=== PATIENT | female | born 1955 | race Caucasian/White ===

== ENCOUNTER 2019-08-11 17:01 | Inpatient (IN) | payer MEDICARE, OTHER ==
[2019-08-11] MEDS ORDERED: Nitroglycerin 2% Ointment 1 INCH/1 GM Packet ONE (17:48)
[2019-08-11] MEDS ORDERED: Magnesium 2 GM/50 ML BAG (IN WATER) ONE (18:00)
[2019-08-11] MEDS ORDERED: methylPREDNISolone Sod Succ/PF 125 MG/2 ML VIAL ONE (18:00)
[2019-08-11] MEDS ORDERED: Furosemide 40 MG/4 ML VIAL ONE (18:00)
[2019-08-11] MEDS ORDERED: Aspirin Chewable 81 MG TAB ONE (18:00)
[2019-08-11 18:28] LABS: #Eosinphils 0.1 thou/uL (0.0-0.7); #Lymphocytes 0.8 thou/uL (1.20-3.40); #Monocytes 0.5 thou/uL (0.11-0.59); #Neutrophils 6.9 thou/uL (1.40-6.50); %Basophils 0.1 % (0.0-1.0); %Eosinophils 0.9 % (0.0-10.0); %Lymphocytes 9.6 % (21.0-51.0); %Monocytes 5.7 % (0.0-10.0); %Neutrophils 83.6 % (42.0-75.0); Mean Corpuscular HGB CONC 32.7 g/dL (32.0-36.0); Mean Corpuscular Hemoglobin 27.4 pg (27.0-31.0); Mean Corpuscular Volume 83.6 fL (78.0-98.0); Mean Platelet Volume 11.8 fL (7.4-10.4); Platelet Count 127 thou/uL (130-400); RBC Distribution Width 15.5 % (11.5-14.5); Red Blood Cell (RBC) Count 4.37 mill/uL (4.20-5.40); White Blood Cell (WBC) Count 8.2 thou/uL (4.8-10.8)
--- NOTE | 2019-08-11 18:30 | RAD ---
CHEST TWO VIEWS: 08/11/19 COMPARISON: None. HISTORY: Difficulty breathing with shortness of breath. FINDINGS: Heart is enlarged. Pulmonary vascular congestion noted with increased linear interstitial density in the perihilar regions in both lung bases. Midline sternotomy wires are noted. No pneumothorax. Small bilateral pleural effusions. IMPRESSION: Cardiomegaly with pulmonary vascular congestion, interstitial prominence in the lung bases and bilate ral pleural effusions suggest pulmonary edema. Superimposed infection or aspiration cannot be exclude d. Follow-up imaging following treatment to document resolution advised. POS: IRLANDA
[2019-08-11 18:49] LABS: ALT (SGPT) 25 U/L (8-55); AST (SGOT) 24 U/L (5-34); Albumin 3.4 g/dL (3.4-4.8); Alkaline Phosphatase 181 U/L (40-110); Anion Gap 12 mmol/L (10-20); BUN (Urea Nitrogen) 11 mg/dL (9.8-20.1); Bilirubin, Total 0.4 mg/dL (0.2-1.2); CK (CPK) 42 U/L (29-168); Calc. Creatinine Clearance 0 mL/min (70-130); Calcium 9.7 mg/dL (7.8-10.44); Carbon Dioxide 27 mmol/L (23-31); Chloride 101 mmol/L (98-107); Estimated GFR-MDRD 28; Globulin 3.2 g/dL (2.4-3.5); Glucose 384 mg/dL (80-115); Magnesium 1.6 mg/dL (1.6-2.6); Potassium 3.9 mmol/L (3.5-5.1); Protein, Total 6.6 g/dL (6.0-8.3); Sodium 136 mmol/L (136-145)
[2019-08-11 19:17] LABS: CKMB 1.6 ng/mL (0-6.6)
--- NOTE | 2019-08-11 20:49 | PDOC.FPRHP ---
- History of Present Illness Chief Complaint: Cough, Dyspnea History of Present Illness: Pt is a 64 yo female with PMH significant for heart failure, COPD, HTN, Depression, A-Fib, CVA 2008, [place] w 2-3 stents, CABG x 2, CKD Stage III, bipolar, restless leg syndrome who presents with a 3 day history of worsening dyspnea, cough, sputum production, chest tightness. She states she recently had a COPD exacerbation treated 4 months ago. She usually requires 4 L NC during the day, bipap at night. Due to her worsening symptoms she decided to be seen. SHe continues to smoke 5 cigarettes per day. She was using her nebulizer 3x/day, continued her other medications as normally directed. She is currently in town to see family but normally is seen by her PCP in [place]. She also has a pulm physician most recently seen 1.5 months ago. ED Course: In the ED pt was found to have respiratory failure requiring initiation of bipap. She was afebrile. BNP elevated to 585, trop 0.036, BG 384. She was given lasix 40 mg IV once, duonebs with good improvement of symptoms. - Allergies/Adverse Reactions Allergies Allergy/AdvReac Type Severity Reaction Status Date / Time codeine Allergy Intermediate Hives Verified 08/12/19 07:33 - Home Medications Medication Instructions Recorded Confirmed Type Amiodarone [Cordarone] 200 mg PO DAILY 08/12/19 08/12/19 History Apixaban [Eliquis] 5 mg PO BID 08/12/19 08/12/19 History Atorvastatin Calcium 80 mg PO HS 08/12/19 08/12/19 History Budesonide-Formoterol [Symbicort 1 - 2 puff IN PRN PRN 08/12/19 08/12/19 History 80-4.5] Carvedilol [Coreg] 12.5 mg PO BID 08/12/19 08/12/19 History Donepezil HCl [Aricept] 5 mg PO HS 08/12/19 08/12/19 History FLUoxetine HCl 20 mg PO BID 08/12/19 08/12/19 History Ferrous Sulfate 325 mg PO DAILY 08/12/19 08/12/19 History Furosemide 40 mg PO BID 08/12/19 08/12/19 History Gabapentin 300 mg PO BID 08/12/19 08/12/19 History Insulin Glargine,Hum.Rec.Anlog 0 units SQ DAILY 08/12/19 08/12/19 History [Lantus] Insulin Lispro [Humalog Kwikpen] 0 unit SQ ASDIR 08/12/19 08/12/19 History Ipratropium [place] 0.5 mg NEB Q6HR 08/12/19 08/12/19 History Isosorbide Dinitrate 30 mg PO DAILY 08/12/19 08/12/19 History Levalbuterol HCl [Xopenex] 1.25 mg IH Q6HR 08/12/19 08/12/19 History Nitroglycerin [Nitrostat] 0.4 mg SL Q5MIN PRN 08/12/19 08/12/19 History Ondansetron HCl [Zofran] 4 mg PO Q6HR PRN 08/12/19 08/12/19 History Pantoprazole [Protonix] 40 mg PO BID 08/12/19 08/12/19 History Spironolactone [Aldactone] 25 mg PO DAILY 08/12/19 08/12/19 History Tiotropium [place] [Spiriva] 18 mcg IH DAILY 08/12/19 08/12/19 History clonazePAM [Klonopin] 1 mg PO TID PRN 08/12/19 08/12/19 History hydrALAZINE [Apresoline] 50 mg PO TID 08/12/19 08/12/19 History rOPINIRole HCl [Ropinirole HCl] 1 mg PO HS 08/12/19 08/12/19 History risperiDONE [RisperDAL] 0.25 mg PO DAILY 08/12/19 08/12/19 History - History PMHx: heart failure, COPD, HTN, Depression, A-Fib, CVA 2008, [place] w 2-3 stents, CABG x 2, CKD Stage III, bipolar, restless leg syndrome PSHx: R Femur Jayce placed, partial hysterectomy, benign breast tumor removal, cholecystectomy FHx: non-contributory Social: 5 cigarettes per day, denies alcohol/drugs - Review of Systems General: denies: fever/chills, weight/appetite/sleep changes ENT: denies: nasal congestion, rhinorrhea Respiratory: reports: cough, congestion, shortness of breath Cardiovascular: reports: edema, orthopnea, other (chest tightness). denies: chest pain, palpitation Gastrointestinal: denies: nausea, vomiting, diarrhea, constipation Skin: denies: rashes, lesions Neurological: denies: numbness, syncope Psychological: denies: anxiety, depression - Vital signs BP: 186/76 HR: 55 RR: 20 Tmax: 98.9 Pox: 98% on BiPAP Wt: 118 kg - Physical Exam Constitutional: NAD, awake, alert and oriented HEENT: PERRLA, EOMI Neck: supple, FROM Heart: RRR, normal S1/S2 -Heart: Trace LE edema -Lungs: Poor air movement, did not appreciate crackles or exp wheeze. Musculoskeletal: normal structure, normal tone Neurological: no focal deficit, CN II-XII intact Skin: capillary refill <2 seconds Heme/Lymphatic: no purpura, no petechia Psychiatric: good judgment and insight FMR H&P: Results - Labs Result Diagrams: 08/12/19 04:16 08/12/19 04:16 Lab results: WBC 8.2 thou/uL (4.8-10.8) 08/11/19 18:18 Hgb 12.0 g/dL (12.0-16.0) 08/11/19 18:18 Hct 36.6 % (36.0-47.0) 08/11/19 18:18 MCV 83.6 fL (78.0-98.0) 08/11/19 18:18 Plt Count 127 thou/uL (130-400) L 08/11/19 18:18 Neutrophils % 83.6 % (42.0-75.0) H 08/11/19 18:18 Sodium 136 mmol/L (136-145) 08/11/19 18:18 Potassium 3.9 mmol/L (3.5-5.1) 08/11/19 18:18 Chloride 101 mmol/L (98-107) 08/11/19 18:18 Carbon Dioxide 27 mmol/L (23-31) 08/11/19 18:18 BUN 11 mg/dL (9.8-20.1) 08/11/19 18:18 Creatinine 1.80 mg/dL (0.6-1.1) H 08/11/19 18:18 Glucose 384 mg/dL (80-115) H 08/11/19 18:18 Lactic Acid 0.6 mmol/L (0.5-2.2) 08/11/19 18:18 Calcium 9.7 mg/dL (7.8-10.44) 08/11/19 18:18 Total Bilirubin 0.4 mg/dL (0.2-1.2) 08/11/19 18:18 AST 24 U/L (5-34) 08/11/19 18:18 ALT 25 U/L (8-55) 08/11/19 18:18 Alkaline Phosphatase 181 U/L (40-110) H 08/11/19 18:18 Creatine Kinase 42 U/L (29-168) 08/11/19 18:18 CK-MB (CK-2) 1.6 ng/mL (0-6.6) 08/11/19 18:18 B-Natriuretic Peptide 585.9 pg/mL (0-100) H 08/11/19 18:18 Serum Total Protein 6.6 g/dL (6.0-8.3) 08/11/19 18:18 Albumin 3.4 g/dL (3.4-4.8) 08/11/19 18:18 - Radiology Interpretation Chest x-ray Status: report reviewed by me (Cardiomegaly w/ pulmonary congestion, pleural effusions) FMR H&P: A/P - Problem List (1) Bipolar disorder Current Visit: Yes Status: Acute Code(s): F31.9 - BIPOLAR DISORDER, UNSPECIFIED (2) Restless leg syndrome Current Visit: Yes Status: Acute (3) Acute respiratory failure with hypoxia Current Visit: Yes Status: Acute Code(s): J96.01 - ACUTE RESPIRATORY FAILURE WITH HYPOXIA (4) A-fib Current Visit: Yes Status: Chronic Code(s): I48.91 - UNSPECIFIED ATRIAL FIBRILLATION (5) CAD (coronary artery disease) Current Visit: Yes Status: Chronic Code(s): I25.10 - ATHSCL HEART DISEASE OF [place] CORONARY ARTERY W/O ANG PCTRS (6) CKD (chronic kidney disease) stage 3, GFR 30-59 ml/min Current Visit: Yes Status: Chronic Code(s): N18.3 - CHRONIC KIDNEY DISEASE, STAGE 3 (MODERATE) (7) Diabetes mellitus type 2, uncontrolled Current Visit: Yes Status: Chronic Code(s): E11.65 - TYPE 2 DIABETES MELLITUS WITH HYPERGLYCEMIA Qualifiers: Glycemic state: with hyperglycemia Qualified Code(s): E11.65 - Type 2 diabetes mellitus with hyperglycemia (8) HTN (hypertension) Current Visit: Yes Status: Chronic Code(s): I10 - ESSENTIAL (PRIMARY) HYPERTENSION (9) History of CVA (cerebrovascular accident) Current Visit: Yes Status: Chronic Code(s): Z86.73 - PRSNL HX OF TIA (TIA), AND CEREB INFRC W/O RESID DEFICITS (10) Hx of CABG Current Visit: Yes Status: Chronic - Plan Pt is here for COPD exacerbation, CHF exacerbation: # COPD Exacerbation Poor air movement on exam. Worsening cough over last 3 days with sputum production. 4 L at home during day, BiPAP during the night. Required BiPAP in the ED so admitted to the [facility]. Spoke with pt for 5 mins with BiPAP off and O2 sats in the low 90's, pt did appear to tire easily so continued BiPAP. She has hx of COPD exacerbations most recently 4 months ago in [place]. WBC WNL. - cont home meds - duonebs - levaquin continued from ed # CHF Exacerbation No records of previous echo. BNP 585 - echo pending - lasix 40 IV BID increased from home 40 PO BID # HTN Elevated on admission. - continue home meds # DM Not currently on medication. Elevated in ED. Started mild SSI. - monitor - a1c pending # A-Fib - continue home meds # Restless Leg Syndrome - continue home meds # Bipolar - continue home meds # CKD - monitor # CAD w/ 2 stents # CABG x 2 - continue home meds # Hx of CVA No motor, sensory deficits per pt - continue home meds Fluids: none Diet: HH, CC VTE: Lovenox, CrCl 59, GFR 32 Code: full Dispo: > 2 midnight stay FMR H&P: Upper Level - Plan Date/Time: 08/11/192048 ISalas MD, have evaluated this patient and agree with findings/plan as outlined by sports team marketing intern resident. Pertinent changes/additions are listed here. Emilee Fernandez is a 64 year old F with a PMH of COPD, CHF, HTN, HLD who presented to the ED with a 3 day history of dyspnea and productive cough. Has had associated decreased appetite and urine output. Normally uses 4 L NC during day and BiPAP at night. She had had to use her nebulizers about 3 times a day over the last few days. States that she has had COPD and CHF exacerbations several times over the last couple years. Emergency Management Director is in [place]. In the ED, BP was 186/76, HR 55, RR 20, and 98% on BiPAP, T was 98.9. Labs: BNP 585, Trop 0.036, WBC 8.2, Cr 1.8, Lactic acid 0.6, Glucose 384. CXR showed cardiomegaly with pulmonary vascular congestion and bilateral pleural effusions. In the ED, she was given Levaquin 750 mg, Mag Sulf 2 g, Furosemide, Methylprednisolone 125 mg, Duoneb X2, and nitro paste. Pt endorsed symptom improvement when admitting team evaluated her. On exam, patient had decreased air movement and bibasilar rales, was using BiPAP but was able to speak comfortably when removed. Trace LE edema. Admitting to [facility] for acute hypoxic respiratory failure 2/2 COPD and CHF exacerbations. Will treat for COPD exac with levaquin, steroids, and duonebs and continue BiPAP overnight and wean at tolerated. Will continue home CHF medication and increase to IV lasix 40 mg bid. Daily weights, strict I/Os. Trend troponins. Patient has HENRRY , likely to fluid overload. Anticipate that it will improve with diuresis. Anticipate hospital stay > 48 hours. Pt is full code. Please see sports team marketing intern note above for full H&P, which I have reviewed and agree with.
[2019-08-11 21:59] LABS: Troponin I 0.027 ng/mL (< 0.028)
[2019-08-11] MEDS ORDERED: hydrALAZINE 25 MG TAB PO SCH (22:30)
[2019-08-11] MEDS ORDERED: Carvedilol 6.25 MG TAB PO SCH (22:30)
[2019-08-12 00:56] LABS: Troponin I 0.057 ng/mL (< 0.028)
[2019-08-12] MEDS ORDERED: Dextrose 5% in Water 1,000 ML IV PRN (01:36)
[2019-08-12] MEDS ORDERED: Dextrose 50% Abboject 50 ML SYRINGE SLOW IVP PRN (01:36)
[2019-08-12 02:02] VITALS: BMI 40.4
[2019-08-12] MEDS ORDERED: rOPINIRole HCl 1 MG TAB PO SCH ×2 (03:45→21:00)
[2019-08-12 04:31] LABS: Hemoglobin A1c 10.3 % (4.0-6.0)
[2019-08-12 04:38] LABS: Band 2 % (5-11); Hemoglobin 11.3 g/dL (12.0-16.0); Hypochromia SLIGHT = 6-15 cells (100X) (0-5/hpf); Lymphocytes 3 % (21-51); MDiff Complete? YES; Mean Corpuscular HGB CONC 32.7 g/dL (32.0-36.0); Mean Corpuscular Hemoglobin 27.3 pg (27.0-31.0); Mean Corpuscular Volume 83.5 fL (78.0-98.0); Mean Platelet Volume 11.2 fL (7.4-10.4); Neutrophil 95 % (42-75); Platelet Count 124 thou/uL (130-400); Platelet Morphology Comment Appears Decreased; RBC Distribution Width 15.4 % (11.5-14.5); Red Blood Cell (RBC) Count 4.15 mill/uL (4.20-5.40); White Blood Cell (WBC) Count 6.6 thou/uL (4.8-10.8)
[2019-08-12 04:45] LABS: Anion Gap 13 mmol/L (10-20); BUN (Urea Nitrogen) 15 mg/dL (9.8-20.1); Calc. Creatinine Clearance 52 mL/min (70-130); Calcium 9.5 mg/dL (7.8-10.44); Carbon Dioxide 26 mmol/L (23-31); Chloride 99 mmol/L (98-107); Estimated GFR-MDRD 28; Glucose 479 mg/dL (80-115); Potassium 4.5 mmol/L (3.5-5.1); Sodium 133 mmol/L (136-145)
--- NOTE | 2019-08-12 05:32 | PDOC.FM ---
- Subjective Subjective: Pt reports doing better since admission. States she is very SOB when off of the BiPAP. Denies CP. - Objective MAR Reviewed: Yes Vital Signs & Weight: Vital Signs (12 hours) Temp Pulse Resp Pulse Ox 08/12/19 02:01 96.9 F L 08/12/19 01:36 55 L 24 H 08/12/19 01:00 100 Weight Weight 106.685 kg Most Recent Monitor Data Heart Rate from ECG 52 NIBP 173/54 NIBP BP-Mean 93 Respiration from ECG 6 SpO2 100 Result Diagrams: 08/12/19 04:16 08/12/19 04:16 Phys Exam - Physical Examination Constitutional: NAD HEENT: PERRLA, moist MMs Neck: no nodes, no JVD diminished breath sounds diffusely. Cardiovascular: RRR, no significant murmur Gastrointestinal: soft, non-tender, no distention Neurological: non-focal, moves all 4 limbs Psychiatric: normal affect, A&O x 3 Skin: no rash, normal turgor Dx/Plan (1) Acute respiratory failure with hypoxia Code(s): J96.01 - ACUTE RESPIRATORY FAILURE WITH HYPOXIA Status: Acute (2) COPD with exacerbation Code(s): J44.1 - CHRONIC OBSTRUCTIVE PULMONARY DISEASE W (ACUTE) EXACERBATION Status: Acute (3) HTN (hypertension) Code(s): I10 - ESSENTIAL (PRIMARY) HYPERTENSION Status: Chronic (4) CAD (coronary artery disease) Code(s): I25.10 - ATHSCL HEART DISEASE OF [place] CORONARY ARTERY W/O ANG PCTRS Status: Chronic (5) Hx of CABG Status: Chronic (6) CKD (chronic kidney disease) stage 3, GFR 30-59 ml/min Code(s): N18.3 - CHRONIC KIDNEY DISEASE, STAGE 3 (MODERATE) Status: Chronic (7) A-fib Code(s): I48.91 - UNSPECIFIED ATRIAL FIBRILLATION Status: Chronic (8) History of CVA (cerebrovascular accident) Code(s): Z86.73 - PRSNL HX OF TIA (TIA), AND CEREB INFRC W/O RESID DEFICITS Status: Chronic (9) Diabetes mellitus type 2, uncontrolled Code(s): E11.65 - TYPE 2 DIABETES MELLITUS WITH HYPERGLYCEMIA Status: Chronic Qualifiers: Glycemic state: with hyperglycemia Qualified Code(s): E11.65 - Type 2 diabetes mellitus with hyperglycemia - Plan Plan: Pt is here for COPD exacerbation, CHF exacerbation: # Acute hypoxic respiratory failure 2/2 COPD Exacerbation Poor air movement on exam. Worsening cough over last 3 days with sputum production. 4 L at home during day, CPAP during the night. Required BiPAP in the ED so admitted to the [facility]. Spoke with pt for 5 mins with BiPAP off and O2 sats in the low 90's, pt did appear to tire easily so continued BiPAP. She has hx of COPD exacerbations most recently 4 months ago in [place]. WBC WNL. Baseline respiratory status requires 4 L NC home O2, with BiPAP at night. - cont home meds - duonebs - levaquin continued from ed # CHF Exacerbation No records of previous echo. BNP 585 - echo pending - lasix 40 IV BID increased from home 40 PO BID # HTN Elevated on admission. - continue home meds # DM Takes Levamir 20 units BID at home. glucose elevated in ED. Started mild SSI. - monitor accuchecks ACHS. - a1c 10.3 # A-Fib - continue home meds # Restless Leg Syndrome - continue home meds # Bipolar - continue home meds # CKD - monitor # CAD w/ 2 stents # CABG x 2 - continue home meds # Hx of CVA No motor, sensory deficits per pt - continue home meds Fluids: none Diet: HH, CC VTE: Lovenox, CrCl 59, GFR 32 Code: full Dispo: > 2 midnight stay Addendum - Attending - Attending Attestation Date/Time: 08/12/19 1021 I personally evaluated the patient and discussed the management with Dr. Scott. I agree with the History, Examination, Assessment and Plan documented above with any addition or exceptions noted below. The patient continues to require bipap. No lower extremity edema noted at this time. Will continue home dose of lasix. Pulmonology is being consulted. Continue steroids, nebs, antibiotics.
[2019-08-12] MEDS ORDERED: Nitroglycerin 0.4 MG TAB (25 Tab Bottle) SL PRN (06:45)
[2019-08-12] MEDS ORDERED: Ondansetron ODT 4 MG TAB PO PRN (06:56)
[2019-08-12] MEDS ORDERED: Ipratropium Bromide 2.5 ml Neb NEB SCH (07:00)
[2019-08-12] MEDS: Mometasone/Formoterol 120 PUFF INHALER INH SCH ×2 (07:01→18:24)
[2019-08-12] MEDS: HumaLOG 300 UNITS/3 ML VIAL SC PRN ×3 (07:35→21:10)
--- NOTE | 2019-08-12 08:09 | PDOC.BPN ---
- Brief Progress Note Date/Time: 08/12/19 2796 I personally evaluated the patient and discussed the management with Dr. Richter at time of admisssion last night. H&P is pending. I agree with the History, Examination, Assessment and Plan as discussed. COPD and CHF exacerbation. She was responding well to Bipap in the ER when I evaluated her.
[2019-08-12] MEDS ORDERED: Enoxaparin Sodium 30 MG/0.3 ML SYRINGE SC SCH (09:00)
[2019-08-12] MEDS: Apixaban 5 MG TAB PO SCH ×2 (10:04→20:22)
[2019-08-12] MEDS: Spironolactone 25 MG TAB PO SCH (10:04)
[2019-08-12] MEDS: Carvedilol 6.25 MG TAB PO SCH ×2 (10:04→20:21)
[2019-08-12] MEDS: Isosorbide Dinitrate 20 MG TAB PO SCH (10:05)
[2019-08-12] MEDS: hydrALAZINE 25 MG TAB PO SCH ×3 (10:05→20:21)
[2019-08-12] MEDS: FLUoxetine HCl 20 MG CAP PO SCH ×2 (10:05→20:21)
[2019-08-12] MEDS: Ferrous Sulfate 325 MG TAB PO SCH (10:06)
[2019-08-12] MEDS: Insulin Glargine 20 UNITS in Pre-Filled Syringe 1 EACH SC SCH ×2 (10:06→21:10)
[2019-08-12] MEDS: predniSONE 20 MG TAB PO SCH (10:06)
[2019-08-12] MEDS: Gabapentin 300 MG CAP PO SCH ×2 (10:06→20:22)
[2019-08-12] MEDS: risperiDONE 0.25 MG TAB PO SCH (10:07)
[2019-08-12] MEDS ORDERED: LEVALBUTEROL HCL 1.25 MG IH SCH (12:00)
--- NOTE | 2019-08-12 15:26 | CON ---
DATE OF CONSULTATION: 08/12/2019 REASON FOR CONSULTATION: IMCU placement. HISTORY OF PRESENT ILLNESS: This is a 64-year-old female, who has been doing poorly for increasing shortness of breath over 3 days prior to admission. She normally has her care in [place], but however has visiting family. She has history of diastolic heart failure. She also has COPD and is on oxygen at 4 L nasal cannula at home. She continues to smoke about 5 cigarettes per day. She is hospitalized at least twice a year over in [place] with similar exacerbation symptoms. PAST MEDICAL HISTORY: 1. COPD. 2. Diastolic heart failure. 3. Atrial fibrillation. 4. Depression. 5. Hypertension. 6. Coronary artery disease. 7. Stroke. 8. Bipolar disorder. 9. Restless legs syndrome. PAST SURGICAL HISTORY: 1. Right femur vicente placement. 2. Hysterectomy. 3. Benign breast tumor removal. 4. Cholecystectomy. 5. Coronary artery bypass grafting surgery. SOCIAL HISTORY: Smokes 5 cigarettes per day. Does not consume alcohol. Does not use illicit drugs. MEDICATIONS: Prior to admission; 1. Amiodarone. 2. Eliquis. 3. Atorvastatin. 4. Carvedilol. 5. Aricept. 6. Fluoxetine. 7. Furosemide. 8. Gabapentin. 9. Insulin lispro. 10. Ipratropium. 11. Albuterol. 12. Spironolactone. 13. Zofran. 14. Clonazepam. 15. Hydralazine. 16. Ropinirole. 17. Risperidone. REVIEW OF SYSTEMS: Remarkable for shortness of breath, cough, congestion, subjective fever, and chills. No nausea, vomiting, hematemesis, melena, hematochezia, hematuria, or dysuria. PHYSICAL EXAMINATION: VITAL SIGNS: Temperature 97.6, pulse 67, blood pressure 176/77, and O2 saturation 100% on 2 L. GENERAL: She is awake, alert, in no distress. She is 5 feet and 4 inches, weighs 235 pounds, and BMI is 40. HEENT: Class IV Mallampati airway. NECK: Without adenopathy or JVD. LUNGS: Inspiratory crackles at both bases. CARDIAC: S1 and S2. Regular. No audible wheezing. ABDOMEN: Soft, obese, nontender, and nondistended. EXTREMITIES: No clubbing, cyanosis, or edema. LABORATORY DATA: BNP level is 585. Sodium 133, potassium 4.5, chloride 99, CO2 of 26, BUN 15, creatinine 1.8, and glucose 430. Procalcitonin level 0.5. White blood cell count 6.6, hematocrit 34.7, and platelet count 124. IMAGING DATA: Chest x-ray shows cardiomegaly along with pulmonary vascular congestion. ASSESSMENT: 1. Congestive heart failure exacerbation, diastolic. 2. Chronic obstructive pulmonary disease with exacerbation. 3. Tobacco abuse. 4. Underlying obstructive sleep apnea. PLAN: Reviewed the orders. I agree with diuresing the patient, treating with steroids, nebulization therapy, and antibiotics. She is on BiPAP at home. She needs to continue that at night. Job ID: [id number]
[2019-08-12] MEDS ORDERED: Mometasone/Formoterol 120 PUFF INHALER INH PRN (18:30)
[2019-08-12] MEDS: Atorvastatin Calcium 40 MG TAB PO SCH (20:22)
[2019-08-12] MEDS: Donepezil HCl 5 MG TAB PO SCH (20:22)
[2019-08-12] MEDS: rOPINIRole HCl 1 MG TAB PO SCH (20:22)
[2019-08-12] MEDS ORDERED: Furosemide 40 MG TAB PO SCH (21:00)
[2019-08-13 05:09] LABS: Anion Gap 8 mmol/L (10-20); BUN (Urea Nitrogen) 26 mg/dL (9.8-20.1); Calc. Creatinine Clearance 48 mL/min (70-130); Carbon Dioxide 28 mmol/L (23-31); Chloride 99 mmol/L (98-107); Estimated GFR-MDRD 25; Glucose 402 mg/dL (80-115); Potassium 4.4 mmol/L (3.5-5.1); Sodium 131 mmol/L (136-145)
[2019-08-13 05:20] LABS: Band 7 % (5-11); Hemoglobin 9.8 g/dL (12.0-16.0); Lymphocytes 9 % (21-51); MDiff Complete? YES; Mean Corpuscular HGB CONC 32.7 g/dL (32.0-36.0); Mean Corpuscular Hemoglobin 27.6 pg (27.0-31.0); Mean Corpuscular Volume 84.6 fL (78.0-98.0); Mean Platelet Volume 11.8 fL (7.4-10.4); Monocytes 6 % (0-10); Neutrophil 78 % (42-75); Platelet Count 114 thou/uL (130-400); Platelet Morphology Comment Appears Decreased; RBC Distribution Width 15.4 % (11.5-14.5); RBC Morphology Normal; Red Blood Cell (RBC) Count 3.55 mill/uL (4.20-5.40); White Blood Cell (WBC) Count 10.6 thou/uL (4.8-10.8)
--- NOTE | 2019-08-13 06:11 | PDOC.FM ---
- Subjective Subjective: Pt states she used the BiPAP machine for the majority of the day yesterday. She states today she will try and take the mask off and use NC. PT was on NC sitting in bed at 100% saturation while speaking with me. States she is starting to cough mucus up and feeling like she can take deeper breaths. - Objective MAR Reviewed: Yes Vital Signs & Weight: Vital Signs (12 hours) Temp Pulse Resp BP Pulse Ox 08/13/19 04:00 98.2 F 08/13/19 00:20 54 L 18 99 08/13/19 00:15 49 L 16 100 08/12/19 23:37 97.9 F 08/12/19 20:21 59 L 162/57 H 08/12/19 20:00 100 08/12/19 19:46 98.4 F 08/12/19 18:23 59 L 24 H 99 Weight Weight 106.685 kg Most Recent Monitor Data Heart Rate from ECG 46 NIBP 153/43 NIBP BP-Mean 79 Respiration from ECG 18 SpO2 100 I&O: 08/11/19 08/12/19 08/13/19 06:59 06:59 06:59 Intake Total 730 Output Total 500 Balance 230 Result Diagrams: 08/13/19 04:07 08/13/19 04:07 Phys Exam - Physical Examination Constitutional: NAD HEENT: moist MMs, sclera anicteric Neck: no JVD, supple, full ROM Respiratory: wheezing present diminished breath sounds. Cardiovascular: RRR, no significant murmur, no rub Gastrointestinal: soft, non-tender, no distention, positive bowel sounds Musculoskeletal: pulses present, edema present (trace BLE ) Neurological: non-focal, moves all 4 limbs Skin: no rash, normal turgor Dx/Plan (1) Acute respiratory failure with hypoxia Code(s): J96.01 - ACUTE RESPIRATORY FAILURE WITH HYPOXIA Status: Acute (2) COPD with exacerbation Code(s): J44.1 - CHRONIC OBSTRUCTIVE PULMONARY DISEASE W (ACUTE) EXACERBATION Status: Acute (3) HTN (hypertension) Code(s): I10 - ESSENTIAL (PRIMARY) HYPERTENSION Status: Chronic (4) CAD (coronary artery disease) Code(s): I25.10 - ATHSCL HEART DISEASE OF [place] CORONARY ARTERY W/O ANG PCTRS Status: Chronic (5) Hx of CABG Status: Chronic (6) CKD (chronic kidney disease) stage 3, GFR 30-59 ml/min Code(s): N18.3 - CHRONIC KIDNEY DISEASE, STAGE 3 (MODERATE) Status: Chronic (7) A-fib Code(s): I48.91 - UNSPECIFIED ATRIAL FIBRILLATION Status: Chronic (8) History of CVA (cerebrovascular accident) Code(s): Z86.73 - PRSNL HX OF TIA (TIA), AND CEREB INFRC W/O RESID DEFICITS Status: Chronic (9) Diabetes mellitus type 2, uncontrolled Code(s): E11.65 - TYPE 2 DIABETES MELLITUS WITH HYPERGLYCEMIA Status: Chronic Qualifiers: Glycemic state: with hyperglycemia Qualified Code(s): E11.65 - Type 2 diabetes mellitus with hyperglycemia - Plan Plan: Pt is here for COPD exacerbation, CHF exacerbation: # Acute hypoxic respiratory failure 2/2 COPD Exacerbation Poor air movement on exam. Worsening cough over last 3 days before admission with sputum production. Required BiPAP in the ED so admitted to the [facility]. Spoke with pt for 5 mins with BiPAP off and O2 sats in the low 90's, pt did appear to tire easily so continued BiPAP. She has hx of COPD exacerbations most recently 4 months ago in [place]. WBC WNL. Baseline respiratory status requires 4 L NC home O2, with BiPAP at night. - cont home meds - duonebs - levaquin continued from ed Blood and urine ccx no growth to date, flu A/B negative. # CHF Exacerbation, diastolic No records of previous echo. BNP 585 - echo 08/12: EF 55-60%, diastolic dysfunction. - lasix 40 BID PO. # HTN Elevated on admission. Improving. - continue home meds # DM Takes Levamir 20 units BID at home. glucose elevated in ED. Started mild SSI. - monitor accuchecks ACHS. - a1c 10.3 # A-Fib - continue home meds # Restless Leg Syndrome - continue home meds # Bipolar - continue home meds # CKD - monitor # CAD w/ 2 stents # CABG x 2 - continue home meds # Hx of CVA No motor, sensory deficits per pt - continue home meds Fluids: none Diet: HH, CC VTE: Lovenox, CrCl 59, GFR 32 Code: full Dispo: > 2 midnight stay
[2019-08-13] MEDS: HumaLOG 300 UNITS/3 ML VIAL SC PRN ×4 (06:22→20:29)
[2019-08-13] MEDS: Furosemide 40 MG TAB PO SCH ×2 (06:42→16:14)
[2019-08-13] MEDS: Mometasone/Formoterol 120 PUFF INHALER INH SCH ×2 (07:59→19:18)
[2019-08-13] MEDS: predniSONE 20 MG TAB PO SCH (09:08)
[2019-08-13] MEDS: Apixaban 5 MG TAB PO SCH ×2 (09:08→20:24)
[2019-08-13] MEDS: Isosorbide Dinitrate 20 MG TAB PO SCH (09:09)
[2019-08-13] MEDS: Ferrous Sulfate 325 MG TAB PO SCH (09:09)
[2019-08-13] MEDS: Gabapentin 300 MG CAP PO SCH ×2 (09:09→20:25)
[2019-08-13] MEDS: Carvedilol 6.25 MG TAB PO SCH ×2 (09:09→20:24)
[2019-08-13] MEDS: hydrALAZINE 25 MG TAB PO SCH ×3 (09:10→20:25)
[2019-08-13] MEDS: FLUoxetine HCl 20 MG CAP PO SCH ×2 (09:10→20:25)
[2019-08-13] MEDS: Spironolactone 25 MG TAB PO SCH (09:10)
[2019-08-13] MEDS: Insulin Glargine 20 UNITS in Pre-Filled Syringe 1 EACH SC SCH ×2 (09:10→20:29)
[2019-08-13] MEDS: risperiDONE 0.25 MG TAB PO SCH (09:11)
--- NOTE | 2019-08-13 11:34 | PRG ---
DATE OF SERVICE: 08/13/2019 SUBJECTIVE: Ms. Fernandez is in bed, talking on the phone. She says she feels better, had no acute complaints. OBJECTIVE: VITAL SIGNS: On exam, temperature 97.4, pulse 59, blood pressure 111/66, and O2 saturation 100% on nasal cannula. HEENT: Unremarkable. NECK: No adenopathy, JVD, or bruits. LUNGS: She has soft crackles in both bases. No wheezing. CARDIAC: S1 and S2. Regular. ABDOMEN: Soft. EXTREMITIES: No edema. LABORATORY DATA: White blood cell count 10.6, hematocrit 30, and platelet count 114. Sodium 131, potassium 4.4, BUN 26, creatinine 2.0, and glucose 402. ASSESSMENT: 1. Acute diastolic congestive heart failure with exacerbation. 2. Chronic obstructive pulmonary disease with possible exacerbation, although I favor decompensated heart failure being more likely cause of her issues. RECOMMENDATIONS: She is nearing the point where she can be discharged. She is currently on oral steroids. She has been switched to twice daily Lasix and she is currently on spironolactone. Pulmonary has no further recommendations. We will sign off. Job ID: [id number]
[2019-08-13] MEDS: Donepezil HCl 5 MG TAB PO SCH (20:24)
[2019-08-13] MEDS: Atorvastatin Calcium 40 MG TAB PO SCH (20:25)
[2019-08-13 20:26] VITALS: BP 144/52
[2019-08-13] MEDS: rOPINIRole HCl 1 MG TAB PO SCH (20:29)
[2019-08-14 04:13] LABS: Hemoglobin 10.1 g/dL (12.0-16.0); Hypochromia SLIGHT = 6-15 cells (100X) (0-5/hpf); Lymphocytes 14 % (21-51); MDiff Complete? YES; Mean Corpuscular HGB CONC 32.9 g/dL (32.0-36.0); Mean Corpuscular Hemoglobin 27.4 pg (27.0-31.0); Mean Corpuscular Volume 83.5 fL (78.0-98.0); Mean Platelet Volume 11.2 fL (7.4-10.4); Monocytes 4 % (0-10); Neutrophil 82 % (42-75); Platelet Count 126 thou/uL (130-400); Platelet Morphology Comment Appears Adequate; RBC Distribution Width 15.5 % (11.5-14.5); Red Blood Cell (RBC) Count 3.69 mill/uL (4.20-5.40); White Blood Cell (WBC) Count 10.6 thou/uL (4.8-10.8)
[2019-08-14 04:21] LABS: Anion Gap 12 mmol/L (10-20); BUN (Urea Nitrogen) 32 mg/dL (9.8-20.1); Calc. Creatinine Clearance 65 mL/min (70-130); Calcium 9.8 mg/dL (7.8-10.44); Carbon Dioxide 26 mmol/L (23-31); Chloride 100 mmol/L (98-107); Estimated GFR-MDRD 23; Glucose 227 mg/dL (80-115); Sodium 134 mmol/L (136-145)
--- NOTE | 2019-08-14 05:57 | PDOC.FM ---
- Subjective Subjective: upon entering the room pt is off of NC O2 and sating at 88%. She states she walked around yesterday evening and felt similar to her home baseline. She feels ready for d/c. Denies nay further coughing. States she still clears her throat occasionally. - Objective MAR Reviewed: Yes Vital Signs & Weight: Vital Signs (12 hours) Temp Pulse Resp BP Pulse Ox 08/14/19 03:43 97.8 F 08/14/19 00:00 100 08/13/19 23:45 97.8 F 08/13/19 23:21 61 16 100 08/13/19 20:25 65 144/52 H 08/13/19 20:24 144/52 H 08/13/19 20:00 100 08/13/19 19:43 98.2 F 08/13/19 19:18 59 L 20 99 08/13/19 19:17 59 L 18 100 Weight Weight 152.906 kg Most Recent Monitor Data Heart Rate from ECG 48 NIBP 146/53 NIBP BP-Mean 84 Respiration from ECG 15 SpO2 100 I&O: 08/12/19 08/13/19 08/14/19 06:59 06:59 06:59 Intake Total 1030 250 Output Total 900 550 Balance 130 -300 Result Diagrams: 08/14/19 03:38 08/14/19 03:38 Phys Exam - Physical Examination Constitutional: NAD HEENT: PERRLA, moist MMs, sclera anicteric Neck: no nodes, no JVD, supple, full ROM Respiratory: no rales, no rhonchi, clear to auscultation bilateral (slightly diminished breath sounds. ) Cardiovascular: RRR, no significant murmur, no rub Gastrointestinal: soft, non-tender, no distention Musculoskeletal: pulses present, edema present (trace BLE ) Neurological: non-focal, moves all 4 limbs Psychiatric: normal affect, A&O x 3 Skin: no rash, normal turgor, cap refill <2 seconds Dx/Plan (1) Acute respiratory failure with hypoxia Code(s): J96.01 - ACUTE RESPIRATORY FAILURE WITH HYPOXIA Status: Acute (2) COPD with exacerbation Code(s): J44.1 - CHRONIC OBSTRUCTIVE PULMONARY DISEASE W (ACUTE) EXACERBATION Status: Acute (3) HTN (hypertension) Code(s): I10 - ESSENTIAL (PRIMARY) HYPERTENSION Status: Chronic (4) CAD (coronary artery disease) Code(s): I25.10 - ATHSCL HEART DISEASE OF [place] CORONARY ARTERY W/O ANG PCTRS Status: Chronic (5) Hx of CABG Status: Chronic (6) CKD (chronic kidney disease) stage 3, GFR 30-59 ml/min Code(s): N18.3 - CHRONIC KIDNEY DISEASE, STAGE 3 (MODERATE) Status: Chronic (7) A-fib Code(s): I48.91 - UNSPECIFIED ATRIAL FIBRILLATION Status: Chronic (8) History of CVA (cerebrovascular accident) Code(s): Z86.73 - PRSNL HX OF TIA (TIA), AND CEREB INFRC W/O RESID DEFICITS Status: Chronic (9) Diabetes mellitus type 2, uncontrolled Code(s): E11.65 - TYPE 2 DIABETES MELLITUS WITH HYPERGLYCEMIA Status: Chronic Qualifiers: Glycemic state: with hyperglycemia Qualified Code(s): E11.65 - Type 2 diabetes mellitus with hyperglycemia - Plan Plan: Pt is here for COPD exacerbation, CHF exacerbation: # Acute hypoxic respiratory failure 2/2 COPD Exacerbation Poor air movement on exam. Worsening cough over last 3 days before admission with sputum production. Required BiPAP in the ED so admitted to the IMCU. Spoke with pt for 5 mins with BiPAP off and O2 sats in the low 90's, pt did appear to tire easily so continued BiPAP. She has hx of COPD exacerbations most recently 4 months ago in [place]. WBC WNL. Baseline respiratory status requires 4 L NC home O2, with BiPAP at night. - cont home meds - duonebs - levaquin continued from ed Blood and urine ccx no growth to date, flu A/B negative. # CHF Exacerbation, diastolic No records of previous echo. BNP 585 - echo 08/12: EF 55-60%, diastolic dysfunction. - lasix 40 BID PO. Spironolactone. # HTN Elevated on admission. Improving. - continue home meds # DM Takes Levamir 20 units BID at home. glucose elevated in ED. Started mild SSI. - monitor accuchecks ACHS. - a1c 10.3 # A-Fib - continue home meds # Restless Leg Syndrome - continue home meds # Bipolar - continue home meds # CKD - monitor # CAD w/ 2 stents # CABG x 2 - continue home meds # Hx of CVA No motor, sensory deficits per pt - continue home meds Fluids: none Diet: HH, CC VTE: Lovenox, CrCl 59, GFR 32 Code: full Dispo: > 2 midnight stay
[2019-08-14] MEDS: Furosemide 40 MG TAB PO SCH (06:29)
[2019-08-14] MEDS: HumaLOG 300 UNITS/3 ML VIAL SC PRN ×2 (06:30→11:26)
[2019-08-14] MEDS: Mometasone/Formoterol 120 PUFF INHALER INH SCH (08:11)
[2019-08-14] MEDS: Isosorbide Dinitrate 20 MG TAB PO SCH (09:55)
[2019-08-14] MEDS: predniSONE 20 MG TAB PO SCH (09:55)
[2019-08-14] MEDS: Carvedilol 6.25 MG TAB PO SCH (09:56)
[2019-08-14] MEDS: Gabapentin 300 MG CAP PO SCH (09:56)
[2019-08-14] MEDS: hydrALAZINE 25 MG TAB PO SCH (09:56)
[2019-08-14] MEDS: Ferrous Sulfate 325 MG TAB PO SCH (09:56)
[2019-08-14] MEDS: FLUoxetine HCl 20 MG CAP PO SCH (09:56)
[2019-08-14] MEDS: risperiDONE 0.25 MG TAB PO SCH (09:57)
[2019-08-14] MEDS: Spironolactone 25 MG TAB PO SCH (09:57)
[2019-08-14] MEDS: Insulin Glargine 20 UNITS in Pre-Filled Syringe 1 EACH SC SCH (09:57)
[2019-08-14] MEDS: Apixaban 5 MG TAB PO SCH (09:57)
[2019-08-14 11:16] VITALS: TEMP 98.4
[2019-08-14] MEDS ORDERED: HumaLOG 300 UNITS/3 ML VIAL SC SCH (12:00)
--- NOTE | 2019-08-14 12:44 | PRG ---
DATE OF SERVICE: 08/14/2019 SUBJECTIVE: The patient is feeling well and wants to go home. OBJECTIVE: VITAL SIGNS: Her temperature is 98.4, pulse 54, blood pressure 173/71, O2 saturation 100%. HEENT: Unremarkable. NECK: No adenopathy or JVD. LUNGS: Clear anteriorly. No crackles. No wheezing. CARDIAC: S1, S2. Regular. ABDOMEN: Soft. EXTREMITIES: No edema. LABORATORY DATA: White blood cell count 10.6, hematocrit 30.8, and platelet count 126. Sodium 134, potassium 4, chloride 100, CO2 of 26, BUN 32, creatinine 2.1, and glucose 227. ASSESSMENT: 1. Chronic obstructive pulmonary disease with exacerbation. 2. Diastolic congestive heart failure with exacerbation. PLAN: This patient is ready for discharge. 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 We will sign off the case. Please recall if further assistance needed. Job ID: [id number]
[2019-08-15] MEDS ORDERED: Furosemide 20 MG TAB PO SCH (09:00)
--- NOTE | 2019-08-16 10:41 | DIS ---
DATE OF ADMISSION: 08/11/2019 DATE OF DISCHARGE: 08/14/2019 RESIDENT: Mary Scott DO. ADMITTING ATTENDING: Brooks Cortés MD. DISCHARGE ATTENDING: Immanuel Begum MD. CONSULTS: 1. Case Management. 2. Pulmonary, Dr. Little. 3. Cardiac Rehab team. 4. CV team routine. 5. Dietitian routine. 6. Walking program. PROCEDURES: Echocardiogram was difficult study with poor endocardial definition with the left atrium severely dilated. The left ventricular ejection fraction is 55% to 60% with EA flow reversal noted suggestive of diastolic dysfunction. DIAGNOSES: 1. Acute hypoxic respiratory failure secondary to chronic obstructive pulmonary disease exacerbation. 2. Congestive heart failure exacerbation, heart failure with preserved ejection fraction. 3. Hypertension. 4. Diabetes mellitus type 2, uncontrolled. 5. Atrial fibrillation. 6. Restless legs syndrome. 7. Bipolar disorder. 8. Chronic kidney disease. 9. Coronary artery disease with x 2 stents and status post coronary artery bypass grafting x2 vessels. 10. History of cerebrovascular accident. DISCHARGE MEDICATIONS: 1. Amiodarone 200 mg p.o. daily. 2. Eliquis 5 mg p.o. b.i.d. 3. Atorvastatin 80 mg p.o. at bedtime. 4. Symbicort inhaler 1 to 2 puffs inhaled p.r.n. 5. Carvedilol 12.5 mg p.o. b.i.d. 6. Aricept 5 mg p.o. at bedtime. 7. Fluoxetine 20 mg p.o. b.i.d. 8. Ferrous sulfate 325 mg p.o. daily. 9. Furosemide 60 mg p.o. daily. 10. Gabapentin 100 mg p.o. b.i.d. 11. Humalog 5 units subcu t.i.d. before meals. 12. Insulin Lantus 20 units subcu b.i.d. 13. Ipratropium bromide solution 0.5 mg nebulizer q.6 hours p.r.n. 14. Isosorbide dinitrate 30 mg p.o. daily. 15. Levalbuterol 1.25 mg inhaled q.6 hours p.r.n. 16. Levaquin 750 mg p.o. daily for 4 more days. 17. Dulera inhaler 2 puffs inhaled b.i.d. 18. Nitrostat 0.4 mg sublingual q.5 p.r.n. chest pain. 19. Protonix 40 mg p.o. b.i.d. 20. Spironolactone 25 mg p.o. daily. 21. Spiriva 18 mcg inhaled daily. 22. Klonopin 1 mg p.o. t.i.d. 23. Hydralazine 50 mg p.o. t.i.d. 24. Prednisone 40 mg p.o. daily. 25. Ropinirole 1 mg p.o. at bedtime. 26. Risperdal 0.25 mg p.o. daily. DISCONTINUED MEDICATIONS: Furosemide 40 mg p.o. b.i.d., changed to 60 mg p.o. once daily. HISTORY OF PRESENT ILLNESS/HOSPITAL COURSE: The patient is a 64-year-old female who came in with acute hypoxic respiratory failure secondary to COPD exacerbation as well as acute CHF exacerbation. The patient was diuresed originally with IV Lasix and then transitioned to p.o. Lasix once her volume status became euvolemic. The patient was treated for COPD exacerbation with DuoNeb, Levaquin, and prednisone oral. The patient showed marked good respiratory improvement throughout her hospital stay, was eager to go home with close followup with primary care. The patient had elevated blood sugars while in the hospital was high as 350. She is requiring moderate sliding scale for her blood sugars. We changed her insulin dose to include 5 units of insulin Humalog before meals t.i.d. and keeping the 20 units of Lantus b.i.d. The patient understands to check her blood sugars regularly and to reevaluate if this is needed once she finishes her course of oral prednisone. The patient will follow up with primary care physician and have this checked and look at her regimen in 3 days' time. DISPOSITION: The patient is stable upon discharge with better respiratory status as well as lower blood sugars. DISCHARGE INSTRUCTIONS: 1. Location: To home. 2. Diet: Heart healthy and consistent carb. 3. Activity: As tolerated. 4. Followup: With primary care in 3 days' time and follow up with snubber in 1 week. Job ID: [id number] [facility]US[facility]abella
== END 2019-08-14 13:10 | disposition home or self-care (01) | DRG 291 ==
LOC: ERS 17:01 → ERHOLD 20:52 → IMCU/EMU 08-12 01:01
PROVIDERS: ADMIT Family Medicine; ATTEND Family Medicine
DX: I13.0 Hypertensive heart and chronic kidney disease with heart failure and stage 1 through stage 4 chronic kidney disease, or unspecified chronic kidney disease (principal); J96.01 Acute respiratory failure with hypoxia; I50.33 Acute on chronic diastolic (congestive) heart failure; J44.1 Chronic obstructive pulmonary disease with (acute) exacerbation; N17.9 Acute kidney failure, unspecified; I48.91 Unspecified atrial fibrillation; Z86.73 Personal history of transient ischemic attack (TIA), and cerebral infarction without residual deficits; Z95.1 Presence of aortocoronary bypass graft; I25.10 Atherosclerotic heart disease of native coronary artery without angina pectoris; N18.3 Chronic kidney disease, stage 3 (moderate); G25.81 Restless legs syndrome; Z88.5 Allergy status to narcotic agent; Z90.711 Acquired absence of uterus with remaining cervical stump; Z90.49 Acquired absence of other specified parts of digestive tract; Z79.4 Long term (current) use of insulin; F31.9 Bipolar disorder, unspecified; E11.65 Type 2 diabetes mellitus with hyperglycemia; E11.22 Type 2 diabetes mellitus with diabetic chronic kidney disease; G47.33 Obstructive sleep apnea (adult) (pediatric); I25.2 Old myocardial infarction; F17.210 Nicotine dependence, cigarettes, uncomplicated; Z99.81 Dependence on supplemental oxygen
CPT/HCPCS: 36415; 36416; 71046; 80048; 80053; 82550; 82553; 83036; 83605; 83735; 83880; 84145; 84484; 85007; 85025; 85027; 87040; 87086; 87149; 87804; 93005; 93306; 93798; 94640; 94660; 96365; 96366; 96375; 99292; J1815; J1940; J1956; J2930; J3475; J7512; J7620

== ENCOUNTER 2020-09-16 19:00 | Inpatient (IN) | payer MEDICARE, OTHER ==
[~2020-09-16 19:00] MED LIST: Iopamidol-370 76% 500 ML 1 ML ONE
[2020-09-16] MEDS ORDERED: Nitroglycerin 2% Ointment 1 INCH/1 GM Packet ONE (19:22)
[2020-09-16] MEDS ORDERED: methylPREDNISolone Sod Succ/PF 125 MG/2 ML VIAL ONE (19:22)
[2020-09-16] MEDS ORDERED: Albuterol Sulfate 1.25 MG/3 ML NEB ONE (19:22)
--- NOTE | 2020-09-16 19:29 | RAD ---
EXAM: Single view of the chest HISTORY: Chest pain COMPARISON: 08/11/2019 FINDINGS: Single view of the chest shows an enlarged cardiomediastinal silhouette. The patient is st atus post sternotomy for CABG. Diffuse increased interstitial lung markings are present. Bilateral pulmonary vascular enlargement is seen. There is no evidence of consolidation, mass, or pleural effus ion. Degenerative changes are seen in the spine. IMPRESSION: Stable cardiomegaly
[2020-09-16 19:40] LABS: #Lymphocytes 1.1 thou/uL (1.20-3.40); #Monocytes 0.4 thou/uL (0.11-0.59); #Neutrophils 5.5 thou/uL (1.40-6.50); %Basophils 0.1 % (0.0-1.0); %Eosinophils 0.3 % (0.0-10.0); %Monocytes 5.9 % (0.0-10.0); %Neutrophils 77.6 % (42.0-75.0); Mean Corpuscular HGB CONC 32.9 g/dL (32.0-36.0); Mean Corpuscular Hemoglobin 27.3 pg (27.0-31.0); Mean Platelet Volume 9.2 fL (7.4-10.4); Platelet Count 181 thou/uL (130-400); RBC Distribution Width 14.8 % (11.5-14.5); Red Blood Cell (RBC) Count 4.02 mill/uL (4.20-5.40); White Blood Cell (WBC) Count 7.1 thou/uL (4.8-10.8)
[2020-09-16 20:02] LABS: ALT (SGPT) 8 U/L (8-55); AST (SGOT) 12 U/L (5-34); Alkaline Phosphatase 157 U/L (40-110); Anion Gap 13 mmol/L (10-20); BUN (Urea Nitrogen) 16 mg/dL (9.8-20.1); Bilirubin, Total 0.2 mg/dL (0.2-1.2); CK (CPK) 30 U/L (29-168); Calc. Creatinine Clearance 0 mL/min (70-130); Calcium 8.2 mg/dL (7.8-10.44); Carbon Dioxide 24 mmol/L (23-31); Chloride 108 mmol/L (98-107); Globulin 3.5 g/dL (2.4-3.5); Glucose 143 mg/dL (80-115); Potassium 3.2 mmol/L (3.5-5.1); Protein, Total 6.5 g/dL (5.8-8.1); Sodium 142 mmol/L (136-145)
[2020-09-16 20:22] LABS: CKMB 1.5 ng/mL (0-6.6)
[2020-09-16] MEDS ORDERED: Furosemide 40 MG/4 ML VIAL ONE (20:42)
--- NOTE | 2020-09-16 21:42 | CT ---
EXAM: CTA of the chest HISTORY: Dyspnea COMPARISON: Chest x-ray 09/16/2020 TECHNIQUE: Multiple contiguous axial images were obtained a CTA of the chest with contrast per pulmon clarissa embolism protocol. 3-D oblique MIP reformats and direct coronal reformats were performed. FINDINGS: HEART: Global cardiomegaly. There is lipomatous hypertrophy of the intra-atrial septum. Calcification s in the coronary arteries. The patient is status post sternotomy for CABG. PULMONARY ARTERIES: Normal in caliber without filling defects to suggest pulmonary emboli. MEDIASTINUM: No hilar or mediastinal lymphadenopathy. Small hiatal hernia. LUNGS: Interstitial markings in lung bases may represent interstitial edema. Left basilar atelectasis . No focal infiltrates or masses. PLEURAL SPACE: No pleural effusion or pneumothorax. CHEST WALL SOFT TISSUES: Unremarkable VISUALIZED OSSEOUS STRUCTURES: Degenerative changes in the spine. VISUALIZED SUBDIAPHRAGMATIC STRUCTURES: Unremarkable IMPRESSION: 1. No evidence of pulmonary thromboembolism 2. Cardiomegaly and interstitial edema may be secondary to congestive heart failure.
[2020-09-16] MEDS ORDERED: Senokot S 8.6-50 MG TAB PO PRN (22:33)
[2020-09-16] MEDS ORDERED: Acetaminophen 325 MG TAB PO PRN (22:33)
[2020-09-16] MEDS ORDERED: Dextrose 5% in Water 1,000 ML IV PRN (22:48)
[2020-09-16] MEDS ORDERED: Dextrose 50% Abboject 50 ML SYRINGE SLOW IVP PRN (22:48)
[2020-09-16] MEDS ORDERED: Nitroglycerin 0.4 MG TAB (25 Tab Bottle) SL PRN (22:49)
[2020-09-16 23:30] LABS: Troponin I 0.116 ng/mL (< 0.028)
[2020-09-17] MEDS ORDERED: clonazePAM 1 MG TAB PO PRN (00:14)
[2020-09-17] MEDS ORDERED: hydrALAZINE 20 MG/ML VIAL SLOW IVP PRN (00:28)
[2020-09-17] MEDS ORDERED: Potassium Chloride 20 MEQ TAB PO SCH (00:30)
--- NOTE | 2020-09-17 01:30 | HP ---
This is NESTOR Sen dictating a report for JOSE MARTIN CARUSO MD. PCP: Daya Jaime. CHIEF COMPLAINT: Chest pain, shortness of breath. HISTORY OF PRESENT ILLNESS: Ms. Fernandez is a 65-year-old female who presented to the emergency room today with chest pain, shortness of breath, generalized malaise. She has a past medical history pertinent for diabetes, coronary artery disease, hypertension, COPD, chronic kidney disease, CHF, and has had a CVA in the past. She reports that she went to visit her aunt who lives out [place] the country, stayed there for a couple of days, did not feel well, so came home. She reports that she has chest pressure with increased shortness of breath. She reports that she does not use an inhaler anymore. She did have a prescription for Dulera, but she says she does not use it. She only uses her nebulizer machine. She was given 325 mg of aspirin and three sprays of nitroglycerin per EMS prior to arrival and states that she had slight relief but was still complaining of the shortness of breath. She was wheezing on arrival. She denied any palpitations, radiation of her chest pain, fever, or chills. Her workup in the ER revealed a hypokalemia with a potassium of 3.2, chloride 108, creatinine at 1.82. The last time we checked it was January of 2020 and it was 1.74, so slightly worse. Glucose at 143, alkaline phosphatase at 157. Her initial troponin 0.080 and 0.116. BNP was 815, which is higher than it was in January of last year. Her D-dimer is elevated at 2.88. White blood cell count is 7.1, hemoglobin 11, hematocrit 33.4, platelet count 181. She does also have a history of AFib and was on Eliquis, but reports they took her off that because it makes her bleed. She had a CTA of the chest after an elevated D-dimer, which showed no evidence of pulmonary emboli. She does, however, demonstrate some cardiomegaly and interstitial edema secondary to congestive heart failure. She wears oxygen at home normally and is at 2 L which is where she is currently and saturating about 98%. She was given a DuoNeb in the emergency room and states that that did make her feel better. She will be admitted to the telemetry unit for further management. REVIEW OF SYSTEMS: The patient reports chest pain; reports dyspnea on exertion; reports edema localized to lower extremities; reports a cough, shortness of breath; reports wheezing. She denies fever, chills. All systems are reviewed and are negative unless mentioned in the HPI or above. PAST MEDICAL HISTORY: Please see HPI. SURGICAL HISTORY: Benign breast tumors. She has a vicente in the right leg, cholecystectomy, hysterectomy, cardiac stents. PSYCHIATRIC HISTORY: Anxiety and bipolar. SOCIAL HISTORY: She is a smoker, smokes at least two per day. She denies any alcohol or drug use. She lives at home with her family. ALLERGIES: TO CODEINE. HOME MEDICATIONS: 1. Spironolactone 25 mg p.o. daily. 2. Hydralazine 50 mg p.o. t.i.d. 3. Aricept 5 mg p.o. h.s. 4. Atorvastatin 80 mg p.o. h.s. 5. Cordarone 200 mg p.o. daily. 6. Coreg 25 mg p.o. daily. 7. Ferrous sulfate 325 mg p.o. daily. 8. Fluoxetine 20 mg p.o. daily. 9. Gabapentin 300 mg p.o. b.i.d. 10. lispro subcu. 11. Isosorbide 30 mg p.o. daily. 12. Klonopin 1 mg p.o. t.i.d. p.r.n. 13. Lantus 20 units subcu b.i.d. 14. Lasix 40 mg p.o. b.i.d. 15. Nitroglycerin 0.4 sublingual q.5 minutes p.r.n. 16. Protonix 40 mg p.o. b.i.d. 17. Risperdal 0.25 mg h.s. 18. mg p.o. h.s. 19. Dulera 1 to 2 puffs p.r.n. 20. DuoNeb q.6 hours as needed. PHYSICAL EXAMINATION: VITAL SIGNS: Blood pressure 193/73, pulse is 79, respiratory rate is 22, temp is 98.7, pO2 sats are 100% on 2 L. CONSTITUTIONAL: She is alert and oriented to person, place, and time. She is a little hypertensive. HEENT: Head is atraumatic, normocephalic. Pupils equal, round, and reactive to light. ENT: Mouth exam is normal. Mucous membranes are moist. NECK: Normal range of motion. Trachea is midline. There is no JVD noted. RESPIRATORY/CHEST: She has some diffuse wheezing bilaterally. Chest expansion is equal. CARDIOVASCULAR: Irregularly irregular. Heart sounds are normal. She does have edema, bilateral, to lower extremities. ABDOMINAL: Nontender. Bowel sounds are heard. BACK: Normal range of motion. No tenderness. UPPER EXTREMITIES: Normal motor strength. Radial pulses are normal. LOWER EXTREMITIES: Motor strength is normal. Edema +1 to bilateral lower extremities. NEURO: The patient is oriented to person, place, and time. Speech is normal. SKIN: Warm, dry, and with multiple ecchymoses on upper extremities. PSYCH: Has a normal affect. Alert and oriented to person, place, and time. PLAN/ASSESSMENT: 1. The patient's increased work of breathing, shortness of breath, and potentially chest pain are probably multifactorial. She has chronic kidney disease, congestive heart failure, and chronic obstructive pulmonary disease and continues to smoke. She is oxygen-dependent, although her oxygen demands are not increased at this time. This appears stable. We will add back the Dulera. Continue nebs q.6 p.r.n. Add Lasix intravenous push. We will gently diurese. We will trend the troponins. We will add an echocardiogram as she does not have one in our system since 2019. Smoking cessation counseling offered. 2. History of diabetes type 2. Add Accu-Cheks a.c., h.s. We will restart her home Lantus, add sliding scale as needed for coverage. 3. History of hypertension. We will restart her home medications. 4. History of bipolar and depression. We will restart her home medications. 5. We will add sequential compression devices for deep venous thrombosis prevention. For now, we will continue her Protonix b.i.d. for peptic ulcer disease prevention. 6. Hypokalemia. We will add 40 mEq of potassium tonight and again in the morning. We will recheck her lab values. 7. The patient wears a continuous positive airway pressure at night, which we have asked Respiratory Therapy to help set it up for tonight. 8. Case discussed with Dr. Caruso. 9. Hospital course dependent on clinical findings. Job ID: [id number]
[2020-09-17 01:31] VITALS: BMI 37.4
[2020-09-17 01:38] LABS: Troponin I 0.099 ng/mL (< 0.028)
[2020-09-17 05:13] LABS: #Lymphocytes 0.5 thou/uL (1.20-3.40); #Neutrophils 5.3 thou/uL (1.40-6.50); %Basophils 0.2 % (0.0-1.0); %Eosinophils 0.1 % (0.0-10.0); %Lymphocytes 7.8 % (21.0-51.0); %Monocytes 0.7 % (0.0-10.0); %Neutrophils 91.3 % (42.0-75.0); Hemoglobin 10.4 g/dL (12.0-16.0); Mean Corpuscular HGB CONC 32.9 g/dL (32.0-36.0); Mean Corpuscular Hemoglobin 27.2 pg (27.0-31.0); Mean Corpuscular Volume 82.7 fL (78.0-98.0); Mean Platelet Volume 9.2 fL (7.4-10.4); Platelet Count 182 thou/uL (130-400); RBC Distribution Width 14.6 % (11.5-14.5); Red Blood Cell (RBC) Count 3.82 mill/uL (4.20-5.40); White Blood Cell (WBC) Count 5.8 thou/uL (4.8-10.8)
[2020-09-17 05:30] LABS: ALT (SGPT) 7 U/L (8-55); AST (SGOT) 10 U/L (5-34); Albumin 2.8 g/dL (3.4-4.8); Alkaline Phosphatase 145 U/L (40-110); Anion Gap 12 mmol/L (10-20); BUN (Urea Nitrogen) 19 mg/dL (9.8-20.1); Bilirubin, Total 0.3 mg/dL (0.2-1.2); Calc. Creatinine Clearance 45 mL/min (70-130); Calcium 8.2 mg/dL (7.8-10.44); Carbon Dioxide 24 mmol/L (23-31); Chloride 106 mmol/L (98-107); Globulin 3.4 g/dL (2.4-3.5); Glucose 304 mg/dL (80-115); Potassium 3.8 mmol/L (3.5-5.1); Protein, Total 6.2 g/dL (5.8-8.1); Sodium 138 mmol/L (136-145)
[2020-09-17] MEDS: HumaLOG 300 UNITS/3 ML VIAL SC PRN ×2 (06:40→17:42)
[2020-09-17] MEDS: Mometasone 200 MCG/Formoterol 5 MCG 120 PUFF INHALER INH SCH ×2 (08:05→20:19)
[2020-09-17] MEDS: hydrALAZINE 25 MG TAB PO SCH ×3 (08:50→20:23)
[2020-09-17] MEDS: Carvedilol 25 MG TAB PO SCH ×2 (08:51→17:41)
[2020-09-17] MEDS: FLUoxetine HCl 20 MG CAP PO SCH (08:51)
[2020-09-17] MEDS: Isosorbide Dinitrate 20 MG TAB PO SCH (08:52)
[2020-09-17] MEDS: Furosemide 40 MG/4 ML VIAL SLOW IVP SCH (08:53)
[2020-09-17] MEDS: Spironolactone 25 MG TAB PO SCH (08:53)
[2020-09-17] MEDS: Ferrous Sulfate 325 MG TAB PO SCH (08:53)
[2020-09-17] MEDS: Amiodarone 200 MG TAB PO SCH (08:53)
[2020-09-17] MEDS: Gabapentin 300 MG CAP PO SCH ×2 (08:53→20:21)
[2020-09-17] MEDS: Potassium Chloride 20 MEQ TAB PO SCH (08:53)
[2020-09-17] MEDS ORDERED: Furosemide 40 MG/4 ML VIAL SLOW IVP SCH (09:00)
[2020-09-17] MEDS ORDERED: Apixaban 5 MG TAB PO SCH (09:00)
[2020-09-17] MEDS ORDERED: Famotidine 20 MG TAB PO SCH (09:00)
[2020-09-17] MEDS: Insulin Glargine 20 UNITS in Pre-Filled Syringe 1 EACH SC SCH ×2 (09:14→20:23)
--- NOTE | 2020-09-17 10:02 | PDOC.HOSPP ---
- Subjective Encounter Date: 09/17/20 Encounter Time: 10:00 Subjective: Ms. Fernandez was seen today in follow-up of CHF exacerbation. She says she is still short of breath, but it is a little better. She says the pressure on her chest has improved. - Objective Vital Signs & Weight: Vital Signs (12 hours) Temp Pulse Resp BP Pulse Ox 09/17/20 08:06 94 L 09/17/20 08:05 71 16 94 L 09/17/20 05:30 177/80 H 09/17/20 05:02 97.1 F L 67 16 194/85 H 92 L 09/16/20 23:45 164/86 H 09/16/20 23:30 98.0 F 75 24 H 197/77 H 97 Weight Weight 218 lb I&O: 09/16/20 09/17/20 09/18/20 06:59 06:59 06:59 Intake Total 480 Output Total 700 Balance -220 Result Diagrams: 09/17/20 04:58 09/17/20 04:58 Additional Labs: Accuchecks 09/17/20 05:20 POC Glucose 267 H Hospitalist ROS - Medication Medications: Active Medications Generic Name Dose Route Start Last Admin Trade Name Freq PRN Reason Stop Dose Admin Amiodarone HCl 200 mg 09/17/20 09:00 09/17/20 08:53 Amiodarone 200 Mg Tab PO 200 mg DAILY LAURYN Administration Carvedilol 12.5 mg 09/17/20 08:00 09/17/20 08:51 Carvedilol 25 Mg Tab PO 12.5 mg BID-WM LAURYN Administration Ferrous Sulfate 325 mg 09/17/20 08:00 09/17/20 08:53 Ferrous Sulfate 325 Mg Tab PO 325 mg QAM-WM LAURYN Administration Fluoxetine HCl 20 mg 09/17/20 09:00 09/17/20 08:51 Fluoxetine Hcl 20 Mg Cap PO 20 mg DAILY LAURYN Administration Furosemide 40 mg 09/17/20 09:00 09/17/20 08:53 Furosemide 40 Mg/4 Ml Vial SLOW IVP 40 mg DAILY LAURYN Administration Gabapentin 300 mg 09/17/20 09:00 09/17/20 08:53 Gabapentin 300 Mg Cap PO 300 mg BID LAURYN Administration Hydralazine HCl 50 mg 09/17/20 09:00 09/17/20 08:50 Hydralazine 25 Mg Tab PO 50 mg TID LAURYN Administration Insulin Glargine 20 units/ 0.2 mls @ 0 mls/hr 09/17/20 09:00 09/17/20 09:14 Miscellaneous Medication SC 0.2 mls BID LAURYN Administration Insulin Human Lispro 0 units 09/16/20 22:48 09/17/20 06:40 Humalog 300 Units/3 Ml Vial SC 4 unit .MILD SLIDING SCALE PRN Administration Mild Correctional Scale Isosorbide Dinitrate 30 mg 09/17/20 09:00 09/17/20 08:52 Isosorbide Dinitrate 20 Mg Tab PO 30 mg DAILY LAURYN Administration Mometasone Furoate/Formoterol Fumar 1 puff 09/17/20 06:30 09/17/20 08:05 Mometasone 200 Mcg/Formoterol 5 Mcg 120 Puff Inhaler INH 1 puff BID-RT LAURYN Administration Pantoprazole Sodium 40 mg 09/17/20 09:00 09/17/20 08:51 Pantoprazole 40 Mg Tab PO 40 mg BID LAURYN Administration Potassium Chloride 40 meq 09/17/20 08:00 09/17/20 08:53 Potassium Chloride 20 Meq Tab PO 40 meq QAM-WM [facility] Administration Spironolactone 25 mg 09/17/20 08:00 09/17/20 08:53 Spironolactone 25 Mg Tab PO 25 mg QAM-WM LAURYN Administration Hospitalist Exam Vitals: Vital Signs (12 hours) Temp Pulse Resp BP Pulse Ox 09/17/20 08:06 94 L 09/17/20 08:05 71 16 94 L 09/17/20 05:30 177/80 H 09/17/20 05:02 97.1 F L 67 16 194/85 H 92 L 09/16/20 23:45 164/86 H 09/16/20 23:30 98.0 F 75 24 H 197/77 H 97 Weight Weight 218 lb Eye: PERRL, anicteric sclera Heart: RRR, no gallops, no rubs, murmur present, II/IV Respiratory: rales (at the bases, no wheezing or rhonchi) Gastrointestinal: soft (mildly distended), normal bowel sounds, no palpable masses, no hepatomegaly, no splenomegaly, no guarding Extremities: no cyanosis (pulses are palpable but diminished), no edema Hosp A/P (1) Acute on chronic diastolic heart failure Code(s): I50.33 - ACUTE ON CHRONIC DIASTOLIC (CONGESTIVE) HEART FAILURE Status: Acute (2) Acute respiratory failure with hypoxia Code(s): J96.01 - ACUTE RESPIRATORY FAILURE WITH HYPOXIA Status: Acute (3) CKD (chronic kidney disease) stage 3, GFR 30-59 ml/min Code(s): N18.3 - CHRONIC KIDNEY DISEASE, STAGE 3 (MODERATE) * DO NOT USE * Status: Chronic (4) Diabetes mellitus type 2, uncontrolled Code(s): E11.65 - TYPE 2 DIABETES MELLITUS WITH HYPERGLYCEMIA Status: Chronic Qualifiers: Glycemic state: with hyperglycemia Qualified Code(s): E11.65 - Type 2 diabetes mellitus with hyperglycemia (5) HTN (hypertension) Code(s): I10 - ESSENTIAL (PRIMARY) HYPERTENSION Status: Chronic (6) History of CVA (cerebrovascular accident) Code(s): Z86.73 - PRSNL HX OF TIA (TIA), AND CEREB INFRC W/O RESID DEFICITS Status: Chronic (7) Hx of CABG Status: Chronic (8) COPD (chronic obstructive pulmonary disease) Status: Acute - Plan * [facility] * Will also need to obtain the records from [facility]- she says she had a stress test and cardiac cath about 6 months ago. * Screen for thyroid disease * HTN- blood pressure is elevated- will re-start her home medications and titrate if needed * RAY- continue CPAP, and her last Sleep study was about 5-6 years ago. * DM- continue her home insulin dose, as well as SSI * AFIB- ? this is in her current records, and one of her medications is listed as Amiodarone- Will need her records. * COPD- stable- continue her home medications
[2020-09-17 10:29] LABS: SARS-CoV-2 PCR by NAA DETECTED (NotDetected)
[2020-09-17 10:51] LABS: Free T4 (Free Thyroxine) 1.19 ng/dL (0.70-1.48); Thyroid Stimulating Hormone 0.381 uIU/mL (0.35-4.94)
[2020-09-17] MEDS: rOPINIRole HCl 1 MG TAB PO SCH (20:21)
[2020-09-17] MEDS: Donepezil HCl 5 MG TAB PO SCH (20:22)
[2020-09-17] MEDS: Atorvastatin Calcium 40 MG TAB PO SCH (20:23)
[2020-09-17] MEDS: risperiDONE 0.25 MG TAB PO SCH (20:23)
[2020-09-17 21:37] LABS: Amphetamine Not Detected (NotDetected); Barbiturates Screen Not Detected (NotDetected); Benzodiazepine Screen Not Detected (NotDetected); Cocaine Metabolite Screen Not Detected (NotDetected); Medtox Control Line Valid? VALID (VALID); Medtox Reader # READER 4; Methadone Not Detected (NotDetected); Methamphetamine Not Detected (NotDetected); Opiate Screen Not Detected (NotDetected); Oxycodone Screen Not Detected (NotDetected); Phencyclidine (PCP) Not Detected (NotDetected); THC/Cannabinoid Screen Not Detected (NotDetected); Tricyclic Screen Not Detected (NotDetected)
[2020-09-18] MEDS: HumaLOG 300 UNITS/3 ML VIAL SC PRN (06:41)
[2020-09-18] MEDS: Mometasone 200 MCG/Formoterol 5 MCG 120 PUFF INHALER INH SCH ×2 (08:51→19:58)
[2020-09-18] MEDS: Carvedilol 25 MG TAB PO SCH ×2 (09:05→16:43)
[2020-09-18 09:13] LABS: #Lymphocytes 1.3 thou/uL (1.20-3.40); #Monocytes 0.5 thou/uL (0.11-0.59); %Basophils 0.6 % (0.0-1.0); %Eosinophils 0.1 % (0.0-10.0); %Monocytes 7.8 % (0.0-10.0); %Neutrophils 68.6 % (42.0-75.0); Hemoglobin 9.5 g/dL (12.0-16.0); Mean Corpuscular HGB CONC 32.6 g/dL (32.0-36.0); Mean Corpuscular Hemoglobin 27.1 pg (27.0-31.0); Mean Corpuscular Volume 83.3 fL (78.0-98.0); Mean Platelet Volume 9.4 fL (7.4-10.4); Platelet Count 158 thou/uL (130-400); RBC Distribution Width 14.8 % (11.5-14.5); White Blood Cell (WBC) Count 5.8 thou/uL (4.8-10.8)
[2020-09-18 09:35] LABS: Anion Gap 10 mmol/L (10-20); BUN (Urea Nitrogen) 30 mg/dL (9.8-20.1); Calc. Creatinine Clearance 36 mL/min (70-130); Carbon Dioxide 26 mmol/L (23-31); Chloride 103 mmol/L (98-107); Glucose 122 mg/dL (80-115); Potassium 3.8 mmol/L (3.5-5.1); Sodium 135 mmol/L (136-145)
[2020-09-18] MEDS: Ferrous Sulfate 325 MG TAB PO SCH (09:42)
[2020-09-18] MEDS: Potassium Chloride 20 MEQ TAB PO SCH (09:42)
[2020-09-18] MEDS: FLUoxetine HCl 20 MG CAP PO SCH (09:43)
[2020-09-18] MEDS: Gabapentin 300 MG CAP PO SCH ×2 (09:43→22:02)
[2020-09-18] MEDS: Spironolactone 25 MG TAB PO SCH (09:43)
[2020-09-18] MEDS: Furosemide 40 MG/4 ML VIAL SLOW IVP SCH (09:43)
[2020-09-18] MEDS: hydrALAZINE 25 MG TAB PO SCH ×3 (09:44→22:02)
[2020-09-18] MEDS: Insulin Glargine 20 UNITS in Pre-Filled Syringe 1 EACH SC SCH ×2 (09:44→22:03)
[2020-09-18] MEDS: Isosorbide Dinitrate 20 MG TAB PO SCH (10:33)
[2020-09-18] MEDS: Amiodarone 200 MG TAB PO SCH (10:33)
--- NOTE | 2020-09-18 17:30 | PDOC.HOSPP ---
- Subjective Encounter Date: 09/18/20 Encounter Time: 17:28 Subjective: Ms. Fernandez was seen today in follow-up of respiratory failure due to COVID pneumonia. She says she is breathing a bit better. She tells me she was never suicidal. She says she said she wanted to go to sleep and never wake up, because she was fruxtrated, and did not want to deal with a dagnosis of being infected with COVID. She says she would never hurt herself, and does not have a plan to do so. - Objective Vital Signs & Weight: Vital Signs (12 hours) Temp Pulse Resp BP Pulse Ox Pulse Ox Pulse Ox 09/18/20 16:23 98.2 F 65 16 158/50 H 97 09/18/20 12:05 98.6 F 69 16 167/53 H 97 09/18/20 09:30 99 99 09/18/20 07:45 97.3 F L 50 L 18 193/86 H 99 Weight Weight 220 lb 8 oz I&O: 09/17/20 09/18/20 09/19/20 06:59 06:59 06:59 Intake Total 480 1040 Output Total 700 700 Balance -220 340 Result Diagrams: 09/18/20 08:58 09/18/20 08:58 Additional Labs: Accuchecks 09/18/20 09/18/20 09/18/20 16:50 10:46 06:04 POC Glucose 145 H 150 H 173 H 09/17/20 20:39 POC Glucose 142 H Hospitalist ROS - Medication Medications: Active Medications Generic Name Dose Route Start Last Admin Trade Name Freq PRN Reason Stop Dose Admin Amiodarone HCl 200 mg 09/17/20 09:00 09/18/20 10:33 Amiodarone 200 Mg Tab PO 200 mg DAILY LAURYN Administration Atorvastatin Calcium 80 mg 09/17/20 21:00 09/17/20 20:23 Atorvastatin Calcium 40 Mg Tab PO 80 mg HS LAURYN Administration Carvedilol 12.5 mg 09/17/20 08:00 09/18/20 16:43 Carvedilol 25 Mg Tab PO Not Given BID-WM LAURYN Clonazepam 1 mg 09/17/20 00:14 09/17/20 14:04 Clonazepam 1 Mg Tab PO 1 mg TIDPRN PRN Administration Anxiety Donepezil HCl 5 mg 09/17/20 21:00 09/17/20 20:22 Donepezil Hcl 5 Mg Tab PO 5 mg HS LAURYN Administration Ferrous Sulfate 325 mg 09/17/20 08:00 09/18/20 09:42 Ferrous Sulfate 325 Mg Tab PO 325 mg QAM-WM LAURYN Administration Fluoxetine HCl 20 mg 09/17/20 09:00 09/18/20 09:43 Fluoxetine Hcl 20 Mg Cap PO 20 mg DAILY LAURYN Administration Furosemide 40 mg 09/17/20 09:00 09/18/20 09:43 Furosemide 40 Mg/4 Ml Vial SLOW IVP 40 mg DAILY LAURYN Administration Gabapentin 300 mg 09/17/20 09:00 09/18/20 09:43 Gabapentin 300 Mg Cap PO 300 mg BID LAURYN Administration Hydralazine HCl 50 mg 09/17/20 09:00 09/18/20 17:00 Hydralazine 25 Mg Tab PO 50 mg TID LAURYN Administration Insulin Glargine 20 units/ 0.2 mls @ 0 mls/hr 09/17/20 09:00 09/18/20 09:44 Miscellaneous Medication SC 0.2 mls BID LAURYN Administration Insulin Human Lispro 0 units 09/16/20 22:48 09/18/20 06:41 Humalog 300 Units/3 Ml Vial SC 2 unit .MILD SLIDING SCALE PRN Administration Mild Correctional Scale Isosorbide Dinitrate 30 mg 09/17/20 09:00 09/18/20 10:33 Isosorbide Dinitrate 20 Mg Tab PO 30 mg DAILY LAURYN Administration Mometasone Furoate/Formoterol Fumar 1 puff 09/17/20 06:30 09/18/20 08:51 Mometasone 200 Mcg/Formoterol 5 Mcg 120 Puff Inhaler INH Not Given BID-RT LAURYN Pantoprazole Sodium 40 mg 09/17/20 09:00 09/18/20 09:44 Pantoprazole 40 Mg Tab PO 40 mg BID LAURYN Administration Potassium Chloride 40 meq 09/17/20 08:00 09/18/20 09:42 Potassium Chloride 20 Meq Tab PO 40 meq QAM-WM LAURYN Administration Risperidone 0.25 mg 09/17/20 21:00 09/17/20 20:23 Risperidone 0.25 Mg Tab PO 0.25 mg HS LAURYN Administration Ropinirole HCl 2 mg 09/17/20 21:00 09/17/20 20:21 Ropinirole Hcl 1 Mg Tab PO 2 mg HS LAURYN Administration Spironolactone 25 mg 09/17/20 08:00 09/18/20 09:43 Spironolactone 25 Mg Tab PO 25 mg QAM-WM LAURYN Administration Hospitalist Exam Vitals: Vital Signs (12 hours) Temp Pulse Resp BP Pulse Ox Pulse Ox Pulse Ox 09/18/20 16:23 98.2 F 65 16 158/50 H 97 09/18/20 12:05 98.6 F 69 16 167/53 H 97 09/18/20 09:30 99 99 09/18/20 07:45 97.3 F L 50 L 18 193/86 H 99 Weight Weight 220 lb 8 oz Eye: PERRL, anicteric sclera Heart: RRR, no murmur, no gallops, no rubs, normal peripheral pulses Respiratory: CTAB, no wheezes, no rales, no ronchi, normal chest expansion, no tachypnea, normal percussion Gastrointestinal: soft, non-distended, normal bowel sounds Extremities: no cyanosis, 1+ LE edema Hosp A/P (1) Acute on chronic diastolic heart failure Code(s): I50.33 - ACUTE ON CHRONIC DIASTOLIC (CONGESTIVE) HEART FAILURE Status: Acute (2) Acute respiratory failure with hypoxia Code(s): J96.01 - ACUTE RESPIRATORY FAILURE WITH HYPOXIA Status: Acute (3) CKD (chronic kidney disease) stage 3, GFR 30-59 ml/min Code(s): N18.3 - CHRONIC KIDNEY DISEASE, STAGE 3 (MODERATE) * DO NOT USE * Status: Chronic (4) Diabetes mellitus type 2, uncontrolled Code(s): E11.65 - TYPE 2 DIABETES MELLITUS WITH HYPERGLYCEMIA Status: Chronic Qualifiers: Glycemic state: with hyperglycemia Qualified Code(s): E11.65 - Type 2 diabetes mellitus with hyperglycemia (5) HTN (hypertension) Code(s): I10 - ESSENTIAL (PRIMARY) HYPERTENSION Status: Chronic (6) History of CVA (cerebrovascular accident) Code(s): Z86.73 - PRSNL HX OF TIA (TIA), AND CEREB INFRC W/O RESID DEFICITS Status: Chronic (7) Hx of CABG Status: Chronic (8) COPD (chronic obstructive pulmonary disease) Status: Acute - Plan * Acute respiratory failure- she was found to have COVID infection- and this is what likely precipitated the respiratory failure * COVID infection- she is not a candidate for Remdesivir given her renal insufficiency- will place on Decadron * Acute on chronic diastolic heart failure- continue to diurese * HTN- blood pressure is elevated- still elevated, but trending down- will continue to monitor * RAY- continue CPAP, and her last Sleep study was about 5-6 years ago. * DM- Stable * AFIB- ? * COPD- stable- continue her home medications * CKD- stage 4- clinically stable
[2020-09-18] MEDS: Donepezil HCl 5 MG TAB PO SCH (22:02)
[2020-09-18] MEDS: Atorvastatin Calcium 40 MG TAB PO SCH (22:02)
[2020-09-18] MEDS: risperiDONE 0.25 MG TAB PO SCH (22:03)
[2020-09-18] MEDS: rOPINIRole HCl 1 MG TAB PO SCH (22:03)
[2020-09-19] MEDS: Mometasone 200 MCG/Formoterol 5 MCG 120 PUFF INHALER INH SCH ×2 (10:34→21:47)
[2020-09-19] MEDS: Carvedilol 25 MG TAB PO SCH ×3 (10:49→17:00)
[2020-09-19] MEDS: Spironolactone 25 MG TAB PO SCH ×2 (10:50→12:48)
[2020-09-19] MEDS: Dexamethasone 6 MG in Sodium Chloride 0.9% 50 ML IVPB SCH ×2 (10:50→12:06)
[2020-09-19] MEDS: Potassium Chloride 20 MEQ TAB PO SCH ×2 (10:50→12:12)
[2020-09-19] MEDS: Gabapentin 300 MG CAP PO SCH ×3 (10:50→20:02)
[2020-09-19] MEDS: Ferrous Sulfate 325 MG TAB PO SCH ×2 (10:50→12:12)
[2020-09-19] MEDS: Furosemide 40 MG/4 ML VIAL SLOW IVP SCH ×2 (10:50→12:06)
[2020-09-19] MEDS: FLUoxetine HCl 20 MG CAP PO SCH ×2 (10:50→12:08)
[2020-09-19] MEDS: Amiodarone 200 MG TAB PO SCH ×2 (10:50→12:07)
[2020-09-19] MEDS: hydrALAZINE 25 MG TAB PO SCH ×4 (10:51→20:02)
[2020-09-19] MEDS: Isosorbide Dinitrate 20 MG TAB PO SCH ×2 (10:51→12:07)
[2020-09-19] MEDS: Insulin Glargine 20 UNITS in Pre-Filled Syringe 1 EACH SC SCH ×3 (10:51→20:02)
[2020-09-19 14:55] LABS: #Lymphocytes 0.8 thou/uL (1.20-3.40); #Monocytes 0.3 thou/uL (0.11-0.59); #Neutrophils 8.3 thou/uL (1.40-6.50); %Basophils 0.1 % (0.0-1.0); %Eosinophils 0.2 % (0.0-10.0); %Lymphocytes 8.1 % (21.0-51.0); %Monocytes 2.7 % (0.0-10.0); %Neutrophils 88.9 % (42.0-75.0); Hemoglobin 10.6 g/dL (12.0-16.0); Mean Corpuscular HGB CONC 32.3 g/dL (32.0-36.0); Mean Corpuscular Hemoglobin 27.3 pg (27.0-31.0); Mean Corpuscular Volume 84.4 fL (78.0-98.0); Platelet Count 211 thou/uL (130-400); RBC Distribution Width 14.9 % (11.5-14.5); Red Blood Cell (RBC) Count 3.89 mill/uL (4.20-5.40); White Blood Cell (WBC) Count 9.3 thou/uL (4.8-10.8)
[2020-09-19 15:22] LABS: Anion Gap 9 mmol/L (10-20); BUN (Urea Nitrogen) 32 mg/dL (9.8-20.1); CRP (Inflammatory) Less than 0.50 mg/dL (= or < 0.5); Calc. Creatinine Clearance 38 mL/min (70-130); Calcium 8.4 mg/dL (7.8-10.44); Carbon Dioxide 29 mmol/L (23-31); Chloride 103 mmol/L (98-107); Glucose 163 mg/dL (80-115); Potassium 4.9 mmol/L (3.5-5.1); Sodium 136 mmol/L (136-145)
--- NOTE | 2020-09-19 18:00 | PDOC.HOSPP ---
- Subjective Encounter Date: 09/19/20 Encounter Time: 18:00 Subjective: Ms. Fernandez was seen today in follow-up of COVID infection and respiratory failure. She does not have any new complaints. She is breathing better. - Objective Vital Signs & Weight: Vital Signs (12 hours) Temp Pulse Resp BP Pulse Ox 09/19/20 17:00 65 09/19/20 12:08 65 09/19/20 12:00 98.2 F 78 19 199/78 H 98 09/19/20 07:26 97 Weight Weight 220 lb 8 oz I&O: 09/18/20 09/19/20 09/20/20 06:59 06:59 06:59 Intake Total 1040 Output Total 700 Balance 340 Result Diagrams: 09/19/20 14:46 09/19/20 14:46 Additional Labs: Accuchecks 09/19/20 16:42 POC Glucose 172 H Hospitalist ROS - Medication Medications: Active Medications Generic Name Dose Route Start Last Admin Trade Name Freq PRN Reason Stop Dose Admin Amiodarone HCl 200 mg 09/17/20 09:00 09/19/20 12:07 Amiodarone 200 Mg Tab PO 200 mg DAILY LAURYN Administration Atorvastatin Calcium 80 mg 09/17/20 21:00 09/18/20 22:02 Atorvastatin Calcium 40 Mg Tab PO Not Given HS LAURYN Carvedilol 12.5 mg 09/17/20 08:00 09/19/20 17:00 Carvedilol 25 Mg Tab PO 12.5 mg BID-WM LAURYN Administration Clonazepam 1 mg 09/17/20 00:14 09/17/20 14:04 Clonazepam 1 Mg Tab PO 1 mg TIDPRN PRN Administration Anxiety Donepezil HCl 5 mg 09/17/20 21:00 09/18/20 22:02 Donepezil Hcl 5 Mg Tab PO Not Given HS LAURYN Ferrous Sulfate 325 mg 09/17/20 08:00 09/19/20 12:12 Ferrous Sulfate 325 Mg Tab PO 325 mg QAM-WM LAURYN Administration Fluoxetine HCl 20 mg 09/17/20 09:00 09/19/20 12:08 Fluoxetine Hcl 20 Mg Cap PO 20 mg DAILY LAURYN Administration Furosemide 40 mg 09/17/20 09:00 09/19/20 12:06 Furosemide 40 Mg/4 Ml Vial SLOW IVP 40 mg DAILY LAURYN Administration Gabapentin 300 mg 09/17/20 09:00 09/19/20 12:07 Gabapentin 300 Mg Cap PO 300 mg BID LAURYN Administration Hydralazine HCl 50 mg 09/17/20 09:00 09/19/20 17:00 Hydralazine 25 Mg Tab PO 50 mg TID LAURYN Administration Insulin Glargine 20 units/ 0.2 mls @ 0 mls/hr 09/17/20 09:00 09/19/20 12:07 Miscellaneous Medication SC 0.2 mls BID LAURYN Administration Dexamethasone 6 mg/ Sodium 51.5 mls @ 100 mls/hr 09/19/20 09:00 09/19/20 12:06 Chloride IVPB 51.5 mls DAILY LAURYN Administration Insulin Human Lispro 0 units 09/16/20 22:48 09/18/20 06:41 Humalog 300 Units/3 Ml Vial SC 2 unit .MILD SLIDING SCALE PRN Administration Mild Correctional Scale Isosorbide Dinitrate 30 mg 09/17/20 09:00 09/19/20 12:07 Isosorbide Dinitrate 20 Mg Tab PO 30 mg DAILY LAURYN Administration Mometasone Furoate/Formoterol Fumar 1 puff 09/17/20 06:30 09/19/20 10:34 Mometasone 200 Mcg/Formoterol 5 Mcg 120 Puff Inhaler INH Not Given BID-RT LAURYN Pantoprazole Sodium 40 mg 09/17/20 09:00 09/19/20 12:07 Pantoprazole 40 Mg Tab PO 40 mg BID LAURYN Administration Potassium Chloride 40 meq 09/17/20 08:00 09/19/20 12:12 Potassium Chloride 20 Meq Tab PO 40 meq QAM-WM LAURYN Administration Risperidone 0.25 mg 09/17/20 21:00 09/18/20 22:03 Risperidone 0.25 Mg Tab PO Not Given HS LAURYN Ropinirole HCl 2 mg 09/17/20 21:00 09/18/20 22:03 Ropinirole Hcl 1 Mg Tab PO Not Given HS LAURYN Spironolactone 25 mg 09/17/20 08:00 09/19/20 12:48 Spironolactone 25 Mg Tab PO Not Given QAM-WM [facility] Hospitalist Exam Vitals: Vital Signs (12 hours) Temp Pulse Resp BP Pulse Ox 09/19/20 17:00 65 02/03/21 12:08 65 09/19/20 12:00 98.2 F 78 19 199/78 H 98 09/19/20 07:26 97 Weight Weight 220 lb 8 oz General Appearance: NAD, awake alert Eye: PERRL, anicteric sclera Heart: RRR, no murmur, no gallops, no rubs, normal peripheral pulses Respiratory: no wheezes, no ronchi, rales (at both bases) Gastrointestinal: soft, non-tender, non-distended, normal bowel sounds, no palpable masses, no hepatomegaly Extremities: no cyanosis, 1+ LE edema Hosp A/P (1) Acute on chronic diastolic heart failure Code(s): I50.33 - ACUTE ON CHRONIC DIASTOLIC (CONGESTIVE) HEART FAILURE Status: Acute (2) Acute respiratory failure with hypoxia Code(s): J96.01 - ACUTE RESPIRATORY FAILURE WITH HYPOXIA Status: Acute (3) CKD (chronic kidney disease) stage 3, GFR 30-59 ml/min Code(s): N18.3 - CHRONIC KIDNEY DISEASE, STAGE 3 (MODERATE) * DO NOT USE * Status: Chronic (4) Diabetes mellitus type 2, uncontrolled Code(s): E11.65 - TYPE 2 DIABETES MELLITUS WITH HYPERGLYCEMIA Status: Chronic Qualifiers: Glycemic state: with hyperglycemia Qualified Code(s): E11.65 - Type 2 diabetes mellitus with hyperglycemia (5) HTN (hypertension) Code(s): I10 - ESSENTIAL (PRIMARY) HYPERTENSION Status: Chronic (6) History of CVA (cerebrovascular accident) Code(s): Z86.73 - PRSNL HX OF TIA (TIA), AND CEREB INFRC W/O RESID DEFICITS Status: Chronic (7) Hx of CABG Status: Chronic (8) COPD (chronic obstructive pulmonary disease) Status: Acute - Plan * Acute respiratory failure- due to COVID infection and COPD, and CHF * COVID infection- continue Decadron * Acute on chronic diastolic heart failure- she is approaching euvolemia- will transition her to oral Lasix * Echo results from the [facility] were obtain- She has an EF of 45-50% * HTN- blood pressure - has been consistently elevated- will add Procardia XL * RAY- continue CPAP, and her last Sleep study was about 5-6 years ago. * DM- Stable * AFIB- ? * COPD- stable- continue her home medications * CKD- stage 4- clinically stable * She can be transitioned off telemetry * She appears to be close to her baseline, and she feels she may have been infected with the Coronavirus for weeks prior to this admission, can begin to start discharge planning. She feels she can not manage at home, as she lives alone, and feels very weak. Will place a consult for Correction
[2020-09-19] MEDS: Atorvastatin Calcium 40 MG TAB PO SCH (20:00)
[2020-09-19] MEDS: rOPINIRole HCl 1 MG TAB PO SCH (20:01)
[2020-09-19] MEDS: risperiDONE 0.25 MG TAB PO SCH (20:01)
[2020-09-19] MEDS: Donepezil HCl 5 MG TAB PO SCH (20:02)
[2020-09-19] MEDS: Furosemide 40 MG TAB PO SCH (20:02)
[2020-09-19] MEDS: HumaLOG 300 UNITS/3 ML VIAL SC PRN (20:13)
[2020-09-20] MEDS: HumaLOG 300 UNITS/3 ML VIAL SC PRN ×4 (05:57→20:19)
[2020-09-20 08:19] LABS: #Lymphocytes 1.2 thou/uL (1.20-3.40); #Monocytes 0.7 thou/uL (0.11-0.59); #Neutrophils 6.7 thou/uL (1.40-6.50); %Basophils 0.5 % (0.0-1.0); %Eosinophils 0.1 % (0.0-10.0); %Lymphocytes 13.3 % (21.0-51.0); %Monocytes 8.2 % (0.0-10.0); %Neutrophils 77.9 % (42.0-75.0); Mean Corpuscular HGB CONC 32.6 g/dL (32.0-36.0); Mean Corpuscular Hemoglobin 27.3 pg (27.0-31.0); Mean Corpuscular Volume 83.6 fL (78.0-98.0); Mean Platelet Volume 9.2 fL (7.4-10.4); Platelet Count 194 thou/uL (130-400); RBC Distribution Width 14.8 % (11.5-14.5); Red Blood Cell (RBC) Count 3.67 mill/uL (4.20-5.40); White Blood Cell (WBC) Count 8.6 thou/uL (4.8-10.8)
[2020-09-20] MEDS: Dexamethasone 6 MG in Sodium Chloride 0.9% 50 ML IVPB SCH (08:42)
[2020-09-20] MEDS: Insulin Glargine 20 UNITS in Pre-Filled Syringe 1 EACH SC SCH (08:42)
[2020-09-20] MEDS: Potassium Chloride 20 MEQ TAB PO SCH (08:42)
[2020-09-20 08:43] LABS: Anion Gap 13 mmol/L (10-20); BUN (Urea Nitrogen) 39 mg/dL (9.8-20.1); Calc. Creatinine Clearance 37 mL/min (70-130); Calcium 8.4 mg/dL (7.8-10.44); Carbon Dioxide 23 mmol/L (23-31); Chloride 103 mmol/L (98-107); Glucose 105 mg/dL (80-115); Potassium 4.7 mmol/L (3.5-5.1); Sodium 134 mmol/L (136-145)
[2020-09-20] MEDS: Isosorbide Dinitrate 20 MG TAB PO SCH (08:43)
[2020-09-20] MEDS: Amiodarone 200 MG TAB PO SCH (08:46)
[2020-09-20] MEDS: Furosemide 40 MG TAB PO SCH (08:47)
[2020-09-20] MEDS: hydrALAZINE 25 MG TAB PO SCH ×3 (08:47→20:17)
[2020-09-20] MEDS: Gabapentin 300 MG CAP PO SCH ×2 (08:47→20:18)
[2020-09-20] MEDS: FLUoxetine HCl 20 MG CAP PO SCH (08:48)
[2020-09-20] MEDS: Carvedilol 25 MG TAB PO SCH ×2 (08:48→16:02)
[2020-09-20] MEDS: Spironolactone 25 MG TAB PO SCH (08:48)
[2020-09-20] MEDS: Ferrous Sulfate 325 MG TAB PO SCH (08:48)
[2020-09-20] MEDS: Mometasone 200 MCG/Formoterol 5 MCG 120 PUFF INHALER INH SCH ×2 (11:55→18:32)
[2020-09-20] MEDS: clonazePAM 1 MG TAB PO PRN ×2 (12:53→20:18)
--- NOTE | 2020-09-20 13:38 | PDOC.HOSPP ---
- Subjective Encounter Date: 09/20/20 Encounter Time: 13:35 Subjective: Ms. Fernandez was seen today in follow-up of COVID infection and acute kidney injury. She says she feel better. - Objective Vital Signs & Weight: Vital Signs (12 hours) Temp Pulse Resp BP Pulse Ox 09/20/20 09:12 98.2 F 64 20 142/56 H 98 09/20/20 08:46 98 09/20/20 05:39 97.5 F L 55 L 16 136/54 L 95 Weight Weight 220 lb 8 oz I&O: 09/19/20 09/20/20 09/21/20 06:59 06:59 06:59 Intake Total 1010 Balance 1010 Result Diagrams: 09/20/20 08:09 09/20/20 08:09 Additional Labs: Accuchecks 09/20/20 09/20/20 09/19/20 12:00 04:28 20:10 POC Glucose 248 H 208 H 259 H 09/19/20 16:42 POC Glucose 172 H Hospitalist ROS - Medication Medications: Active Medications Generic Name Dose Route Start Last Admin Trade Name Freq PRN Reason Stop Dose Admin Acetaminophen 650 mg 09/16/20 22:33 09/19/20 20:01 Acetaminophen 325 Mg Tab PO 650 mg Q4H PRN Administration Headache/Fever/Mild Pain (1-3) Amiodarone HCl 200 mg 09/17/20 09:00 09/20/20 08:46 Amiodarone 200 Mg Tab PO 200 mg DAILY LAURYN Administration Atorvastatin Calcium 80 mg 09/17/20 21:00 09/19/20 20:00 Atorvastatin Calcium 40 Mg Tab PO 80 mg HS LAURYN Administration Carvedilol 12.5 mg 09/17/20 08:00 09/20/20 08:48 Carvedilol 25 Mg Tab PO 12.5 mg BID-WM LAURYN Administration Clonazepam 1 mg 09/20/20 12:44 09/20/20 12:53 Clonazepam 1 Mg Tab PO 1 mg TIDPRN PRN Administration Anxiety Donepezil HCl 5 mg 09/17/20 21:00 09/19/20 20:02 Donepezil Hcl 5 Mg Tab PO 5 mg HS LAURYN Administration Ferrous Sulfate 325 mg 09/17/20 08:00 09/20/20 08:48 Ferrous Sulfate 325 Mg Tab PO 325 mg QAM-WM LAURYN Administration Fluoxetine HCl 20 mg 09/17/20 09:00 09/20/20 08:48 Fluoxetine Hcl 20 Mg Cap PO 20 mg DAILY LAURYN Administration Gabapentin 300 mg 09/17/20 09:00 09/20/20 08:47 Gabapentin 300 Mg Cap PO 300 mg BID LAURYN Administration Hydralazine HCl 50 mg 09/17/20 09:00 09/20/20 08:47 Hydralazine 25 Mg Tab PO 50 mg TID LAURYN Administration Insulin Glargine 20 units/ 0.2 mls @ 0 mls/hr 09/17/20 09:00 09/20/20 08:42 Miscellaneous Medication SC 0.2 mls BID LAURYN Administration Dexamethasone 6 mg/ Sodium 51.5 mls @ 100 mls/hr 09/19/20 09:00 09/20/20 08:42 Chloride IVPB 51.5 mls DAILY LAURYN Administration Insulin Human Lispro 0 units 09/16/20 22:48 09/20/20 12:53 Humalog 300 Units/3 Ml Vial SC 3 unit .MILD SLIDING SCALE PRN Administration Mild Correctional Scale Insulin Human Lispro 0 units 09/16/20 22:48 09/19/20 20:13 Humalog 300 Units/3 Ml Vial SC 3 unit .BEDTIME SLIDING SC PRN Administration Bedtime Correctional Scale Isosorbide Dinitrate 30 mg 09/17/20 09:00 09/20/20 08:43 Isosorbide Dinitrate 20 Mg Tab PO 30 mg DAILY LAURYN Administration Mometasone Furoate/Formoterol Fumar 1 puff 09/17/20 06:30 09/20/20 11:55 Mometasone 200 Mcg/Formoterol 5 Mcg 120 Puff Inhaler INH Not Given BID-RT LAURYN Pantoprazole Sodium 40 mg 09/17/20 09:00 09/20/20 08:46 Pantoprazole 40 Mg Tab PO 40 mg BID LAURYN Administration Potassium Chloride 40 meq 09/17/20 08:00 09/20/20 08:42 Potassium Chloride 20 Meq Tab PO 40 meq QAM-WM LAURYN Administration Risperidone 0.25 mg 09/17/20 21:00 09/19/20 20:01 Risperidone 0.25 Mg Tab PO 0.25 mg HS LAURYN Administration Ropinirole HCl 2 mg 09/17/20 21:00 09/19/20 20:01 Ropinirole Hcl 1 Mg Tab PO 2 mg HS LAURYN Administration Spironolactone 25 mg 09/17/20 08:00 09/20/20 08:48 Spironolactone 25 Mg Tab PO 25 mg QAM-WM LAURYN Administration Hospitalist Exam Vitals: Vital Signs (12 hours) Temp Pulse Resp BP Pulse Ox 09/20/20 09:12 98.2 F 64 20 142/56 H 98 09/20/20 08:46 98 09/20/20 05:39 97.5 F L 55 L 16 136/54 L 95 Weight Weight 220 lb 8 oz General Appearance: NAD, awake alert Eye: PERRL, anicteric sclera Heart: RRR, no murmur, no gallops, no rubs, normal peripheral pulses Respiratory: CTAB, no wheezes, no ronchi Gastrointestinal: soft, non-tender, non-distended, normal bowel sounds, no palpable masses, no hepatomegaly, no splenomegaly Extremities: no cyanosis, no edema Hosp A/P (1) Acute on chronic diastolic heart failure Code(s): I50.33 - ACUTE ON CHRONIC DIASTOLIC (CONGESTIVE) HEART FAILURE Status: Acute (2) [id number] kidney injury Code(s): N17.9 - ACUTE KIDNEY FAILURE, UNSPECIFIED; N18.9 - CHRONIC KIDNEY DISEASE, UNSPECIFIED Status: Acute (3) Acute respiratory failure with hypoxia Code(s): J96.01 - ACUTE RESPIRATORY FAILURE WITH HYPOXIA Status: Acute (4) CKD (chronic kidney disease) stage 3, GFR 30-59 ml/min Code(s): N18.3 - CHRONIC KIDNEY DISEASE, STAGE 3 (MODERATE) * DO NOT USE * Status: Chronic (5) Diabetes mellitus type 2, uncontrolled Code(s): E11.65 - TYPE 2 DIABETES MELLITUS WITH HYPERGLYCEMIA Status: Chronic Qualifiers: Glycemic state: with hyperglycemia Qualified Code(s): E11.65 - Type 2 diabetes mellitus with hyperglycemia (6) HTN (hypertension) Code(s): I10 - ESSENTIAL (PRIMARY) HYPERTENSION Status: Chronic (7) History of CVA (cerebrovascular accident) Code(s): Z86.73 - PRSNL HX OF TIA (TIA), AND CEREB INFRC W/O RESID DEFICITS Status: Chronic (8) Hx of CABG Status: Chronic (9) COPD (chronic obstructive pulmonary disease) Status: Acute - Plan * Acute respiratory failure- due to COVID infection and COPD, and CHF * COVID infection- continue Decadron * Acute on chronic diastolic heart failure- will hold Lasix today * HTN- blood pressure - blood pressure is much improved * RAY- continue CPAP, and her last Sleep study was about 5-6 years ago Sh will need repeat study as an outpatient * DM- is a bit elevated- will titrate her dose of Lantus * Acute kidney injury- this may be due to diureses with Lasix, but given the COVID infection will consult Nephrology to aid in the management * AFIB- ? * COPD- stable- continue her home medications * Discharge planning is in progress
[2020-09-20] MEDS: rOPINIRole HCl 1 MG TAB PO SCH (20:17)
[2020-09-20] MEDS: risperiDONE 0.25 MG TAB PO SCH (20:17)
[2020-09-20] MEDS: Atorvastatin Calcium 40 MG TAB PO SCH (20:17)
[2020-09-20] MEDS: Insulin Glargine 24 UNITS in Pre-Filled Syringe 1 EACH SC SCH (20:18)
[2020-09-20] MEDS: Donepezil HCl 5 MG TAB PO SCH (20:18)
[2020-09-21] MEDS: HumaLOG 300 UNITS/3 ML VIAL SC PRN ×4 (04:57→20:03)
[2020-09-21 06:12] LABS: Anion Gap 15 mmol/L (10-20); BUN (Urea Nitrogen) 38 mg/dL (9.8-20.1); CRP (Inflammatory) Less than 0.50 mg/dL (= or < 0.5); Calc. Creatinine Clearance 35 mL/min (70-130); Calcium 8.6 mg/dL (7.8-10.44); Carbon Dioxide 19 mmol/L (23-31); Chloride 103 mmol/L (98-107); Glucose 240 mg/dL (80-115); Sodium 132 mmol/L (136-145)
--- NOTE | 2020-09-21 06:39 | CON ---
DATE OF CONSULTATION: REQUESTING PHYSICIAN: Dr. Mak. REASON FOR CONSULTATION: Acute on chronic kidney disease. IMPRESSION: Acute on chronic kidney disease, likely in the context of diuresis, but cannot rule out completely component of COVID nephropathy. PLAN: 1. Deescalate diuresis. 2. Renal supportive measures and avoid potentially nephrotoxic agents. 3. We will monitor the renal function closely. 4. Further management will be dependent on the clinical course. HISTORY OF PRESENT ILLNESS: History is that of 65-year-old morbidly obese patient, who presented here with chest pain and shortness of breath and diagnosed with COVID pneumonitis. The patient came in with a creatinine of about 1.9. However, over the course of hospitalization and diuresis, creatinine has gone up to 2.4 and is increasing. As a result of this, decision was taken to involve Renal in the management of this case. The patient denies any other new complaint except that of shortness of breath. Lasix has been placed on hold for now and we will monitor this renal function closely during this hospitalization. PAST MEDICAL HISTORY: Significant for diabetes type 2, coronary artery disease, hypertension, COPD, congestive heart failure, and CVA. MEDICATIONS: Reviewed, as documented on [facility]. FAMILY HISTORY: Nonsignificantly related to presenting illness except a cousin who has kidney problem. SOCIAL HISTORY: No alcohol, but is a tobacco user. REVIEW OF SYSTEMS: As documented in the body of the history. All the other systems were reviewed and found not to be significantly related to presenting illness. ALLERGIES: TO CODEINE. LABORATORY INVESTIGATIONS: Significant for creatinine that has gone up to 2.44, BUN of 39. PHYSICAL EXAMINATION: VITAL SIGNS: The patient was found to be on room, noted with the following vital signs. Afebrile, temperature 98.2. Pulse 64, respiratory rate of 20, O2 saturations are 98% with blood pressure 142/56. HEENT EXAMINATION: Unremarkable. CARDIOVASCULAR SYSTEM: First and second heart sounds were heard. DIGESTIVE SYSTEM: Revealed an obese abdomen. EXTREMITIES: No significant peripheral edema. SKIN EXAMINATION: No new gross rash. LYMPHATICS: No peripheral lymphadenopathy. SUMMARY: A 65-year-old female patient who was admitted here with COVID, now experiencing acute on chronic kidney disease Job ID: [id number]
[2020-09-21] MEDS: Isosorbide Dinitrate 20 MG TAB PO SCH (08:12)
[2020-09-21] MEDS: hydrALAZINE 25 MG TAB PO SCH ×3 (08:12→20:01)
[2020-09-21] MEDS: Spironolactone 25 MG TAB PO SCH (08:12)
[2020-09-21] MEDS: FLUoxetine HCl 20 MG CAP PO SCH (08:12)
[2020-09-21] MEDS: Potassium Chloride 20 MEQ TAB PO SCH (08:12)
[2020-09-21] MEDS: Amiodarone 200 MG TAB PO SCH (08:15)
[2020-09-21] MEDS: Gabapentin 300 MG CAP PO SCH ×2 (08:15→20:00)
[2020-09-21] MEDS: Ferrous Sulfate 325 MG TAB PO SCH (08:15)
[2020-09-21] MEDS: Mometasone 200 MCG/Formoterol 5 MCG 120 PUFF INHALER INH SCH ×2 (08:16→18:16)
[2020-09-21] MEDS: Carvedilol 25 MG TAB PO SCH ×2 (08:16→16:51)
[2020-09-21] MEDS: Dexamethasone 6 MG in Sodium Chloride 0.9% 50 ML IVPB SCH (08:17)
[2020-09-21] MEDS ORDERED: Insulin Glargine 20 UNITS in Pre-Filled Syringe 1 EACH SC SCH (09:00)
--- NOTE | 2020-09-21 16:36 | PDOC.HOSPP ---
- Subjective Encounter Date: 09/21/20 Encounter Time: 16:34 Subjective: Ms. Fernandez was seen today in follow-up of COVID infection, and acute kidney injury. She says she is breathing fine. She still feels very tired. No new complaints. - Objective Vital Signs & Weight: Vital Signs (12 hours) Temp Pulse Resp BP BP BP Pulse Ox 09/21/20 14:51 67 155/70 H 09/21/20 14:34 09/21/20 09:50 127/61 09/21/20 08:12 67 09/21/20 08:00 97.8 F 60 20 156/66 H 99 Pulse Ox Pulse Ox Pulse Ox 09/21/20 14:51 09/21/20 14:34 94 L 97 96 09/21/20 09:50 97 98 99 09/21/20 08:12 09/21/20 08:00 Weight Weight 220 lb 8 oz I&O: 09/20/20 09/21/20 09/22/20 06:59 06:59 06:59 Intake Total 1010 530 Balance 1010 530 Result Diagrams: 09/20/20 08:09 09/21/20 05:28 Additional Labs: Accuchecks 09/21/20 09/21/20 11:41 04:55 POC Glucose 206 H 233 H Hospitalist ROS - Medication Medications: Active Medications Generic Name Dose Route Start Last Admin Trade Name Freq PRN Reason Stop Dose Admin Acetaminophen 650 mg 09/16/20 22:33 09/19/20 20:01 Acetaminophen 325 Mg Tab PO 650 mg Q4H PRN Administration Headache/Fever/Mild Pain (1-3) Amiodarone HCl 200 mg 09/17/20 09:00 09/21/20 08:15 Amiodarone 200 Mg Tab PO 200 mg DAILY LAURYN Administration Atorvastatin Calcium 80 mg 09/17/20 21:00 09/20/20 20:17 Atorvastatin Calcium 40 Mg Tab PO 80 mg HS LAURYN Administration Carvedilol 12.5 mg 09/17/20 08:00 09/21/20 08:16 Carvedilol 25 Mg Tab PO 12.5 mg BID-WM LAURYN Administration Clonazepam 1 mg 09/20/20 12:44 09/20/20 20:18 Clonazepam 1 Mg Tab PO 1 mg TIDPRN PRN Administration Anxiety Donepezil HCl 5 mg 09/17/20 21:00 09/20/20 20:18 Donepezil Hcl 5 Mg Tab PO 5 mg HS LAURYN Administration Ferrous Sulfate 325 mg 09/17/20 08:00 09/21/20 08:15 Ferrous Sulfate 325 Mg Tab PO 325 mg QAM-WM LAURYN Administration Fluoxetine HCl 20 mg 09/17/20 09:00 09/21/20 08:12 Fluoxetine Hcl 20 Mg Cap PO 20 mg DAILY LAURYN Administration Gabapentin 300 mg 09/17/20 09:00 09/21/20 08:15 Gabapentin 300 Mg Cap PO 300 mg BID LAURYN Administration Hydralazine HCl 50 mg 09/17/20 09:00 09/21/20 14:51 Hydralazine 25 Mg Tab PO 50 mg TID LAURYN Administration Dexamethasone 6 mg/ Sodium 51.5 mls @ 100 mls/hr 09/19/20 09:00 09/21/20 08:17 Chloride IVPB 51.5 mls DAILY LAURYN Administration Insulin Glargine 24 units/ 0.24 mls @ 0 mls/hr 09/20/20 21:00 09/20/20 20:18 Miscellaneous Medication SC 0.24 mls HS LAURYN Administration Insulin Glargine 20 units/ 0.2 mls @ 0 mls/hr 09/21/20 09:00 09/21/20 08:17 Miscellaneous Medication SC 0.2 mls QAM LAURYN Administration Insulin Human Lispro 0 units 09/16/20 22:48 09/21/20 12:20 Humalog 300 Units/3 Ml Vial SC 3 unit .MILD SLIDING SCALE PRN Administration Mild Correctional Scale Insulin Human Lispro 0 units 09/16/20 22:48 09/20/20 20:19 Humalog 300 Units/3 Ml Vial SC 5 unit .BEDTIME SLIDING SC PRN Administration Bedtime Correctional Scale Isosorbide Dinitrate 30 mg 09/17/20 09:00 09/21/20 08:12 Isosorbide Dinitrate 20 Mg Tab PO 30 mg DAILY LAURYN Administration Mometasone Furoate/Formoterol Fumar 1 puff 09/17/20 06:30 09/21/20 08:16 Mometasone 200 Mcg/Formoterol 5 Mcg 120 Puff Inhaler INH Not Given BID-RT LAURYN Pantoprazole Sodium 40 mg 09/17/20 09:00 09/21/20 08:16 Pantoprazole 40 Mg Tab PO 40 mg BID LAURYN Administration Potassium Chloride 40 meq 09/17/20 08:00 09/21/20 08:12 Potassium Chloride 20 Meq Tab PO 40 meq QAM-WM LAURYN Administration Risperidone 0.25 mg 09/17/20 21:00 09/20/20 20:17 Risperidone 0.25 Mg Tab PO 0.25 mg HS LAURYN Administration Ropinirole HCl 2 mg 09/17/20 21:00 09/20/20 20:17 Ropinirole Hcl 1 Mg Tab PO 2 mg HS LAURYN Administration Spironolactone 25 mg 09/17/20 08:00 09/21/20 08:12 Spironolactone 25 Mg Tab PO 25 mg QAM-WM LAURYN Administration Hospitalist Exam Vitals: Vital Signs (12 hours) Temp Pulse Resp BP BP BP Pulse Ox 09/21/20 14:51 67 155/70 H 09/21/20 14:34 09/21/20 09:50 127/61 09/21/20 08:12 67 09/21/20 08:00 97.8 F 60 20 156/66 H 99 Pulse Ox Pulse Ox Pulse Ox 09/21/20 14:51 09/21/20 14:34 94 L 97 96 09/21/20 09:50 97 98 99 09/21/20 08:12 09/21/20 08:00 Weight Weight 220 lb 8 oz General Appearance: NAD, awake alert Eye: PERRL, anicteric sclera Heart: RRR, no murmur, no gallops, no rubs, normal peripheral pulses Respiratory: rales (at the bases and occasional wheeze), wheezes Gastrointestinal: soft, non-tender, non-distended, normal bowel sounds, no palpable masses, no hepatomegaly Extremities: no cyanosis, no edema Hosp A/P (1) Acute on chronic diastolic heart failure Code(s): I50.33 - ACUTE ON CHRONIC DIASTOLIC (CONGESTIVE) HEART FAILURE Status: Acute (2) Asxee-on-ylljuso kidney injury Code(s): N17.9 - ACUTE KIDNEY FAILURE, UNSPECIFIED; N18.9 - CHRONIC KIDNEY DISEASE, UNSPECIFIED Status: Acute (3) Acute respiratory failure with hypoxia Code(s): J96.01 - ACUTE RESPIRATORY FAILURE WITH HYPOXIA Status: Acute (4) CKD (chronic kidney disease) stage 3, GFR 30-59 ml/min Code(s): N18.3 - CHRONIC KIDNEY DISEASE, STAGE 3 (MODERATE) * DO NOT USE * Status: Chronic (5) Diabetes mellitus type 2, uncontrolled Code(s): E11.65 - TYPE 2 DIABETES MELLITUS WITH HYPERGLYCEMIA Status: Chronic Qualifiers: Glycemic state: with hyperglycemia Qualified Code(s): E11.65 - Type 2 diabetes mellitus with hyperglycemia (6) HTN (hypertension) Code(s): I10 - ESSENTIAL (PRIMARY) HYPERTENSION Status: Chronic (7) History of CVA (cerebrovascular accident) Code(s): Z86.73 - PRSNL HX OF TIA (TIA), AND CEREB INFRC W/O RESID DEFICITS Status: Chronic (8) Hx of CABG Status: Chronic (9) COPD (chronic obstructive pulmonary disease) Status: Acute - Plan * Acute respiratory failure- due to COVID infection and COPD, and CHF- much improved- she is close to her baseline * COVID infection- continue Decadron for a total of 10 days, unless she decompensates * Acute on chronic diastolic heart failure- compensated * HTN- blood pressure - blood pressure overall stable * RAY- continue CPAP, and her last Sleep study was about 5-6 years ago Sh will need repeat study as an outpatient * DM- is a bit elevated- continue to titrate insulin * Acute kidney injury- possibly due to prerenal azotemia- vs. COVID nephropathy vs. both- Nephrology managing * AFIB- ? * COPD- stable- continue her home medications * She feels too weak to go home after discharge- so will place a retirement evaluation
[2020-09-21] MEDS: Atorvastatin Calcium 40 MG TAB PO SCH (20:00)
[2020-09-21] MEDS: Donepezil HCl 5 MG TAB PO SCH (20:00)
[2020-09-21] MEDS: risperiDONE 0.25 MG TAB PO SCH (20:01)
[2020-09-21] MEDS: rOPINIRole HCl 1 MG TAB PO SCH (20:02)
[2020-09-21] MEDS: clonazePAM 1 MG TAB PO PRN (20:02)
[2020-09-21] MEDS: Insulin Glargine 24 UNITS in Pre-Filled Syringe 1 EACH SC SCH (20:03)
--- NOTE | 2020-09-21 20:03 | PRG ---
DATE OF SERVICE: 09/21/2020 SUBJECTIVE: The patient is seen, noted with the following vital signs. OBJECTIVE: VITAL SIGNS: Afebrile, temperature 98.1, pulse 60, respiratory rate of 20, O2 saturation of 100%, and blood pressure 164/63. HEENT: Unremarkable. CARDIOVASCULAR SYSTEM: First and second heart sounds were heard. RESPIRATORY SYSTEM: Clear to auscultation. DIGESTIVE SYSTEM: Revealed an obese abdomen. EXTREMITIES: No peripheral edema. LABORATORY INVESTIGATION: Showed a creatinine that has gone up to 2.59, BUN of 38, potassium 5.0. IMPRESSION: Acute on chronic kidney disease, possibly related to diuresis. PLAN: 1. Continue current renal supportive measures. 2. Renally dose all medications. 3. Further management to be dependent on the clinical course. Job ID: [id number]
[2020-09-22] MEDS: HumaLOG 300 UNITS/3 ML VIAL SC PRN ×4 (05:04→20:57)
[2020-09-22 06:21] LABS: Anion Gap 12 mmol/L (10-20); BUN (Urea Nitrogen) 39 mg/dL (9.8-20.1); CRP (Inflammatory) Less than 0.50 mg/dL (= or < 0.5); Calc. Creatinine Clearance 39 mL/min (70-130); Calcium 8.4 mg/dL (7.8-10.44); Carbon Dioxide 21 mmol/L (23-31); Chloride 102 mmol/L (98-107); Glucose 210 mg/dL (80-115); Potassium 5.1 mmol/L (3.5-5.1); Sodium 130 mmol/L (136-145)
[2020-09-22] MEDS: Mometasone 200 MCG/Formoterol 5 MCG 120 PUFF INHALER INH SCH ×2 (06:32→18:26)
[2020-09-22] MEDS: FLUoxetine HCl 20 MG CAP PO SCH (08:18)
[2020-09-22] MEDS: Potassium Chloride 20 MEQ TAB PO SCH (08:18)
[2020-09-22] MEDS: Ferrous Sulfate 325 MG TAB PO SCH (08:18)
[2020-09-22] MEDS: Gabapentin 300 MG CAP PO SCH ×2 (08:18→20:55)
[2020-09-22] MEDS: Spironolactone 25 MG TAB PO SCH (08:18)
[2020-09-22] MEDS: Isosorbide Dinitrate 20 MG TAB PO SCH (08:18)
[2020-09-22] MEDS: Dexamethasone 6 MG in Sodium Chloride 0.9% 50 ML IVPB SCH (08:20)
[2020-09-22] MEDS: Insulin Glargine 24 UNITS in Pre-Filled Syringe 1 EACH SC SCH ×2 (08:20→20:56)
[2020-09-22] MEDS: Amiodarone 200 MG TAB PO SCH (08:20)
[2020-09-22] MEDS: Carvedilol 25 MG TAB PO SCH ×2 (08:20→16:34)
[2020-09-22] MEDS: hydrALAZINE 25 MG TAB PO SCH ×3 (08:20→20:55)
--- NOTE | 2020-09-22 13:49 | PDOC.HOSPP ---
- Subjective Encounter Date: 09/22/20 (f/u resp failure) Encounter Time: 13:48 Subjective: 65 y/o female admitted for respiratory failure secondary to covid pneumonia, copd and chf exacerbation. Pt reports she continues to feel tired. She notes her breathing is much better compared to admission. She denies any new symptoms - specifically denies any n/v/abd pain, chest pain or shortness of breath - Objective Vital Signs & Weight: Vital Signs (12 hours) Temp Pulse Resp BP BP BP Pulse Ox 09/22/20 08:20 55 L 160/65 H 09/22/20 07:00 97.8 F 54 L 20 152/71 H 97 09/22/20 06:00 97.6 F 55 L 18 160/65 H 99 Weight Weight 220 lb 8 oz I&O: 09/21/20 09/22/20 09/23/20 06:59 06:59 06:59 Intake Total 530 Balance 530 Result Diagrams: 09/20/20 08:09 09/22/20 05:42 Additional Labs: Accuchecks 09/22/20 09/22/20 09/21/20 10:59 05:01 19:39 POC Glucose 160 H 209 H 328 H 09/21/20 16:49 POC Glucose 369 H Hospitalist ROS - Medication Medications: Active Medications Generic Name Dose Route Start Last Admin Trade Name Freq PRN Reason Stop Dose Admin Acetaminophen 650 mg 09/16/20 22:33 09/19/20 20:01 Acetaminophen 325 Mg Tab PO 650 mg Q4H PRN Administration Headache/Fever/Mild Pain (1-3) Amiodarone HCl 200 mg 09/17/20 09:00 09/22/20 08:20 Amiodarone 200 Mg Tab PO 200 mg DAILY LAURYN Administration Atorvastatin Calcium 80 mg 09/17/20 21:00 09/21/20 20:00 Atorvastatin Calcium 40 Mg Tab PO 80 mg HS LAURYN Administration Carvedilol 12.5 mg 09/17/20 08:00 09/22/20 08:20 Carvedilol 25 Mg Tab PO 12.5 mg BID-WM LAURYN Administration Clonazepam 1 mg 09/20/20 12:44 09/21/20 20:02 Clonazepam 1 Mg Tab PO 1 mg TIDPRN PRN Administration Anxiety Donepezil HCl 5 mg 09/17/20 21:00 09/21/20 20:00 Donepezil Hcl 5 Mg Tab PO 5 mg HS LAURYN Administration Ferrous Sulfate 325 mg 09/17/20 08:00 09/22/20 08:18 Ferrous Sulfate 325 Mg Tab PO 325 mg QAM-WM LAURYN Administration Fluoxetine HCl 20 mg 09/17/20 09:00 09/22/20 08:18 Fluoxetine Hcl 20 Mg Cap PO 20 mg DAILY LAURYN Administration Gabapentin 300 mg 09/17/20 09:00 09/22/20 08:18 Gabapentin 300 Mg Cap PO 300 mg BID LAURYN Administration Hydralazine HCl 50 mg 09/17/20 09:00 09/22/20 08:20 Hydralazine 25 Mg Tab PO 50 mg TID LAURYN Administration Dexamethasone 6 mg/ Sodium 51.5 mls @ 100 mls/hr 09/19/20 09:00 09/22/20 08:20 Chloride IVPB 51.5 mls DAILY LAURYN Administration Insulin Glargine 24 units/ 0.24 mls @ 0 mls/hr 09/20/20 21:00 09/21/20 20:03 Miscellaneous Medication SC 0.24 mls HS LAURYN Administration Insulin Glargine 24 units/ 0.24 mls @ 0 mls/hr 09/22/20 09:00 09/22/20 08:20 Miscellaneous Medication SC 0.24 mls QAM LAURYN Administration Insulin Human Lispro 0 units 09/16/20 22:48 09/22/20 11:54 Humalog 300 Units/3 Ml Vial SC 2 unit .MILD SLIDING SCALE PRN Administration Mild Correctional Scale Insulin Human Lispro 0 units 09/16/20 22:48 09/21/20 20:03 Humalog 300 Units/3 Ml Vial SC 4 unit .BEDTIME SLIDING SC PRN Administration Bedtime Correctional Scale Isosorbide Dinitrate 30 mg 09/17/20 09:00 09/22/20 08:18 Isosorbide Dinitrate 20 Mg Tab PO 30 mg DAILY LAURYN Administration Mometasone Furoate/Formoterol Fumar 1 puff 09/17/20 06:30 09/22/20 06:32 Mometasone 200 Mcg/Formoterol 5 Mcg 120 Puff Inhaler INH 1 puff BID-RT LAURYN Administration Pantoprazole Sodium 40 mg 09/17/20 09:00 02/06/21 08:18 Pantoprazole 40 Mg Tab PO 40 mg BID LAURYN Administration Potassium Chloride 40 meq 09/17/20 08:00 09/22/20 08:18 Potassium Chloride 20 Meq Tab PO 40 meq QAM-WM LAURYN Administration Risperidone 0.25 mg 09/17/20 21:00 09/21/20 20:01 Risperidone 0.25 Mg Tab PO 0.25 mg HS LAURYN Administration Ropinirole HCl 2 mg 09/17/20 21:00 09/21/20 20:02 Ropinirole Hcl 1 Mg Tab PO 2 mg HS LAURYN Administration Spironolactone 25 mg 09/17/20 08:00 09/22/20 08:18 Spironolactone 25 Mg Tab PO 25 mg QAM-WM LAURYN Administration Hospitalist Exam Vitals: Vital Signs (12 hours) Temp Pulse Resp BP BP BP Pulse Ox 09/22/20 08:20 55 L 160/65 H 09/22/20 07:00 97.8 F 54 L 20 152/71 H 97 09/22/20 06:00 97.6 F 55 L 18 160/65 H 99 Weight Weight 220 lb 8 oz General Appearance: NAD Heart: RRR, no murmur Respiratory: no wheezes, no rales, no ronchi Respiratory - other findings: decreased breath sounds at bases Gastrointestinal: soft, non-tender, non-distended, normal bowel sounds Extremities: no cyanosis, no clubbing, no edema Psychiatric: normal affect Hosp A/P (1) COVID-19 Code(s): U07.1 - COVID-19 Status: Acute (2) Acute on chronic diastolic heart failure Code(s): I50.33 - ACUTE ON CHRONIC DIASTOLIC (CONGESTIVE) HEART FAILURE Status: Acute (3) Mfnry-hb-sapczot kidney injury Code(s): N17.9 - ACUTE KIDNEY FAILURE, UNSPECIFIED; N18.9 - CHRONIC KIDNEY DISEASE, UNSPECIFIED Status: Acute (4) COPD (chronic obstructive pulmonary disease) Status: Acute Qualifiers: COPD type: COPD with acute exacerbation Qualified Code(s): J44.1 - Chronic obstructive pulmonary disease with (acute) exacerbation (5) Acute respiratory failure with hypoxia Code(s): J96.01 - ACUTE RESPIRATORY FAILURE WITH HYPOXIA Status: Acute (6) Bipolar disorder Code(s): F31.9 - BIPOLAR DISORDER, UNSPECIFIED Status: Acute (7) CAD (coronary artery disease) Code(s): I25.10 - ATHSCL HEART DISEASE OF [place] CORONARY ARTERY W/O ANG PCTRS Status: Chronic (8) CKD (chronic kidney disease) stage 3, GFR 30-59 ml/min Code(s): N18.3 - CHRONIC KIDNEY DISEASE, STAGE 3 (MODERATE) * DO NOT USE * Status: Chronic (9) HTN (hypertension) Code(s): I10 - ESSENTIAL (PRIMARY) HYPERTENSION Status: Chronic (10) History of CVA (cerebrovascular accident) Code(s): Z86.73 - PRSNL HX OF TIA (TIA), AND CEREB INFRC W/O RESID DEFICITS Status: Chronic (11) Anemia Code(s): D64.9 - ANEMIA, UNSPECIFIED Status: Chronic (12) Hyponatremia Code(s): E87.1 - HYPO-OSMOLALITY AND HYPONATREMIA Status: Chronic - Plan Acute on chronic resp failure due to COVID with COPD/exacerbation and CHF s/p diuresis - overall improved - no signs of volume overload HENRRY with CKD - creatinine is stable - uncertain if there will be more improvement Hyponatremia - chronic intermittent by chart review - sodium corrects to 132.6 for glucose - fluid restrict to 1.5 L/day HTN - not optimally controlled - add low dose amlodipine - d/w Dr. Cohn and monitor potassium with the current spironolactone RAY - continue CPAP DM - improved today, will continue adjusting lantus, currently at 24 units BID Anemia - chronic and stable dvt prophy - do not see pharmacologic dvt prophy - will order heparin gi prophy - on bid ppi - home routine discharge planning -anticipate SNF to work on strength. Pt lives alone with no family to provide support.
[2020-09-22] MEDS ORDERED: Amlodipine 5 MG TAB PO SCH (14:00)
--- NOTE | 2020-09-22 16:14 | EKG ---
Test Reason : Blood Pressure : / mmHG Vent. Rate : 095 BPM Atrial Rate : 095 BPM P-R Int : 178 ms QRS Dur : 128 ms QT Int : 392 ms P-R-T Axes : 094 -42 072 degrees QTc Int : 492 ms Sinus rhythm with marked sinus arrhythmia Left axis deviation Left ventricular hypertrophy with QRS widening and repolarization abnormality Cannot rule out Septal infarct , age undetermined Abnormal ECG Confirmed by MERNA DELCID DO [id number]), manager editorial NEDA RAMEY ([id number] on 09/22/2020 4:13:59 PM Referred By: Confirmed By:MERNA DELCID DO
[2020-09-22] MEDS: rOPINIRole HCl 1 MG TAB PO SCH (20:54)
[2020-09-22] MEDS: Atorvastatin Calcium 40 MG TAB PO SCH (20:54)
[2020-09-22] MEDS: clonazePAM 1 MG TAB PO PRN (20:55)
[2020-09-22] MEDS: Donepezil HCl 5 MG TAB PO SCH (20:55)
[2020-09-22] MEDS: risperiDONE 0.25 MG TAB PO SCH (20:55)
--- NOTE | 2020-09-22 22:46 | PRG ---
DATE OF SERVICE: 09/22/2020 SUBJECTIVE: The patient was seen and examined. OBJECTIVE: VITAL SIGNS: Afebrile at 35.8, pulse 64, respiratory rate of 20, blood pressure 155/81. HEENT: Unremarkable. CARDIOVASCULAR SYSTEM: First and second heart sounds were heard. RESPIRATORY SYSTEM: Clear to auscultation. DIGESTIVE SYSTEM: Revealed a benign abdomen. Positive bowel sounds. EXTREMITIES: No peripheral edema. SKIN: No new gross rash. LYMPHATICS: No peripheral lymphadenopathy. IMPRESSION: Acute on chronic kidney disease. PLAN: We will continue with current renal supportive measures. This current baseline might be the patient's the best. Job ID: [id number]
[2020-09-23] MEDS: HumaLOG 300 UNITS/3 ML VIAL SC PRN ×2 (05:00→19:57)
[2020-09-23] MEDS: Mometasone 200 MCG/Formoterol 5 MCG 120 PUFF INHALER INH SCH ×2 (06:15→19:07)
[2020-09-23 07:08] LABS: Band 1 % (5-11); Hemoglobin 10.2 g/dL (12.0-16.0); Lymphocytes 12 % (21-51); MDiff Complete? YES; Mean Corpuscular HGB CONC 32.2 g/dL (32.0-36.0); Mean Corpuscular Hemoglobin 27.2 pg (27.0-31.0); Mean Corpuscular Volume 84.5 fL (78.0-98.0); Mean Platelet Volume 9.9 fL (7.4-10.4); Monocytes 8 % (0-10); Neutrophil 79 % (42-75); Platelet Count 147 thou/uL (130-400); Platelet Morphology Comment Appears Adequate; RBC Distribution Width 15.2 % (11.5-14.5); Red Blood Cell (RBC) Count 3.73 mill/uL (4.20-5.40); White Blood Cell (WBC) Count 8.3 thou/uL (4.8-10.8)
[2020-09-23 07:11] LABS: Anion Gap 12 mmol/L (10-20); BUN (Urea Nitrogen) 43 mg/dL (9.8-20.1); CRP (Inflammatory) Less than 0.50 mg/dL (= or < 0.5); Calc. Creatinine Clearance 37 mL/min (70-130); Calcium 8.7 mg/dL (7.8-10.44); Carbon Dioxide 24 mmol/L (23-31); Chloride 103 mmol/L (98-107); Glucose 209 mg/dL (80-115); Potassium 5.5 mmol/L (3.5-5.1); Sodium 133 mmol/L (136-145)
[2020-09-23] MEDS: Carvedilol 25 MG TAB PO SCH ×2 (08:04→17:08)
[2020-09-23] MEDS: FLUoxetine HCl 20 MG CAP PO SCH (08:05)
[2020-09-23] MEDS: Amiodarone 200 MG TAB PO SCH (08:05)
[2020-09-23] MEDS: Amlodipine 5 MG TAB PO SCH (08:05)
[2020-09-23] MEDS: Gabapentin 300 MG CAP PO SCH ×2 (08:05→19:54)
[2020-09-23] MEDS: Ferrous Sulfate 325 MG TAB PO SCH (08:05)
[2020-09-23] MEDS: Isosorbide Dinitrate 20 MG TAB PO SCH (08:06)
[2020-09-23] MEDS: hydrALAZINE 25 MG TAB PO SCH ×3 (08:06→19:55)
[2020-09-23] MEDS: Insulin Glargine 24 UNITS in Pre-Filled Syringe 1 EACH SC SCH ×2 (09:19→19:56)
[2020-09-23] MEDS: Dexamethasone 6 MG in Sodium Chloride 0.9% 50 ML IVPB SCH (09:19)
[2020-09-23] MEDS: Potassium Chloride 20 MEQ TAB PO SCH (09:29)
[2020-09-23] MEDS: Spironolactone 25 MG TAB PO SCH (09:29)
[2020-09-23] MEDS ORDERED: Sodium Chloride 0.9% 1,000 ML IV SCH (09:30)
--- NOTE | 2020-09-23 10:17 | PDOC.HOSPP ---
- Subjective Encounter Date: 09/23/20 (f/u HENRRY with CKD) Encounter Time: 10:12 Subjective: Pt without complaints this morning. She denies any n/v/abd pain/cp. She reports her breathing is comfortable. - Objective Vital Signs & Weight: Vital Signs (12 hours) Temp Pulse Resp BP BP Pulse Ox 09/23/20 08:10 65 173/58 H 98 09/23/20 07:08 98.1 F 53 L 20 146/57 H 98 09/23/20 04:00 68 160/73 H Weight Weight 220 lb 8 oz I&O: 09/22/20 09/23/20 09/24/20 06:59 06:59 06:59 Intake Total 600 Balance 600 Result Diagrams: 09/23/20 06:20 09/23/20 15:38 Additional Labs: Accuchecks 09/23/20 09/22/20 09/22/20 04:50 20:32 16:11 POC Glucose 249 H 353 H 269 H 09/22/20 10:59 POC Glucose 160 H Hospitalist ROS - Medication Medications: Active Medications Generic Name Dose Route Start Last Admin Trade Name Freq PRN Reason Stop Dose Admin Acetaminophen 650 mg 09/16/20 22:33 09/19/20 20:01 Acetaminophen 325 Mg Tab PO 650 mg Q4H PRN Administration Headache/Fever/Mild Pain (1-3) Amiodarone HCl 200 mg 09/17/20 09:00 09/23/20 08:05 Amiodarone 200 Mg Tab PO 200 mg DAILY LAURYN Administration Amlodipine Besylate 5 mg 09/23/20 09:00 09/23/20 08:05 Amlodipine 5 Mg Tab PO 5 mg DAILY LAURYN Administration Atorvastatin Calcium 80 mg 09/17/20 21:00 09/22/20 20:54 Atorvastatin Calcium 40 Mg Tab PO 80 mg HS LAURYN Administration Carvedilol 12.5 mg 09/17/20 08:00 09/23/20 08:04 Carvedilol 25 Mg Tab PO 12.5 mg BID-WM LAURYN Administration Clonazepam 1 mg 09/20/20 12:44 09/22/20 20:55 Clonazepam 1 Mg Tab PO 1 mg TIDPRN PRN Administration Anxiety Donepezil HCl 5 mg 09/17/20 21:00 09/22/20 20:55 Donepezil Hcl 5 Mg Tab PO 5 mg HS LAURYN Administration Ferrous Sulfate 325 mg 09/17/20 08:00 09/23/20 08:05 Ferrous Sulfate 325 Mg Tab PO 325 mg QAM-WM LAURYN Administration Fluoxetine HCl 20 mg 09/17/20 09:00 09/23/20 08:05 Fluoxetine Hcl 20 Mg Cap PO 20 mg DAILY LAURYN Administration Gabapentin 300 mg 09/17/20 09:00 09/23/20 08:05 Gabapentin 300 Mg Cap PO 300 mg BID LAURYN Administration Hydralazine HCl 50 mg 09/17/20 09:00 09/23/20 08:06 Hydralazine 25 Mg Tab PO 50 mg TID LAURYN Administration Insulin Glargine 24 units/ 0.24 mls @ 0 mls/hr 09/20/20 21:00 09/22/20 20:56 Miscellaneous Medication SC 0.24 mls HS LAURYN Administration Insulin Glargine 24 units/ 0.24 mls @ 0 mls/hr 09/22/20 09:00 09/23/20 09:19 Miscellaneous Medication SC 0.24 mls QAM LAURYN Administration Sodium Chloride 1,000 mls @ 50 mls/hr 09/23/20 09:30 09/23/20 10:01 Normal Saline 0.9% IV 09/23/20 19:31 1,000 mls .Q20H LAURYN Administration Insulin Human Lispro 0 units 09/16/20 22:48 09/23/20 05:00 Humalog 300 Units/3 Ml Vial SC 3 unit .MILD SLIDING SCALE PRN Administration Mild Correctional Scale Insulin Human Lispro 0 units 09/16/20 22:48 09/22/20 20:57 Humalog 300 Units/3 Ml Vial SC 5 unit .BEDTIME SLIDING SC PRN Administration Bedtime Correctional Scale Isosorbide Dinitrate 30 mg 09/17/20 09:00 09/23/20 08:06 Isosorbide Dinitrate 20 Mg Tab PO 30 mg DAILY LAURYN Administration Mometasone Furoate/Formoterol Fumar 1 puff 09/17/20 06:30 09/23/20 06:15 Mometasone 200 Mcg/Formoterol 5 Mcg 120 Puff Inhaler INH 1 puff BID-RT LAURYN Administration Pantoprazole Sodium 40 mg 09/17/20 09:00 09/23/20 08:06 Pantoprazole 40 Mg Tab PO 40 mg BID LAURYN Administration Risperidone 0.25 mg 09/17/20 21:00 09/22/20 20:55 Risperidone 0.25 Mg Tab PO 0.25 mg HS LAURYN Administration Ropinirole HCl 2 mg 09/17/20 21:00 09/22/20 20:54 Ropinirole Hcl 1 Mg Tab PO 2 mg HS LAURYN Administration Hospitalist Exam Vitals: Vital Signs (12 hours) Temp Pulse Resp BP BP Pulse Ox 09/23/20 08:10 65 173/58 H 98 09/23/20 07:08 98.1 F 53 L 20 146/57 H 98 09/23/20 04:00 68 160/73 H Weight Weight 220 lb 8 oz General Appearance: NAD Heart: RRR, no murmur Respiratory: no wheezes, no rales, no ronchi Respiratory - other findings: decreased breath sounds at bases bilateral Gastrointestinal: soft, non-tender, non-distended, normal bowel sounds Extremities: no cyanosis, no clubbing, no edema Psychiatric: normal affect Hosp A/P (1) COVID-19 Code(s): U07.1 - COVID-19 Status: Acute (2) Acute on chronic diastolic heart failure Code(s): I50.33 - ACUTE ON CHRONIC DIASTOLIC (CONGESTIVE) HEART FAILURE Status: Acute (3) Wxmmr-av-[id number] kidney injury Code(s): N17.9 - ACUTE KIDNEY FAILURE, UNSPECIFIED; N18.9 - CHRONIC KIDNEY DISEASE, UNSPECIFIED Status: Acute (4) COPD (chronic obstructive pulmonary disease) Status: Acute Qualifiers: COPD type: COPD with acute exacerbation Qualified Code(s): J44.1 - Chronic obstructive pulmonary disease with (acute) exacerbation (5) Acute respiratory failure with hypoxia Code(s): J96.01 - ACUTE RESPIRATORY FAILURE WITH HYPOXIA Status: Acute (6) Bipolar disorder Code(s): F31.9 - BIPOLAR DISORDER, UNSPECIFIED Status: Acute (7) CAD (coronary artery disease) Code(s): I25.10 - ATHSCL HEART DISEASE OF [place] CORONARY ARTERY W/O ANG PCTRS Status: Chronic (8) CKD (chronic kidney disease) stage 3, GFR 30-59 ml/min Code(s): N18.3 - CHRONIC KIDNEY DISEASE, STAGE 3 (MODERATE) * DO NOT USE * Status: Chronic (9) HTN (hypertension) Code(s): I10 - ESSENTIAL (PRIMARY) HYPERTENSION Status: Chronic (10) History of CVA (cerebrovascular accident) Code(s): Z86.73 - PRSNL HX OF TIA (TIA), AND CEREB INFRC W/O RESID DEFICITS Status: Chronic (11) Anemia Code(s): D64.9 - ANEMIA, UNSPECIFIED Status: Chronic (12) Hyponatremia Code(s): E87.1 - HYPO-OSMOLALITY AND HYPONATREMIA Status: Chronic (13) Hyperkalemia Code(s): E87.5 - HYPERKALEMIA Status: Acute - Plan Hyperkalemia - new today - d/c spironolactone - reviewed orders and pt was receiving daily potassium - d/c - start some gentle NS - recheck this afternoon - updated by message Acute on chronic resp failure due to COVID with COPD/exacerbation and CHF s/p diuresis - overall improved - no signs of volume overload HENRRY with CKD - creatinine is stable Hyponatremia - chronic intermittent by chart review - stable fluid restrict to 1.5 L/day HTN - not optimally controlled - added low dose amlodipine yesterday RAY - continue CPAP DM - more elevated over past 24 hours will adjust lantus Anemia - chronic and stable dvt prophy - will order heparin gi prophy - on bid ppi - home routine d/c planning - pt thinks she has the strength to discharge to home. Due to hyperkalemia she is not a candidate for discharge today - anticipate a few more days. Addendum at 16:52 - repeat potassium is now 6.0. Discussed with Dr. Cohn and will tx with kaexylate, IV lasix, IV calcium gluconate, IV insulin with D50, and obtain ecg. Will recheck in AM. Will also continue NS for hydration. Will request transfer to telemetry for monitoring. ECG reviewed at 17:28 and no peaked t waves. Sinus jim with rate 52, LAD and LBBB
[2020-09-23 16:06] LABS: Anion Gap 13 mmol/L (10-20); BUN (Urea Nitrogen) 46 mg/dL (9.8-20.1); Calc. Creatinine Clearance 37 mL/min (70-130); Calcium 8.4 mg/dL (7.8-10.44); Carbon Dioxide 20 mmol/L (23-31); Chloride 103 mmol/L (98-107); Glucose 267 mg/dL (80-115); Sodium 130 mmol/L (136-145)
[2020-09-23] MEDS ORDERED: Dextrose 50% Abboject 50 ML SYRINGE SLOW IVP PRN (16:47)
[2020-09-23] MEDS ORDERED: Calcium Gluconate 4.6 MEQ in Sodium Chloride 0.9% 100 ML IVPB ONE (16:54)
[2020-09-23] MEDS ORDERED: Calcium Gluc 4.6 MEQ/10 ML (100 MG/ML) SLOW IVP SCH (17:00)
[2020-09-23] MEDS ORDERED: Insulin Regular 300 UNITS/3 ML VIAL IVP SCH (17:00)
[2020-09-23] MEDS ORDERED: Furosemide 40 MG/4 ML VIAL SLOW IVP SCH (17:00)
--- NOTE | 2020-09-23 18:05 | PRG ---
DATE OF SERVICE: 09/23/2020 SUBJECTIVE: The patient is seen, noted with the following vital signs. OBJECTIVE: VITAL SIGNS: Afebrile, temperature 98.1, pulse 52, O2 saturation of 98%, blood pressure 165/63. HEENT: Unremarkable. CARDIOVASCULAR SYSTEM: First and second heart sounds were heard. RESPIRATORY SYSTEM: Clear to auscultation. DIGESTIVE SYSTEM: Revealed an obese abdomen. EXTREMITIES: Showed no significant peripheral edema. LABORATORY INVESTIGATION: Showed a rising potassium, creatinine 2.42, BUN of 43, potassium has risen up to 6.0. IMPRESSION: 1. Acute on chronic kidney disease. 2. Hyperkalemia. 3. Mild hyponatremia. 4. COVID pneumonitis. PLAN: 1. Pulmonary discontinued spironolactone and in place of this to use loop diuretic. 2. Medically manage the hyperkalemia with Kayexalate, potassium gluconate and dextrose with insulin. Hopefully, this will be able to hold down the potassium in addition to a low-potassium diet. Otherwise, if this potassium continues to rise at this pace, the patient may need hemodialysis to address this. 3. Further management to be dependent on the clinical course. Job ID: [id number]
[2020-09-23] MEDS: Atorvastatin Calcium 40 MG TAB PO SCH (19:54)
[2020-09-23] MEDS: Donepezil HCl 5 MG TAB PO SCH (19:54)
[2020-09-23] MEDS: risperiDONE 0.25 MG TAB PO SCH (19:55)
[2020-09-23] MEDS: clonazePAM 1 MG TAB PO PRN (19:55)
[2020-09-23] MEDS: rOPINIRole HCl 1 MG TAB PO SCH (19:55)
[2020-09-23] MEDS: Heparin 5,000 UNITS/ML VIAL SC SCH (21:13)
[2020-09-23] MEDS: Sodium Chloride 0.9% 1,000 ML IV SCH (21:23)
--- NOTE | 2020-09-24 07:40 | PDOC.HOSPP ---
- Subjective Encounter Date: 09/24/20 Encounter Time: 07:30 Subjective: alert, no distress - Objective Vital Signs & Weight: Vital Signs (12 hours) Temp Pulse Resp BP BP Pulse Ox 09/24/20 04:00 98.7 F 51 L 16 154/68 H 99 09/24/20 03:39 99 09/23/20 22:15 98.2 F 56 L 12 190/93 H 99 09/23/20 21:45 98 F 55 L 09/23/20 20:00 99 09/23/20 19:55 51 L Weight Weight 220 lb 8 oz I&O: 09/23/20 09/24/20 09/25/20 06:59 06:59 06:59 Intake Total 600 1440 Output Total 350 Balance 600 1090 Result Diagrams: 09/23/20 06:20 09/23/20 15:38 Additional Labs: Accuchecks 09/23/20 09/23/20 09/23/20 22:56 19:47 16:48 POC Glucose 196 H 339 H 268 H 09/23/20 11:52 POC Glucose 153 H Hospitalist ROS - Medication Medications: Active Medications Generic Name Dose Route Start Last Admin Trade Name Freq PRN Reason Stop Dose Admin Acetaminophen 650 mg 09/16/20 22:33 09/19/20 20:01 Acetaminophen 325 Mg Tab PO 650 mg Q4H PRN Administration Headache/Fever/Mild Pain (1-3) Amiodarone HCl 200 mg 09/17/20 09:00 09/23/20 08:05 Amiodarone 200 Mg Tab PO 200 mg DAILY LAURYN Administration Amlodipine Besylate 5 mg 09/23/20 09:00 09/23/20 08:05 Amlodipine 5 Mg Tab PO 5 mg DAILY LAURYN Administration Atorvastatin Calcium 80 mg 09/17/20 21:00 09/23/20 19:54 Atorvastatin Calcium 40 Mg Tab PO 80 mg HS LAURYN Administration Carvedilol 12.5 mg 09/17/20 08:00 09/23/20 17:08 Carvedilol 25 Mg Tab PO 12.5 mg BID-WM LAURYN Administration Clonazepam 1 mg 09/20/20 12:44 09/23/20 19:55 Clonazepam 1 Mg Tab PO 1 mg TIDPRN PRN Administration Anxiety Donepezil HCl 5 mg 09/17/20 21:00 09/23/20 19:54 Donepezil Hcl 5 Mg Tab PO 5 mg HS LAURYN Administration Ferrous Sulfate 325 mg 09/17/20 08:00 09/23/20 08:05 Ferrous Sulfate 325 Mg Tab PO 325 mg QAM-WM LAURYN Administration Fluoxetine HCl 20 mg 09/17/20 09:00 09/23/20 08:05 Fluoxetine Hcl 20 Mg Cap PO 20 mg DAILY LAURYN Administration Gabapentin 300 mg 09/17/20 09:00 09/23/20 19:54 Gabapentin 300 Mg Cap PO 300 mg BID LAURYN Administration Heparin Sodium (Porcine) 5,000 units 09/23/20 21:00 09/23/20 21:13 Heparin 5,000 Units/Ml Vial SC 5,000 units BID LAURYN Administration Hydralazine HCl 50 mg 09/17/20 09:00 09/23/20 19:55 Hydralazine 25 Mg Tab PO 50 mg TID LAURYN Administration Insulin Glargine 24 units/ 0.24 mls @ 0 mls/hr 09/20/20 21:00 09/23/20 19:56 Miscellaneous Medication SC 0.24 mls HS LAURYN Administration Insulin Glargine 24 units/ 0.24 mls @ 0 mls/hr 09/22/20 09:00 09/23/20 09:19 Miscellaneous Medication SC 0.24 mls QAM LAURYN Administration Sodium Chloride 1,000 mls @ 50 mls/hr 09/23/20 20:15 09/23/20 21:23 Normal Saline 0.9% IV 1,000 mls .Q20H LAURYN Administration Insulin Human Lispro 0 units 09/16/20 22:48 09/23/20 05:00 Humalog 300 Units/3 Ml Vial SC 3 unit .MILD SLIDING SCALE PRN Administration Mild Correctional Scale Insulin Human Lispro 0 units 09/16/20 22:48 09/23/20 19:57 Humalog 300 Units/3 Ml Vial SC 4 unit .BEDTIME SLIDING SC PRN Administration Bedtime Correctional Scale Isosorbide Dinitrate 30 mg 09/17/20 09:00 09/23/20 08:06 Isosorbide Dinitrate 20 Mg Tab PO 30 mg DAILY LAURYN Administration Mometasone Furoate/Formoterol Fumar 1 puff 09/17/20 06:30 09/23/20 19:07 Mometasone 200 Mcg/Formoterol 5 Mcg 120 Puff Inhaler INH 1 puff BID-RT LAURYN Administration Pantoprazole Sodium 40 mg 09/17/20 09:00 09/23/20 19:53 Pantoprazole 40 Mg Tab PO 40 mg BID LAURYN Administration Risperidone 0.25 mg 09/17/20 21:00 09/23/20 19:55 Risperidone 0.25 Mg Tab PO 0.25 mg HS LAURYN Administration Ropinirole HCl 2 mg 09/17/20 21:00 09/23/20 19:55 Ropinirole Hcl 1 Mg Tab PO 2 mg HS LAURYN Administration Hospitalist Exam Vitals: Vital Signs (12 hours) Temp Pulse Resp BP BP Pulse Ox 09/24/20 04:00 98.7 F 51 L 16 154/68 H 99 09/24/20 03:39 99 09/23/20 22:15 98.2 F 56 L 12 190/93 H 99 09/23/20 21:45 98 F 55 L 09/23/20 20:00 99 09/23/20 19:55 51 L Weight Weight 220 lb 8 oz General Appearance: awake alert Neck: no JVD Heart: RRR, no murmur Respiratory: CTAB Gastrointestinal: soft, normal bowel sounds Extremities: no edema Hosp A/P (1) [id number] kidney injury Code(s): N17.9 - ACUTE KIDNEY FAILURE, UNSPECIFIED; N18.9 - CHRONIC KIDNEY DISEASE, UNSPECIFIED Status: Acute Qualifiers: Chronic kidney disease stage: stage 3 (moderate) (2) COPD (chronic obstructive pulmonary disease) Status: Acute Qualifiers: COPD type: COPD with acute exacerbation Qualified Code(s): J44.1 - Chronic obstructive pulmonary disease with (acute) exacerbation (3) COVID-19 Code(s): U07.1 - COVID-19 Status: Acute (4) Hyperkalemia Code(s): E87.5 - HYPERKALEMIA Status: Acute (5) Anemia Code(s): D64.9 - ANEMIA, UNSPECIFIED Status: Chronic Qualifiers: Anemia type: due to chronic kidney disease (6) Acute respiratory failure with hypoxia Code(s): J96.01 - ACUTE RESPIRATORY FAILURE WITH HYPOXIA Status: Acute (7) CAD (coronary artery disease) Code(s): I25.10 - ATHSCL HEART DISEASE OF [place] CORONARY ARTERY W/O ANG PCTRS Status: Chronic Qualifiers: Coronary Disease-Associated Artery/Lesion type: crow artery [place] vs. transplanted heart: crow heart Associated angina: without angina Qualified Code(s): I25.10 - Atherosclerotic heart disease of [place] coronary artery without angina pectoris (8) Diabetes mellitus type 2, uncontrolled Code(s): E11.65 - TYPE 2 DIABETES MELLITUS WITH HYPERGLYCEMIA Status: Chronic Qualifiers: Glycemic state: with hyperglycemia Qualified Code(s): E11.65 - Type 2 diabetes mellitus with hyperglycemia (9) HTN (hypertension) Code(s): I10 - ESSENTIAL (PRIMARY) HYPERTENSION Status: Chronic Qualifiers: Hypertension type: essential hypertension Qualified Code(s): I10 - Essential (primary) hypertension (10) Acute on chronic diastolic heart failure Code(s): I50.33 - ACUTE ON CHRONIC DIASTOLIC (CONGESTIVE) HEART FAILURE Status: Acute - Plan covid- cont O2, steroids hyperkalemia- post kayeclate, stat K= evel DM2-accu/ss/lantus-adjust as appropriate ARK/CKD- monitor BMP, discuss with nephrology
[2020-09-24] MEDS: Carvedilol 25 MG TAB PO SCH ×2 (07:49→17:33)
[2020-09-24] MEDS: Dexamethasone 4 MG TAB PO SCH (07:50)
[2020-09-24] MEDS: Amlodipine 5 MG TAB PO SCH (07:52)
[2020-09-24] MEDS: FLUoxetine HCl 20 MG CAP PO SCH (07:52)
[2020-09-24] MEDS: Ferrous Sulfate 325 MG TAB PO SCH (07:52)
[2020-09-24] MEDS: Amiodarone 200 MG TAB PO SCH (07:52)
[2020-09-24] MEDS: hydrALAZINE 25 MG TAB PO SCH ×3 (07:53→21:31)
[2020-09-24] MEDS: Heparin 5,000 UNITS/ML VIAL SC SCH ×2 (07:53→21:30)
[2020-09-24] MEDS: Gabapentin 300 MG CAP PO SCH ×2 (07:53→21:32)
[2020-09-24] MEDS: Isosorbide Dinitrate 20 MG TAB PO SCH (07:54)
[2020-09-24] MEDS: Sodium Chloride 0.9% 1,000 ML IV SCH (07:55)
[2020-09-24] MEDS: clonazePAM 1 MG TAB PO PRN ×2 (08:14→21:53)
[2020-09-24] MEDS: Mometasone 200 MCG/Formoterol 5 MCG 120 PUFF INHALER INH SCH ×2 (08:14→17:34)
[2020-09-24 08:34] LABS: Anion Gap 15 mmol/L (10-20); BUN (Urea Nitrogen) 44 mg/dL (9.8-20.1); Calc. Creatinine Clearance 37 mL/min (70-130); Calcium 8.7 mg/dL (7.8-10.44); Carbon Dioxide 21 mmol/L (23-31); Chloride 104 mmol/L (98-107); Glucose 128 mg/dL (80-115); Potassium 4.8 mmol/L (3.5-5.1); Sodium 135 mmol/L (136-145)
[2020-09-24] MEDS: Insulin Glargine 24 UNITS in Pre-Filled Syringe 1 EACH SC SCH ×2 (09:15→21:46)
[2020-09-24] MEDS: HumaLOG 300 UNITS/3 ML VIAL SC PRN ×2 (10:44→15:50)
--- NOTE | 2020-09-24 18:54 | PRG ---
DATE OF SERVICE: 09/24/2020 OBJECTIVE: VITAL SIGNS: The patient noted with the following vital signs; afebrile, temperature 98.5, pulse respiratory rate of 18, O2 saturations of 94%, blood pressure . HEENT: Unremarkable. CARDIOVASCULAR SYSTEM: First and second heart sounds were heard. RESPIRATORY SYSTEM: Clear to auscultation. DIGESTIVE SYSTEM: Revealed a benign abdomen with positive bowel sounds. EXTREMITIES: No peripheral edema. LABORATORY INVESTIGATION: Showed a creatinine of 2.42 with BUN of 44. IMPRESSION: 1. Acute on chronic kidney disease. 2. Hyperkalemia, resolved. 3. COVID pneumonitis. PLAN: 1. Continue current renal supportive measures. 2. Further management to be dependent on the clinical course. Job ID: [id number]
[2020-09-24] MEDS: rOPINIRole HCl 1 MG TAB PO SCH (21:31)
[2020-09-24] MEDS: Atorvastatin Calcium 40 MG TAB PO SCH (21:31)
[2020-09-24] MEDS: risperiDONE 0.25 MG TAB PO SCH (21:32)
[2020-09-24] MEDS: Donepezil HCl 5 MG TAB PO SCH (21:32)
[2020-09-25] MEDS: HumaLOG 300 UNITS/3 ML VIAL SC PRN ×2 (05:25→11:38)
[2020-09-25 05:29] LABS: Anion Gap 15 mmol/L (10-20); BUN (Urea Nitrogen) 49 mg/dL (9.8-20.1); Calc. Creatinine Clearance 39 mL/min (70-130); Calcium 8.3 mg/dL (7.8-10.44); Carbon Dioxide 19 mmol/L (23-31); Chloride 103 mmol/L (98-107); Glucose 318 mg/dL (80-115); Potassium 4.9 mmol/L (3.5-5.1); Sodium 132 mmol/L (136-145)
[2020-09-25] MEDS: Mometasone 200 MCG/Formoterol 5 MCG 120 PUFF INHALER INH SCH (06:01)
[2020-09-25] MEDS: Dexamethasone 4 MG TAB PO SCH (08:32)
[2020-09-25] MEDS: Carvedilol 25 MG TAB PO SCH (08:32)
[2020-09-25] MEDS: Ferrous Sulfate 325 MG TAB PO SCH (08:33)
[2020-09-25] MEDS: FLUoxetine HCl 20 MG CAP PO SCH (08:33)
[2020-09-25] MEDS: Amlodipine 5 MG TAB PO SCH (08:33)
[2020-09-25] MEDS: Amiodarone 200 MG TAB PO SCH (08:33)
[2020-09-25] MEDS: Gabapentin 300 MG CAP PO SCH (08:34)
[2020-09-25] MEDS: Heparin 5,000 UNITS/ML VIAL SC SCH (08:34)
[2020-09-25] MEDS: hydrALAZINE 25 MG TAB PO SCH ×2 (08:35→15:42)
[2020-09-25] MEDS: Isosorbide Dinitrate 20 MG TAB PO SCH (08:35)
[2020-09-25] MEDS: Insulin Glargine 24 UNITS in Pre-Filled Syringe 1 EACH SC SCH (08:35)
[2020-09-25 15:54] VITALS: BP 219/88; TEMP 98.1
--- NOTE | 2020-09-26 07:41 | DIS ---
DATE OF ADMISSION: 09/17/2020 DATE OF DISCHARGE: 09/25/2020 PRIMARY CARE PHYSICIAN: None. DISPOSITION: Discharged home. FINAL DIAGNOSES: Acute on chronic kidney failure, hyperkalemia, COVID-19, diabetes mellitus type 2 with chronic kidney disease, chronic obstructive pulmonary disease, chronic diastolic heart failure, atrial fibrillation, coronary artery disease, hypertension. DISCHARGE MEDICATIONS: 1. Risperdal 0.25 mg at bedtime. 2. Ropinirole 2 mg at bedtime. 3. Apresoline 50 mg p.o. t.i.d. 4. Protonix 40 mg p.o. b.i.d. 5. Dulera 200/5 one puff b.i.d. 6. Isosorbide dinitrate 30 mg p.o. daily. 7. DuoNeb 3 mL q.6 hours p.r.n. 8. Insulin Lantus 20 units subcu b.i.d. 9. Gabapentin 300 mg p.o. b.i.d. 10. Fluoxetine 20 mg a day. 11. Donepezil 5 mg a day. 12. Coreg 12.5 mg p.o. b.i.d. 13. Atorvastatin 80 mg a day. 14. Norvasc 5 mg a day. 15. Amiodarone 200 mg a day. ALLERGIES: CODEINE. DIET: Diabetic. CODE STATUS: Full. PENDING AT THE TIME OF DISCHARGE: Nothing. HOSPITAL COURSE: The patient admitted to [facility] through the emergency department with shortness of breath. She continues to smoke 2 packs a day, oxygen dependent, has CPAP at home. She states she has moved here recently and does not have a doctor. Her CT of the chest revealed no pulmonary embolism, some evidence of chronic changes. LABORATORY DATA AND IMAGING STUDIES: Sodium 142, potassium 3.2, BUN 16, creatinine 1.82, blood sugar 143. Cardiac enzymes were elevated but flat at 0.08, 0.116, 0.99. BNP was elevated modestly at 815. Her D-dimer was 2.88 on 09/16/2020, 2.76 on 09/19/2020 and stayed in the 2.3 range the rest of her stay. White count on admission was 7.1, hemoglobin 11.0, platelet count 181,000 with a low lymphocyte count. She was COVID positive. Urine drug screen was unremarkable. Echocardiogram done a year ago revealed LVEF of 55% to 60% with a suggestion of diastolic heart failure. Chest x-ray on this admission showed cardiomegaly with some mild vascular congestion on 09/17/2020. She was on some mild IV diuresis at that time. On 09/21/2020, Dr. Milton Cohn, Nephrology, was consulted. The patient improved. During her hospital stay, she developed hyperkalemia. Spironolactone was discontinued. Her oral daily potassium was discontinued. Amlodipine was added for blood pressure control. Her renal function has stayed stable at the chronic kidney disease stage 4 level during her hospital stay. Her potassium has normalized. She has not been on Lasix. She will be discharged with an addition of Lasix 40 mg once a day in addition to the medicines listed above. She has been told she needs to refrain from smoking. She needs to obtain a local PCP. She needs to be seen by PCP within 1 week if at all possible for followup of basic metabolic profile, followup of heart failure, etc. 40 minutes spent preparing this discharge. Job ID: [id number]
--- NOTE | 2020-09-28 13:57 | EKG ---
Test Reason : HIGH K Blood Pressure : / mmHG Vent. Rate : 052 BPM Atrial Rate : 052 BPM P-R Int : 190 ms QRS Dur : 134 ms QT Int : 478 ms P-R-T Axes : 055 -50 045 degrees QTc Int : 444 ms Sinus bradycardia Left axis deviation Left bundle branch block Abnormal ECG When compared with ECG of 16-SEP-2020 19:14, Vent. rate has decreased BY 43 BPM Left bundle branch block is now Present Minimal criteria for Septal infarct are no longer Present Confirmed by DR. Abel GREENE ([id number]) on 09/28/2020 1:56:29 PM Referred By: KRAIG BRENNAN Confirmed By:DR. Abel GREENE
== END 2020-09-25 16:52 | disposition home or self-care (01) | DRG 177 ==
LOC: ERS 19:00 → 2NO 22:25 → OBSVTOIN 09-17 10:15 → T4-A 09-19 22:53 → 2SE 09-23 22:45
PROVIDERS: ADMIT Student in an Organized Health Care Education/Training Program; ATTEND Internal Medicine
DX: U07.1 COVID-19 (principal); J96.01 Acute respiratory failure with hypoxia; I50.33 Acute on chronic diastolic (congestive) heart failure; J12.82 Pneumonia due to coronavirus disease 2019; I13.0 Hypertensive heart and chronic kidney disease with heart failure and stage 1 through stage 4 chronic kidney disease, or unspecified chronic kidney disease; N18.4 Chronic kidney disease, stage 4 (severe); N17.9 Acute kidney failure, unspecified; J44.1 Chronic obstructive pulmonary disease with (acute) exacerbation; J44.0 Chronic obstructive pulmonary disease with (acute) lower respiratory infection; E87.1 Hypo-osmolality and hyponatremia; E11.22 Type 2 diabetes mellitus with diabetic chronic kidney disease; I25.10 Atherosclerotic heart disease of native coronary artery without angina pectoris; F17.200 Nicotine dependence, unspecified, uncomplicated; E87.6 Hypokalemia; E66.01 Morbid (severe) obesity due to excess calories; F41.9 Anxiety disorder, unspecified; E11.65 Type 2 diabetes mellitus with hyperglycemia; G47.33 Obstructive sleep apnea (adult) (pediatric); F31.9 Bipolar disorder, unspecified; E87.5 Hyperkalemia; Z79.51 Long term (current) use of inhaled steroids; Z90.49 Acquired absence of other specified parts of digestive tract; Z95.5 Presence of coronary angioplasty implant and graft; Z90.710 Acquired absence of both cervix and uterus; Z86.73 Personal history of transient ischemic attack (TIA), and cerebral infarction without residual deficits; Z88.6 Allergy status to analgesic agent; Z79.899 Other long term (current) drug therapy; Z79.82 Long term (current) use of aspirin
CPT/HCPCS: 36415; 36416; 71045; 71275; 80048; 80053; 80306; 80307; 82550; 82553; 82728; 83880; 84439; 84443; 84484; 85025; 85379; 86140; 87635; 93005; 93010; 96374; 96375; 96376; G0378; J1100; J1644; J1815; J1940; J2001; J2930; J8540; Q9967; U0003; U0005

== ENCOUNTER 2020-10-02 01:57 | Inpatient (IN) | payer MEDICARE, OTHER ==
[2020-10-02] MEDS ORDERED: Dexamethasone 10 MG/ML VIAL ONE (02:29)
[2020-10-02] MEDS ORDERED: Acetaminophen 500 MG TAB ONE (02:29)
[2020-10-02 02:30] LABS: Actual Bicarbonate (HCO3a) 19.9 mEq/L (22-28); Analyzer IN Cardio ER; Base Excess (BEa) -4.7 mEq/L (-2.0 to +3.0); CO2 Tension 34.6 mmHg (35.0-45.0); Calcium, Ionized (arterial) 1.16 mmol/L (1.12-1.30); Carboxyhemoglobin (COHb) 0.2 gm% (0.0-3.0); Hemoglobin (Hb) 10.5 g/dL (12.0-16.0); Potassium - ABG Lab 3.56 mmol/L (3.70-5.30); pH, Arterial 7.38 (7.35-7.45)
[2020-10-02 02:34] LABS: Puncture Site LRA
[2020-10-02 02:38] LABS: #Eosinphils 0.1 thou/uL (0.0-0.7); #Lymphocytes 0.8 thou/uL (1.20-3.40); #Monocytes 0.8 thou/uL (0.11-0.59); %Basophils 0.3 % (0.0-1.0); %Eosinophils 1.3 % (0.0-10.0); %Lymphocytes 7.1 % (21.0-51.0); %Monocytes 6.5 % (0.0-10.0); %Neutrophils 84.9 % (42.0-75.0); Hemoglobin 10.5 g/dL (12.0-16.0); Mean Corpuscular HGB CONC 31.9 g/dL (32.0-36.0); Mean Corpuscular Hemoglobin 27.3 pg (27.0-31.0); Mean Corpuscular Volume 85.4 fL (78.0-98.0); Mean Platelet Volume 9.6 fL (7.4-10.4); Platelet Count 150 thou/uL (130-400); RBC Distribution Width 15.4 % (11.5-14.5); Red Blood Cell (RBC) Count 3.86 mill/uL (4.20-5.40); White Blood Cell (WBC) Count 11.8 thou/uL (4.8-10.8)
[2020-10-02 02:49] LABS: ALT (SGPT) 14 U/L (8-55); AST (SGOT) 14 U/L (5-34); Alkaline Phosphatase 178 U/L (40-110); Anion Gap 14 mmol/L (10-20); BUN (Urea Nitrogen) 20 mg/dL (9.8-20.1); Bilirubin, Total 0.5 mg/dL (0.2-1.2); CK (CPK) 27 U/L (29-168); Calc. Creatinine Clearance 0 mL/min (70-130); Calcium 8.4 mg/dL (7.8-10.44); Carbon Dioxide 22 mmol/L (23-31); Chloride 106 mmol/L (98-107); Globulin 3.5 g/dL (2.4-3.5); Glucose 196 mg/dL (80-115); Potassium 3.8 mmol/L (3.5-5.1); Protein, Total 6.5 g/dL (5.8-8.1); Sodium 138 mmol/L (136-145)
[2020-10-02] MEDS ORDERED: cefOXitin Sodium/Dextrose 2 GM/50 ML BAG ONE (02:53)
[2020-10-02 03:10] LABS: CKMB 1.5 ng/mL (0-6.6)
[2020-10-02] MEDS ORDERED: VANCOMYCIN 2 GRAM/400 ML BAG 2 GM in Premix Bag 1 BAG IVPB SCH (03:15)
[2020-10-02 03:46] LABS: SARS-CoV-2 NAA Rapid Test DETECTED (NotDetected)
[2020-10-02 04:32] LABS: Bacteria/HPF None Seen HPF (None Seen); Bilirubin Negative (Negative); Blood, Urine 1+ (Negative); Clarity Clear (Clear); Glucose, Urine (Dipstick) 100 mg/dL (Negative); Ketone, Urine Negative (Negative); Leukocyte Negative Leu/uL (Negative); Nitrite Negative (Negative); Protein, Urine (Dipstick) 300 mg/dL (Neg-Trace); RBC/HPF 0-3 HPF (0-3); Specific Gravity, Urine 1.019 (1.002-1.036); Squamous Epithelial 0-3 HPF (0-3); Urobilinogen Normal mg/dL (Less than 2); WBC/HPF 0-3 HPF (0-3)
--- NOTE | 2020-10-02 07:51 | RAD ---
EXAM: Single view of the chest HISTORY: Difficulty breathing. Covid positive COMPARISON: 09/16/2020 FINDINGS: Single view of the chest shows an enlarged but stable cardiomediastinal silhouette. Patien t is status post CABG. Diffuse increased interstitial lung markings are present. There may be small bilateral pleural effusions. No obvious infiltrates are seen. No acute osseous abnormality. IMPRESSION: Cardiomegaly and bilateral pleural effusions
[2020-10-02] MEDS ORDERED: Ondansetron PF 4 MG/2 ML Vial IVP PRN (10:16)
[2020-10-02] MEDS ORDERED: Senokot S 8.6-50 MG TAB PO PRN ×2 (10:16)
[2020-10-02] MEDS ORDERED: Sodium Chloride 0.65% Nasal 44 ML BOT EA NARE PRN (10:16)
[2020-10-02] MEDS ORDERED: Zolpidem Tartrate 5 MG TAB PO PRN (10:16)
[2020-10-02] MEDS ORDERED: Loratadine 10 MG TAB PO PRN (10:16)
[2020-10-02] MEDS ORDERED: Acetaminophen 325 MG TAB PO PRN (10:16)
[2020-10-02] MEDS ORDERED: Benzonatate 100 MG CAP PO PRN (10:16)
[2020-10-02] MEDS ORDERED: HumaLOG 300 UNITS/3 ML VIAL SC PRN (10:16)
[2020-10-02] MEDS ORDERED: GUAIFENESIN SF SOLN 200 MG/10 ML UDCUP PO PRN (10:16)
[2020-10-02] MEDS ORDERED: Bisacodyl 10 MG SUPP PR PRN (10:16)
[2020-10-02] MEDS ORDERED: Guaifenesin DM 100-10/5 ML UDCUP PO PRN (10:16)
[2020-10-02] MEDS ORDERED: Dextrose 50% Abboject 50 ML SYRINGE SLOW IVP PRN (10:16)
[2020-10-02] MEDS ORDERED: Dextrose 5% in Water 1,000 ML IV PRN (10:16)
[2020-10-02] MEDS ORDERED: Loperamide HCl 2 MG CAP PO PRN ×2 (10:16)
[2020-10-02] MEDS ORDERED: hydrALAZINE 20 MG/ML VIAL SLOW IVP PRN (10:16)
[2020-10-02] MEDS ORDERED: Ondansetron ODT 4 MG TAB PO PRN (10:16)
[2020-10-02] MEDS ORDERED: Cepastat Lozenges 1 LOZ PO PRN (10:16)
[2020-10-02] MEDS ORDERED: Calcium Carbonate 500 MG ChewTAB PO PRN (10:16)
--- NOTE | 2020-10-02 10:30 | PDOC.HHP ---
Hospitalist HPI Shortness of breath History of Present Illness: 65-year-old female who was recently hospitalized on September 17, 2020 and subsequently she was discharged on September 26, 2020, during that admission patient had acute on chronic kidney failure as well as acute on chronic diastolic heart failure and hyperkalemia, nephrology consulted and her spironolactone was discontinued and patient was given amlodipine for better b lood pressure control and on discharge she was discharged with oral Lasix. Patient was euvolemic by the time of discharge, she has underlying sleep apnea and she is using home CPAP machine. During that admission patient was also positive for COVID-19. Patient reports that she was doing well up until 1 week after discharge but subsequently her shortness of breath gradually gotten worse, she was having orthopnea and she gained some weight, she was also having cough, she denies any pleuritic chest pain but she was having vague right-sided chest discomfort which she described as tightness, she denies any palpitation or dizziness, she was not having body ache and fatigue. She was found with a fever in the emergency room. In the emergency room patient was hypotensive, she was tachypneic and she was requiring BiPAP, she was comfortable after BiPAP, patient was given vancomycin and cefepime for suspected infiltration, but chest x-ray showed bilateral pleural effusion and interstitial infiltration. Routine laboratory test showed mild leukocytosis and her creatinine is stable range, her troponin is indeterminant range, her BNP is elevated. Patient is being admitted for further evaluation and treatment ED Course: Patient is given cefepime and vancomycin,Tylenol l and dexamethasone 10 mg given VITAL SIGNS ThuOct 02, 2020 01:58 LEO Gillette Lee BP: 158/70, Pulse: 86, Resp: 26, Temp: 100.4 (Oral), Pain: 2, O2 sat: 98, Time: 10/02/2020 01:58. VITAL SIGNS ThuOct 02, 2020 04:00 LEO Gillette Lee BP: 172/86, Pulse: 86, Resp: 20, O2 sat: 97 on (Bipap), Time: 10/02/2020 04:00. VITAL SIGNS ThuOct 02, 2020 03:30 LEO Gillette Lee BP: 164/88, Pulse: 82, Resp: 22, O2 sat: 99 on (Bipap), Time: 10/02/2020 03:30. VITAL SIGNS ThuOct 02, 2020 05:00 LEO Gillette, Adalberto BP: 175/85, Pulse: 78, Resp: 22, Pain: 0, O2 sat: 98 on (Bipap), Time: 10/02/2020 05:00. VITAL SIGNS ThuOct 02, 2020 08:49 LEO Leger Klara BP: 202/87, MAP: 125, Pulse: 72, Resp: 20, Temp: 98 (Oral), Pain: 0, O2 sat: 100 on (Bipap), Time: 10/02/2020 08:49 Allergies/Adverse Reactions: Allergy/AdvReac Type Severity Reaction Status Date / Time codeine Allergy Intermediate Hives Verified 09/17/20 00:11 Home Medications: Medication Instructions Recorded Confirmed Type Amiodarone [Cordarone] 200 mg PO DAILY #30 tab 09/25/20 Rx Amlodipine [Norvasc] 5 mg PO DAILY #30 tab 09/25/20 Rx Atorvastatin Calcium 80 mg PO HS #30 tablet 09/25/20 Rx Carvedilol [Coreg] 12.5 mg PO BID #60 tablet 09/25/20 Rx Donepezil HCl [Aricept] 5 mg PO HS #1 tablet 09/25/20 Rx FLUoxetine HCl 20 mg PO DAILY #30 tablet 09/25/20 Rx Ferrous Sulfate 325 mg PO DAILY #30 tab 09/25/20 Rx Furosemide [Lasix] 40 mg PO DAILY #30 tab 09/25/20 Rx Gabapentin [Neurontin] 300 mg PO BID #60 cap 09/25/20 Rx Insulin Glargine,Hum.Rec.Anlog 20 units SQ BID #1 vial 09/25/20 Rx [Lantus] Ipratropium/Albuterol Sulfate 3 ml NEB X8ON-OG #120 neb 09/25/20 Rx [DuoNeb] Isosorbide Dinitrate 30 mg PO DAILY #30 tablet 09/25/20 Rx Mometasone/Formoterol 200/5 1 puff INH BID-RT #1 inh 09/25/20 Rx [Dulera 200 Mcg/5 Mcg Inhaler] Pantoprazole [Protonix] 40 mg PO BID #60 tab 09/25/20 Rx risperiDONE [RisperDAL] 0.25 mg PO HS #30 tab 09/25/20 Rx hydrALAZINE [Apresoline] 25 mg PO TID 10/02/20 History rOPINIRole HCl [Ropinirole HCl] 1 mg PO HS 10/02/20 History Past History: PMHx: Chronic diastolic heart failure Hypertension Diabetes type 2 Chronic kidney disease stage III-IV Anemia of renal disease Morbid obesity Obstructive sleep apnea Alzheimer's dementia Coronary artery disease COPD Anxiety and depression PSHx: Benign breast tumor removed from the breast, Jayce in the lower right leg Cholecystectomy Hysterectomy Cardiac catheterization FHx: No strong family history of premature coronary artery disease stroke or cancer Social: Patient has history of smoking about 2 pack/day, no alcohol or other illicit drug abuse, lives at home with family Hospitalist [facility] Constitutional: reports: fever, weakness, malaise. denies: chills, sweats, other ENT: denies: ear pain, ear discharge, nose pain, nose discharge, nose congestion, mouth pain, mouth swelling, throat pain, throat swelling, other Respiratory: reports: cough, shortness of breath, SOB with excertion. denies: dry, hemoptysis, pleuritic pain, sputum, wheezing, other Cardiovascular: reports: chest pain. denies: palpitations, orthopnea, paroxysmal noc. dyspnea, edema, light headedness, other Gastrointestinal: denies: nausea, vomiting, abdominal pain, diarrhea, constipation, melena, hematochezia, other Genitourinary: denies: dysuria, frequency, incontinence, hematuria, retention, other Musculoskeletal: denies: neck pain, shoulder pain, arm pain, back pain, hand pain, leg pain, foot pain, other Skin: denies: rash, lesions, carlos enrique, bruising, other Hospitalist Exam Vitals: Vital Signs (12 hours) Temp Pulse Resp BP BP Pulse Ox 10/02/20 09:54 73 22 H 185/107 H 100 10/02/20 09:50 71 20 185/107 H 100 10/02/20 08:50 98 F 72 20 202/87 H 100 10/02/20 07:35 98 F 69 20 193/94 H 100 10/02/20 07:00 98 F 59 L 17 185/87 H 100 General Appearance: NAD, awake alert General - other findings: On BiPAP Eye: PERRL, anicteric sclera ENT: normocephalic atraumatic, no oropharyngeal lesions Neck: supple, symmetric, no JVD, no thyromegaly Heart: RRR, no murmur, no gallops, no rubs Respiratory - other findings: Bilateral basilar rales noted, air entry reduced both side, wheezing heard Gastrointestinal: soft, non-tender, non-distended, normal bowel sounds Gastrointestinal - other findings: Obesity noted Extremities: no cyanosis, no clubbing, 1+ LE edema Skin: normal turgor, no lesions Neurological: no focal deficits Musculoskeletal: normal tone, normal strength Psychiatric: normal affect, normal behavior, A&O x 3 Hospitalist Results Result Diagrams: 10/02/20 02:18 10/02/20 02:18 Lab results: Laboratory Last Values WBC 11.8 thou/uL (4.8-10.8) H 10/02/20 02:18 RBC 3.86 mill/uL (4.20-5.40) L 10/02/20 02:18 Hgb 10.5 g/dL (12.0-16.0) L 10/02/20 02:18 Hct 32.9 % (36.0-47.0) L 10/02/20 02:18 MCV 85.4 fL (78.0-98.0) 10/02/20 02:18 MCH 27.3 pg (27.0-31.0) 10/02/20 02:18 MCHC 31.9 g/dL (32.0-36.0) L 10/02/20 02:18 RDW 15.4 % (11.5-14.5) H 10/02/20 02:18 Plt Count 150 thou/uL (130-400) 10/02/20 02:18 MPV 9.6 fL (7.4-10.4) 10/02/20 02:18 Neutrophils % 84.9 % (42.0-75.0) H 10/02/20 02:18 Lymphocytes % 7.1 % (21.0-51.0) L 10/02/20 02:18 Monocytes % 6.5 % (0.0-10.0) 10/02/20 02:18 Eosinophils % 1.3 % (0.0-10.0) 10/02/20 02:18 Basophils % 0.3 % (0.0-1.0) 10/02/20 02:18 Neutrophils # 10.0 thou/uL (1.40-6.50) H 10/02/20 02:18 Lymphocytes # 0.8 thou/uL (1.20-3.40) L 10/02/20 02:18 Monocytes # 0.8 thou/uL (0.11-0.59) H 10/02/20 02:18 Eosinophils # 0.1 thou/uL (0.0-0.7) 10/02/20 02:18 Basophils # 0.0 thou/uL (0.0-0.2) 10/02/20 02:18 D-Dimer 3.17 *mcg/mL (0.27-0.43) H 10/02/20 02:20 Specimen Type ARTERIAL 10/02/20 02:25 Puncture Site LRA 10/02/20 02:25 Bicarbonate Actual 19.9 mEq/L (22-28) L 10/02/20 02:25 ABG pH 7.38 (7.35-7.45) 10/02/20 02:25 ABG pCO2 34.6 mmHg (35.0-45.0) L 10/02/20 02:25 ABG pO2 227.0 mmHg (> 80.0) H 10/02/20 02:25 ABG O2 Sat (Measured) 98.9 % (94.0-98.0) H 10/02/20 02:25 ABG O2 Content 15.0 vol% (18.0-21.0) L 10/02/20 02:25 ABG Base Excess -4.7 mEq/L (-2.0 to +3.0) L 10/02/20 02:25 ABG Hematocrit 31.0 % (36.0-47.0) L 10/02/20 02:25 ABG Hemoglobin 10.5 g/dL (12.0-16.0) L 10/02/20 02:25 ABG Oxyhemoglobin 97.7 % (94.0-98.0) 10/02/20 02:25 ABG Carboxyhemoglobin 0.2 gm% (0.0-3.0) 10/02/20 02:25 ABG Methemoglobin 1.00 gm% (0.04-1.52) 10/02/20 02:25 ABG Deoxyhemoglobin 1.1 % (0.0-2.9) 10/02/20 02:25 Joey Test POSITIVE 10/02/20 02:25 A-a O2 Gradient 86.250 mmHg (0-20) H 10/02/20 02:25 Sodium 138 mmol/L (135-148) 10/02/20 02:25 Potassium 3.56 mmol/L (3.70-5.30) L 10/02/20 02:25 Chloride 109 mmol/L (98-106) H 10/02/20 02:25 Ionized Calcium 1.16 mmol/L (1.12-1.30) 10/02/20 02:25 Mode of Support BIPAP +01/0410/02/20 02:25 Spontaneous Rate 26 min 10/02/20 02:25 Inspired O2 50 % 10/02/20 02:25 Inspiratory Time 0.90 sec 10/02/20 02:25 Spontaneous Tidal Vol 690 ml 10/02/20 02:25 Peak Inspir Pressure 16 cmH2O 10/02/20 02:25 Pressure Support 8 cmH2O 10/02/20 02:25 PEEP or CPAP 8.0 cmH2O 10/02/20 02:25 Sodium 138 mmol/L (136-145) 10/02/20 02:18 Potassium 3.8 mmol/L (3.5-5.1) 10/02/20 02:18 Chloride 106 mmol/L (98-107) 10/02/20 02:18 Carbon Dioxide 22 mmol/L (23-31) L 10/02/20 02:18 Anion Gap 14 mmol/L (10-20) 10/02/20 02:18 BUN 20 mg/dL (9.8-20.1) 10/02/20 02:18 Creatinine 1.93 mg/dL (0.6-1.1) H 10/02/20 02:18 Estimated GFR (MDRD) 26 10/02/20 02:18 Glucose 196 mg/dL (80-115) H 10/02/20 02:18 Lactic Acid 0.8 mmol/L (0.5-2.2) 10/02/20 02:18 Calcium 8.4 mg/dL (7.8-10.44) 10/02/20 02:18 Total Bilirubin 0.5 mg/dL (0.2-1.2) 10/02/20 02:18 AST 14 U/L (5-34) 10/02/20 02:18 ALT 14 U/L (8-55) 10/02/20 02:18 Alkaline Phosphatase 178 U/L (40-110) H 10/02/20 02:18 Creatine Kinase 27 U/L (29-168) L 10/02/20 02:18 CK-MB (CK-2) 1.5 ng/mL (0-6.6) 10/02/20 02:10 Troponin I 0.065 ng/mL (< 0.028) H 10/02/20 02:10 B-Natriuretic Peptide 814.9 pg/mL (0-100) H 10/02/20 02:18 Serum Total Protein 6.5 g/dL (5.8-8.1) 10/02/20 02:18 Albumin 3.0 g/dL (3.4-4.8) L 10/02/20 02:18 Globulin 3.5 g/dL (2.4-3.5) 10/02/20 02:18 Albumin/Globulin Ratio 0.9 g/dL (1.2-2.2) L 10/02/20 02:18 Urine Color Light-Yellow (Yellow) 10/02/20 04:00 Urine Clarity Clear (Clear) 10/02/20 04:00 Urine pH 7.0 (5.0-9.0) 10/02/20 04:00 Ur Specific [place] 1.019 (1.002-1.036) 10/02/20 04:00 Urine Protein 300 mg/dL (Neg-Trace) A 10/02/20 04:00 Urine Glucose (UA) 100 mg/dL (Negative) A 10/02/20 04:00 Urine Ketones Negative mg/dL (Negative) 10/02/20 04:00 Urine Blood 1+ (Negative) A 10/02/20 04:00 Urine Nitrite Negative (Negative) 10/02/20 04:00 Urine Bilirubin Negative (Negative) 10/02/20 04:00 Urine Urobilinogen Normal mg/dL (Less than 2) 10/02/20 04:00 Ur Leukocyte Esterase Negative Say/uL (Negative) 10/02/20 04:00 Urine RBC 0-3 HPF (0-3) 10/02/20 04:00 Urine WBC 0-3 HPF (0-3) 10/02/20 04:00 Ur Squamous Epith Cells 0-3 HPF (0-3) 10/02/20 04:00 Urine Bacteria None Seen HPF (None Seen) 10/02/20 04:00 Influenza A RNA INAAT Not Detected (NotDetected) 10/02/20 02:40 Influenza B RNA INAAT Not Detected (NotDetected) 10/02/20 02:40 SARS-CoV-2 Rap RNA(RT-PCR) DETECTED (NotDetected) A* 10/02/20 02:40 Additional comment: EKG showing Atrial fibrillation with controlled ventricular response nonspecific ST-T changes Chest x-ray Status: image reviewed by me Additional Comments: Bilateral pleural effusion, interstitial infiltration, cardiomegaly Hospitalist H&P A/P (1) Acute on chronic diastolic heart failure Code(s): I50.33 - ACUTE ON CHRONIC DIASTOLIC (CONGESTIVE) HEART FAILURE Status : Acute Assessment and Plan: Patient will be given Lasix 40 mg IV twice daily, patient had echocardiography about a year ago, cardiology will be consulted, will monitor renal function and electrolytes, (2) Acute respiratory failure with hypoxia Code(s): J96.01 - ACUTE RESPIRATORY FAILURE WITH HYPOXIA Status: Acute Assessment and Plan: Currently patient is on BiPAP, will wean off BiPAP as tolerated and patient will continue her home CPAP machine while in hospital, continue oxygen to maintain saturation above 92% (3) [id number] kidney injury Code(s): N17.9 - ACUTE KIDNEY FAILURE, UNSPECIFIED; N18.9 - CHRONIC KIDNEY DISEASE, UNSPECIFIED Status: Acute Qualifiers: Chronic kidney disease stage: stage 3 (moderate) Assessment and Plan: Patient has renal function baseline CKD stage III currently in CKD stage IV, will monitor renal function (4) Bipolar disorder Code(s): F31.9 - BIPOLAR DISORDER, UNSPECIFIED Status: Chronic Qualifiers: Active/Remission status: remission status unspecified Qualified Code(s): F31.9 - Bipolar disorder, unspecified Assessment and Plan: Continue her home medication including risperidone (5) COPD (chronic obstructive pulmonary disease) Status: Acute Qualifiers: COPD type: COPD with acute exacerbation Qualified Code(s): J44.1 - Chronic obstructive pulmonary disease with (acute) exacerbation (6) COPD with exacerbation Code(s): J44.1 - CHRONIC OBSTRUCTIVE PULMONARY DISEASE W (ACUTE) EXACERBATION Status: Acute Assessment and Plan: Continue DuoNeb every 6 hourly, Dulera 2 puff inhalation twice daily, will consult pulmonology, continue BiPAP and oxygen (7) COVID-19 Code(s): U07.1 - COVID-19 Status: Acute Assessment and Plan: Patient was positive during previous admission, currently she is still positive, continue vitamin supplementation, at this point will avoid dexamethasone given patient was given during previous admission (8) Restless leg syndrome Status: Chronic Assessment and Plan: Continue her home medication ropinirole and gabapentin (9) A-fib Code(s): I48.91 - UNSPECIFIED ATRIAL FIBRILLATION Status: Chronic Qualifiers: Atrial fibrillation type: persistent (not longstanding) Qualified Code(s): I48.19 - Other persistent atrial fibrillation; I48.1 - Persistent atrial fibrillation Assessment and Plan: Currently rate controlled, continue Coreg, cardiology consulted, chronic anticoagulation will defer to them (10) Anemia Code(s): D64.9 - ANEMIA, UNSPECIFIED Status: Chronic Qualifiers: Anemia type: due to chronic kidney disease Assessment and Plan: Likely related with kidney insufficiency, will start ferrous sulfate 325 mg p.o. daily (11) CAD (coronary artery disease) Code(s): I25.10 - ATHSCL HEART DISEASE OF [place] CORONARY ARTERY W/O ANG PCTRS Status: Chronic Qualifiers: Coronary Disease-Associated Artery/Lesion type: [place] artery [place] vs. transplanted heart: [place] heart Associated angina: without angina Qualified Code(s): I25.10 - Atherosclerotic heart disease of [place] coronary artery without angina pectoris (12) CKD (chronic kidney disease) stage 3, GFR 30-59 ml/min Code(s): N18.3 - CHRONIC KIDNEY DISEASE, STAGE 3 (MODERATE) * DO NOT USE * Status: Chronic Qualifiers: Chronic kidney disease stage 3 subtype: stage 3a (GFR 45-59) Qualified Code(s): N18.31 - Chronic kidney disease, stage 3a (13) Diabetes mellitus type 2, uncontrolled Code(s): E11.65 - TYPE 2 DIABETES MELLITUS WITH HYPERGLYCEMIA Status: Chronic Qualifiers: Glycemic state: with hyperglycemia Qualified Code(s): E11.65 - Type 2 diabetes mellitus with hyperglycemia Assessment and Plan: Resume her home insulin and insulin as per sliding scale, diabetic diet (14) HTN (hypertension) Code(s): I10 - ESSENTIAL (PRIMARY) HYPERTENSION Status: Chronic Qualifiers: Hypertension type: essential hypertension Qualified Code(s): I10 - Essential (primary) hypertension Assessment and Plan: We will resume her blood pressure medication while in hospital and adjust as needed basis, use as needed antihypertensive medication as well (15) History of CVA (cerebrovascular accident) Code(s): Z86.73 - PRSNL HX OF TIA (TIA), AND CEREB INFRC W/O RESID DEFICITS Status: Chronic Assessment and Plan: Continue PT OT (16) Hx of CABG Status: Chronic (17) Interstitial pneumonia Code(s): J84.9 - INTERSTITIAL PULMONARY DISEASE, UNSPECIFIED Status: Suspected Assessment and Plan: Continue antibiotic cefepime 1 g every 12 hourly based on renal dose, (18) Type 2 myocardial infarction Code(s): I21.A1 - MYOCARDIAL INFARCTION TYPE 2 Status: Acute Assessment and Plan: Do serial troponin, continue aspirin, cardiology consulted, monitor on telemetry (19) Tobacco abuse Code(s): Z72.0 - TOBACCO USE Status: Chronic Assessment and Plan: Counseling provided Plan: Patient will be admitted to IMCU, cardiology and pulmonology will be consulted Continue BiPAP Wean off BiPAP as tolerated Can resume her home medication Continue empiric antibiotic therapy with cefepime for suspected secondary bacterial infection
[2020-10-02] MEDS ORDERED: Heparin 10,000 UNITS/ 10 ML VIAL ONE (13:17)
[2020-10-02] MEDS ORDERED: HumaLOG 300 UNITS/3 ML VIAL ONE (13:18)
[2020-10-02 13:36] LABS: Troponin I 0.038 ng/mL (< 0.028)
[2020-10-02] MEDS ORDERED: hydrALAZINE 25 MG TAB ONE ×2 (13:50→21:48)
[2020-10-02] MEDS ORDERED: Furosemide 40 MG/4 ML VIAL ONE (13:50)
[2020-10-02] MEDS: HumaLOG 300 UNITS/3 ML VIAL SC PRN ×2 (14:02→17:24)
[2020-10-02] MEDS: Furosemide 40 MG/4 ML VIAL SLOW IVP SCH (14:10)
[2020-10-02] MEDS: hydrALAZINE 25 MG TAB PO SCH ×2 (14:11→22:14)
[2020-10-02] MEDS: Heparin 5,000 UNITS/ML VIAL SC SCH ×3 (14:37→23:36)
[2020-10-02 19:53] LABS: Troponin I 0.046 ng/mL (< 0.028)
[2020-10-02] MEDS ORDERED: Cefepime 1 GM in Sodium Chloride 0.9% 100 ML IVPB SCH (21:00)
[2020-10-02] MEDS ORDERED: Non-Formulary Item 1 EACH (Carvedilol [Coreg] 12.5 MG Tablet) PO SCH (21:00)
[2020-10-02] MEDS ORDERED: Non-Formulary Item 1 EACH (Atorvastatin Calcium [Atorvastatin Calcium] 80 MG Tablet) PO SCH (21:00)
[2020-10-02] MEDS ORDERED: Donepezil HCl 5 MG TAB PO SCH (21:00)
[2020-10-02] MEDS ORDERED: Gabapentin 300 MG CAP PO SCH (21:00)
[2020-10-02] MEDS ORDERED: Carvedilol 6.25 MG TAB PO SCH (21:00)
[2020-10-02] MEDS ORDERED: rOPINIRole HCl 1 MG TAB PO SCH (21:00)
[2020-10-02] MEDS ORDERED: Doxycycline 100 MG CAP PO SCH (21:00)
[2020-10-02] MEDS ORDERED: Insulin Glargine 20 UNITS in Pre-Filled Syringe 1 EACH SC SCH (21:00)
[2020-10-02] MEDS ORDERED: Atorvastatin Calcium 40 MG TAB PO SCH (21:00)
[2020-10-02] MEDS ORDERED: Cholecalciferol 1,000 UNITS (25 MCG) TAB PO SCH (21:00)
[2020-10-02] MEDS ORDERED: risperiDONE 0.25 MG TAB PO SCH (21:00)
[2020-10-02] MEDS ORDERED: Cefepime 1 GM VIAL ONE (21:48)
[2020-10-02] MEDS ORDERED: Labetalol HCl 100 MG/20 ML VIAL ONE (23:49)
[2020-10-02] MEDS: Labetalol HCl 100 MG/20 ML VIAL SLOW IVP PRN (23:55)
[2020-10-03] MEDS: Mometasone 200 MCG/Formoterol 5 MCG 120 PUFF INHALER INH SCH ×2 (00:03→05:27)
[2020-10-03] MEDS: Ipratropium/Albuterol Sulfate 4 GM AER IH SCH ×3 (00:04→10:22)
[2020-10-03 03:40] VITALS: BMI 40.6
[2020-10-03] MEDS: Heparin 5,000 UNITS/ML VIAL SC SCH ×3 (03:55→13:59)
[2020-10-03] MEDS: Furosemide 40 MG/4 ML VIAL SLOW IVP SCH ×2 (05:25→13:59)
[2020-10-03 05:44] LABS: #Lymphocytes 0.7 thou/uL (1.20-3.40); #Monocytes 0.6 thou/uL (0.11-0.59); #Neutrophils 7.8 thou/uL (1.40-6.50); %Basophils 0.1 % (0.0-1.0); %Eosinophils 0.1 % (0.0-10.0); %Lymphocytes 8.1 % (21.0-51.0); %Monocytes 6.5 % (0.0-10.0); %Neutrophils 85.2 % (42.0-75.0); Mean Corpuscular HGB CONC 32.2 g/dL (32.0-36.0); Mean Corpuscular Hemoglobin 27.9 pg (27.0-31.0); Mean Corpuscular Volume 86.9 fL (78.0-98.0); Mean Platelet Volume 9.4 fL (7.4-10.4); Platelet Count 132 thou/uL (130-400); Red Blood Cell (RBC) Count 3.21 mill/uL (4.20-5.40); White Blood Cell (WBC) Count 9.1 thou/uL (4.8-10.8)
[2020-10-03] MEDS: HumaLOG 300 UNITS/3 ML VIAL SC PRN (05:47)
[2020-10-03] MEDS: Labetalol HCl 100 MG/20 ML VIAL SLOW IVP PRN (05:48)
[2020-10-03 06:03] LABS: ALT (SGPT) 9 U/L (8-55); AST (SGOT) 7 U/L (5-34); Albumin 2.5 g/dL (3.4-4.8); Alkaline Phosphatase 137 U/L (40-110); Anion Gap 14 mmol/L (10-20); BUN (Urea Nitrogen) 25 mg/dL (9.8-20.1); Bilirubin, Total 0.2 mg/dL (0.2-1.2); Calc. Creatinine Clearance 46 mL/min (70-130); Calcium 7.8 mg/dL (7.8-10.44); Carbon Dioxide 21 mmol/L (23-31); Chloride 105 mmol/L (98-107); Globulin 2.8 g/dL (2.4-3.5); Glucose 383 mg/dL (80-115); Potassium 4.1 mmol/L (3.5-5.1); Protein, Total 5.3 g/dL (5.8-8.1); Sodium 136 mmol/L (136-145)
[2020-10-03] MEDS ORDERED: Amlodipine 5 MG TAB PO SCH (09:00)
[2020-10-03] MEDS ORDERED: FLUoxetine HCl 20 MG CAP PO SCH (09:00)
[2020-10-03] MEDS ORDERED: Non-Formulary Item 1 EACH (Ferrous Sulfate [Ferrous Sulfate] 325 MG Tab) PO SCH (09:00)
[2020-10-03] MEDS ORDERED: Insulin Glargine 20 UNITS in Pre-Filled Syringe 1 EACH SC SCH (09:00)
[2020-10-03] MEDS ORDERED: Non-Formulary Item 1 EACH (Fluoxetine Hcl [Fluoxetine Hcl] 20 MG Tablet) PO SCH (09:00)
[2020-10-03] MEDS ORDERED: Non-Formulary Item 1 EACH (Isosorbide Dinitrate [Isosorbide Dinitrate] 30 MG Tablet) PO SCH (09:00)
[2020-10-03] MEDS ORDERED: Isosorbide Dinitrate 20 MG TAB PO SCH (09:00)
[2020-10-03] MEDS ORDERED: Enoxaparin Sodium 40 MG/0.4 ML SYRINGE SC SCH (09:00)
[2020-10-03] MEDS ORDERED: Amiodarone 200 MG TAB PO SCH (09:00)
[2020-10-03] MEDS ORDERED: Ferrous Sulfate 325 MG TAB PO SCH (09:00)
[2020-10-03] MEDS ORDERED: Zinc Sulfate 220 MG CAP PO SCH (09:00)
[2020-10-03] MEDS ORDERED: Vitamin E 400 UNITS CAP PO SCH (09:00)
[2020-10-03] MEDS ORDERED: Ascorbic Acid 500 mg Chewable Tablet PO SCH (09:00)
[2020-10-03] MEDS ORDERED: Albuterol 200 PUFF (6.7GM INHALER) INH SCH (13:00)
[2020-10-03 16:23] VITALS: BP 198/83; TEMP 98.4
== END 2020-10-03 17:12 | disposition left against medical advice (07) | DRG 871 ==
LOC: ERS 01:57 → ERHOLD 03:49 → 2SW 10-03 01:55 → 2SE 10-03 09:27
PROVIDERS: ADMIT Student in an Organized Health Care Education/Training Program; ATTEND Internal Medicine
PROC: 5A09357 Assistance with Respiratory Ventilation, Less than 24 Consecutive Hours, Continuous Positive Airway Pressure (ICD-10-PCS; principal; 2020-10-02)
PROC: 8E0ZXY6 Isolation (ICD-10-PCS; 2020-10-02)
DX: A41.9 Sepsis, unspecified organism (principal); U07.1 COVID-19; I50.33 Acute on chronic diastolic (congestive) heart failure; J96.01 Acute respiratory failure with hypoxia; I21.A1 Myocardial infarction type 2; I13.0 Hypertensive heart and chronic kidney disease with heart failure and stage 1 through stage 4 chronic kidney disease, or unspecified chronic kidney disease; N17.9 Acute kidney failure, unspecified; J44.1 Chronic obstructive pulmonary disease with (acute) exacerbation; I48.19 Other persistent atrial fibrillation; J84.9 Interstitial pulmonary disease, unspecified; E11.22 Type 2 diabetes mellitus with diabetic chronic kidney disease; F41.9 Anxiety disorder, unspecified; G30.9 Alzheimer's disease, unspecified; F02.80 Dementia in other diseases classified elsewhere, unspecified severity, without behavioral disturbance, psychotic disturbance, mood disturbance, and anxiety; D63.1 Anemia in chronic kidney disease; G25.81 Restless legs syndrome; I25.10 Atherosclerotic heart disease of native coronary artery without angina pectoris; E11.65 Type 2 diabetes mellitus with hyperglycemia; N18.31 Chronic kidney disease, stage 3a; F31.9 Bipolar disorder, unspecified; G47.33 Obstructive sleep apnea (adult) (pediatric); Z95.1 Presence of aortocoronary bypass graft; Z90.49 Acquired absence of other specified parts of digestive tract; Z90.710 Acquired absence of both cervix and uterus; Z95.5 Presence of coronary angioplasty implant and graft; Z87.891 Personal history of nicotine dependence; Z86.73 Personal history of transient ischemic attack (TIA), and cerebral infarction without residual deficits
CPT/HCPCS: 0240U; 36415; 36416; 36600; 71045; 80053; 81003; 81015; 82550; 82553; 82728; 82805; 83605; 83880; 84484; 85025; 85379; 86140; 87040; 87086; 93005; 94660; 96365; 96366; 96367; 96375; J0692; J0694; J1100; J1644; J1815; J1940; J3370; J3490

== ENCOUNTER 2020-12-23 18:25 | Emergency (ER) | payer MEDICARE, OTHER ==
[2020-12-23 19:09] LABS: #Eosinphils 0.2 thou/uL (0.0-0.7); #Lymphocytes 1.4 thou/uL (1.20-3.40); #Monocytes 0.5 thou/uL (0.11-0.59); #Neutrophils 5.1 thou/uL (1.40-6.50); %Basophils 0.3 % (0.0-1.0); %Lymphocytes 19.8 % (21.0-51.0); %Monocytes 7.1 % (0.0-10.0); %Neutrophils 69.7 % (42.0-75.0); Hemoglobin 9.6 g/dL (12.0-16.0); Mean Corpuscular HGB CONC 32.1 g/dL (32.0-36.0); Mean Corpuscular Hemoglobin 26.2 pg (27.0-31.0); Mean Corpuscular Volume 81.4 fL (78.0-98.0); Platelet Count 175 thou/uL (130-400); RBC Distribution Width 14.9 % (11.5-14.5); Red Blood Cell (RBC) Count 3.67 mill/uL (4.20-5.40); White Blood Cell (WBC) Count 7.3 thou/uL (4.8-10.8)
[2020-12-23 19:31] LABS: ALT (SGPT) 9 U/L (8-55); AST (SGOT) 11 U/L (5-34); Albumin 2.5 g/dL (3.4-4.8); Alkaline Phosphatase 154 U/L (40-110); Anion Gap 10 mmol/L (10-20); BUN (Urea Nitrogen) 15 mg/dL (9.8-20.1); Bilirubin, Total 0.3 mg/dL (0.2-1.2); Calc. Creatinine Clearance 0 mL/min (70-130); Calcium 8.8 mg/dL (7.8-10.44); Carbon Dioxide 25 mmol/L (23-31); Chloride 104 mmol/L (98-107); Glucose 228 mg/dL (80-115); Lipase 13 U/L (8-78); Potassium 3.7 mmol/L (3.5-5.1); Protein, Total 5.5 g/dL (5.8-8.1); Sodium 135 mmol/L (136-145)
[2020-12-23 20:40] LABS: Bacteria/HPF 4+ HPF (None Seen); Bilirubin Negative (Negative); Blood, Urine 1+ (Negative); Glucose, Urine (Dipstick) 300 mg/dL (Negative); Ketone, Urine Negative (Negative); Leukocyte 500 Leu/uL (Negative); Nitrite Negative (Negative); Protein, Urine (Dipstick) Greater than 600 mg/dL (Neg-Trace); Specific Gravity, Urine 1.021 (1.002-1.036); Squamous Epithelial None Seen HPF (0-3); Urobilinogen Normal mg/dL (Less than 2); WBC/HPF Greater than 50 HPF (0-3); pH, Urine 6.5 (5.0-9.0)
[2020-12-23 20:42] LABS: Clarity Cloudy (Clear)
== END 2020-12-23 21:41 | disposition home or self-care (01) ==
LOC: ERS 18:25
DX: N39.0 Urinary tract infection, site not specified (principal); I13.0 Hypertensive heart and chronic kidney disease with heart failure and stage 1 through stage 4 chronic kidney disease, or unspecified chronic kidney disease; I50.9 Heart failure, unspecified; N18.4 Chronic kidney disease, stage 4 (severe); E11.22 Type 2 diabetes mellitus with diabetic chronic kidney disease; J44.9 Chronic obstructive pulmonary disease, unspecified; F17.200 Nicotine dependence, unspecified, uncomplicated; Z79.01 Long term (current) use of anticoagulants; Z79.84 Long term (current) use of oral hypoglycemic drugs; Z79.899 Other long term (current) drug therapy; Z86.73 Personal history of transient ischemic attack (TIA), and cerebral infarction without residual deficits; Z86.16 Personal history of COVID-19
CPT/HCPCS: 36415; 80053; 81003; 81015; 83690; 85025; 99284

== ENCOUNTER 2021-01-27 13:23 | Inpatient (IN) | payer MEDICARE, OTHER ==
[2021-01-27] MEDS ORDERED: methylPREDNISolone Sod Succ/PF 125 MG/2 ML VIAL ONE (13:51)
[2021-01-27] MEDS ORDERED: Magnesium 2 GM/50 ML BAG (IN WATER) ONE (13:51)
[2021-01-27 13:58] LABS: #Eosinphils 0.1 thou/uL (0.0-0.7); #Lymphocytes 1.6 thou/uL (1.20-3.40); #Monocytes 0.6 thou/uL (0.11-0.59); #Neutrophils 6.2 thou/uL (1.40-6.50); %Basophils 0.3 % (0.0-1.0); %Eosinophils 0.9 % (0.0-10.0); %Lymphocytes 18.5 % (21.0-51.0); %Neutrophils 73.2 % (42.0-75.0); Hemoglobin 9.4 g/dL (12.0-16.0); Mean Corpuscular HGB CONC 32.8 g/dL (32.0-36.0); Mean Corpuscular Hemoglobin 26.5 pg (27.0-31.0); Mean Corpuscular Volume 80.7 fL (78.0-98.0); Mean Platelet Volume 9.7 fL (7.4-10.4); Platelet Count 197 thou/uL (130-400); Red Blood Cell (RBC) Count 3.54 mill/uL (4.20-5.40); White Blood Cell (WBC) Count 8.5 thou/uL (4.8-10.8)
[2021-01-27 14:05] LABS: Actual Bicarbonate (HCO3a) 25.3 mEq/L (22-28); Analyzer IN Cardio ER; Base Excess (BEa) 0.6 mEq/L (-2.0 to +3.0); CO2 Tension 40.9 mmHg (35.0-45.0); Calcium, Ionized (arterial) 1.19 mmol/L (1.12-1.30); Carboxyhemoglobin (COHb) 1.1 gm% (0.0-3.0); Hemoglobin (Hb) 9.8 g/dL (12.0-16.0); O2 Tension (PaO2), arterial 112.1 mmHg (> 80.0); Potassium - ABG Lab 3.74 mmol/L (3.70-5.30); pH, Arterial 7.41 (7.35-7.45)
[2021-01-27 14:13] LABS: ALV-art Gradient 50.675 mmHg (0-20); Puncture Site LRA
[2021-01-27 14:20] LABS: ALT (SGPT) 10 U/L (8-55); AST (SGOT) 14 U/L (5-34); Albumin 2.6 g/dL (3.4-4.8); Alkaline Phosphatase 154 U/L (40-110); Anion Gap 14 mmol/L (10-20); BUN (Urea Nitrogen) 21 mg/dL (9.8-20.1); Bilirubin, Total 0.2 mg/dL (0.2-1.2); Calc. Creatinine Clearance 0 mL/min (70-130); Calcium 8.3 mg/dL (7.8-10.44); Carbon Dioxide 23 mmol/L (23-31); Chloride 108 mmol/L (98-107); Globulin 2.5 g/dL (2.4-3.5); Glucose 190 mg/dL (80-115); Potassium 3.9 mmol/L (3.5-5.1); Protein, Total 5.1 g/dL (5.8-8.1); Sodium 141 mmol/L (136-145)
[2021-01-27] MEDS ORDERED: Nitroglycerin 0.4 MG TAB 1 EACH ONE (15:04)
[2021-01-27] MEDS ORDERED: Aspirin Chewable 81 MG TAB ONE (15:04)
[2021-01-27] MEDS ORDERED: Furosemide 40 MG/4 ML VIAL ONE (15:04)
[2021-01-27 16:45] LABS: SARS-CoV-2 NAA Rapid Test Not Detected (NotDetected)
[2021-01-27] MEDS ORDERED: Docusate Sodium 100 MG/10 ML UDCUP PO PRN (16:58)
[2021-01-27] MEDS ORDERED: HumaLOG 300 UNITS/3 ML VIAL SC PRN (16:59)
[2021-01-27] MEDS ORDERED: Dextrose 50% Abboject 50 ML SYRINGE SLOW IVP PRN (16:59)
[2021-01-27] MEDS ORDERED: Dextrose 5% in Water 1,000 ML IV PRN (16:59)
[2021-01-27] MEDS ORDERED: Albuterol Sulfate 2.5 mg/0.5 ml Neb NEB PRN (17:01)
[2021-01-27] MEDS: Mometasone 200 MCG/Formoterol 5 MCG 120 PUFF INHALER INH SCH (18:30)
[2021-01-27] MEDS: risperiDONE 0.25 MG TAB PO SCH (19:50)
[2021-01-27] MEDS ORDERED: Famotidine/PF 20 mg/2ml Vial SLOW IVP SCH (21:00)
[2021-01-27] MEDS ORDERED: Ondansetron ODT 4 MG TAB SL PRN (21:15)
[2021-01-27] MEDS ORDERED: Ondansetron PF 4 MG/2 ML Vial IVP PRN (21:15)
[2021-01-27] MEDS ORDERED: Acetaminophen 325 MG TAB PO PRN (21:15)
[2021-01-27 22:20] VITALS: BMI 40.1
[2021-01-27] MEDS: FLUoxetine HCl 20 MG CAP PO SCH (23:13)
[2021-01-27] MEDS: Gabapentin 300 MG CAP PO SCH (23:14)
[2021-01-27] MEDS: Atorvastatin Calcium 40 MG TAB PO SCH (23:14)
[2021-01-27] MEDS: hydrALAZINE 25 MG TAB PO SCH (23:14)
[2021-01-27] MEDS: rOPINIRole HCl 1 MG TAB PO SCH (23:15)
[2021-01-27] MEDS: Donepezil HCl 5 MG TAB PO SCH (23:15)
[2021-01-27] MEDS: Lantus 1000 UNITS/10 ML VIAL SC SCH (23:25)
[2021-01-27] MEDS: Heparin 5,000 UNITS/ML VIAL SC SCH (23:26)
[2021-01-28] MEDS: HumaLOG 300 UNITS/3 ML VIAL SC PRN ×5 (00:05→20:11)
[2021-01-28] MEDS: Mometasone 200 MCG/Formoterol 5 MCG 120 PUFF INHALER INH SCH ×2 (06:52→18:35)
[2021-01-28] MEDS ORDERED: Aspirin 81 mg Enteric Coated Tablet PO SCH (09:00)
[2021-01-28] MEDS ORDERED: Aspirin Chewable 81 MG TAB PO SCH (09:00)
[2021-01-28] MEDS ORDERED: Famotidine/PF 20 mg/2ml Vial SLOW IVP SCH (09:00)
[2021-01-28] MEDS: Metolazone 5 MG TAB PO SCH (09:12)
[2021-01-28] MEDS: Isosorbide Dinitrate 20 MG TAB PO SCH (09:12)
[2021-01-28] MEDS: FLUoxetine HCl 20 MG CAP PO SCH ×2 (09:12→20:06)
[2021-01-28] MEDS: Gabapentin 300 MG CAP PO SCH ×2 (09:12→20:51)
[2021-01-28] MEDS: hydrALAZINE 25 MG TAB PO SCH ×3 (09:12→20:06)
[2021-01-28] MEDS: Amiodarone 200 MG TAB PO SCH (09:13)
[2021-01-28] MEDS: Lantus 1000 UNITS/10 ML VIAL SC SCH ×2 (09:13→20:10)
[2021-01-28] MEDS: Heparin 5,000 UNITS/ML VIAL SC SCH (09:20)
[2021-01-28] MEDS ORDERED: hydrALAZINE 20 MG/ML VIAL SLOW IVP PRN (13:55)
[2021-01-28] MEDS: Furosemide 40 MG/4 ML VIAL SLOW IVP SCH (15:15)
[2021-01-28] MEDS: rOPINIRole HCl 1 MG TAB PO SCH (20:05)
[2021-01-28] MEDS: Atorvastatin Calcium 40 MG TAB PO SCH (20:05)
[2021-01-28] MEDS: risperiDONE 0.25 MG TAB PO SCH (20:06)
[2021-01-28] MEDS: Donepezil HCl 5 MG TAB PO SCH (20:06)
[2021-01-28] MEDS ORDERED: HumaLOG 300 UNITS/3 ML VIAL SC PRN (20:48)
[2021-01-29 02:55] LABS: #Lymphocytes 1.3 thou/uL (1.20-3.40); #Monocytes 0.8 thou/uL (0.11-0.59); #Neutrophils 8.1 thou/uL (1.40-6.50); %Basophils 0.2 % (0.0-1.0); %Eosinophils 0.4 % (0.0-10.0); %Lymphocytes 12.8 % (21.0-51.0); %Monocytes 7.3 % (0.0-10.0); %Neutrophils 79.4 % (42.0-75.0); Hemoglobin 8.9 g/dL (12.0-16.0); Mean Corpuscular HGB CONC 33.5 g/dL (32.0-36.0); Mean Corpuscular Hemoglobin 27.1 pg (27.0-31.0); Mean Platelet Volume 9.9 fL (7.4-10.4); Platelet Count 174 thou/uL (130-400); Red Blood Cell (RBC) Count 3.27 mill/uL (4.20-5.40); White Blood Cell (WBC) Count 10.2 thou/uL (4.8-10.8)
[2021-01-29 03:39] LABS: ALT (SGPT) Less than 7 U/L (8-55); AST (SGOT) 9 U/L (5-34); Albumin 2.3 g/dL (3.4-4.8); Alkaline Phosphatase 122 U/L (40-110); Anion Gap 8 mmol/L (10-20); BUN (Urea Nitrogen) 29 mg/dL (9.8-20.1); Bilirubin, Total Less than 0.2 mg/dL (0.2-1.2); Calc. Creatinine Clearance 40 mL/min (70-130); Calcium 8.8 mg/dL (7.8-10.44); Carbon Dioxide 26 mmol/L (23-31); Chloride 105 mmol/L (98-107); Globulin 2.6 g/dL (2.4-3.5); Glucose 135 mg/dL (80-115); Magnesium 1.9 mg/dL (1.6-2.6); Phosphorus 3.9 mg/dL (2.3-4.7); Potassium 3.6 mmol/L (3.5-5.1); Protein, Total 4.9 g/dL (5.8-8.1); Sodium 135 mmol/L (136-145)
[2021-01-29] MEDS: Furosemide 40 MG/4 ML VIAL SLOW IVP SCH ×2 (05:45→15:28)
[2021-01-29] MEDS: Mometasone 200 MCG/Formoterol 5 MCG 120 PUFF INHALER INH SCH ×2 (06:43→19:29)
[2021-01-29] MEDS: Enoxaparin Sodium 30 MG/0.3 ML SYRINGE SC SCH (09:01)
[2021-01-29] MEDS: Isosorbide Dinitrate 20 MG TAB PO SCH (09:01)
[2021-01-29] MEDS: Lantus 1000 UNITS/10 ML VIAL SC SCH ×2 (09:01→20:44)
[2021-01-29] MEDS: Gabapentin 300 MG CAP PO SCH ×2 (09:02→20:42)
[2021-01-29] MEDS: hydrALAZINE 25 MG TAB PO SCH ×3 (09:02→20:43)
[2021-01-29] MEDS: Amiodarone 200 MG TAB PO SCH (09:02)
[2021-01-29] MEDS: FLUoxetine HCl 20 MG CAP PO SCH ×2 (09:02→20:44)
[2021-01-29] MEDS: Aspirin 81 mg Enteric Coated Tablet PO SCH (09:03)
[2021-01-29] MEDS: risperiDONE 0.25 MG TAB PO SCH (20:44)
[2021-01-29] MEDS: Donepezil HCl 5 MG TAB PO SCH (20:44)
[2021-01-29] MEDS: Atorvastatin Calcium 40 MG TAB PO SCH (20:44)
[2021-01-29] MEDS: Carvedilol 6.25 MG TAB PO SCH (20:44)
[2021-01-29] MEDS: rOPINIRole HCl 1 MG TAB PO SCH (20:51)
[2021-01-30 03:45] LABS: Anion Gap 9 mmol/L (10-20); BUN (Urea Nitrogen) 27 mg/dL (9.8-20.1); Calc. Creatinine Clearance 38 mL/min (70-130); Calcium 9.2 mg/dL (7.8-10.44); Carbon Dioxide 27 mmol/L (23-31); Chloride 104 mmol/L (98-107); Glucose 80 mg/dL (80-115); Sodium 136 mmol/L (136-145)
[2021-01-30 04:07] VITALS: TEMP 98.3
[2021-01-30] MEDS: Furosemide 40 MG/4 ML VIAL SLOW IVP SCH ×2 (05:41→13:51)
[2021-01-30] MEDS ORDERED: Ferrous Sulfate 325 MG TAB PO SCH (08:00)
[2021-01-30] MEDS: Isosorbide Dinitrate 20 MG TAB PO SCH (08:13)
[2021-01-30] MEDS: hydrALAZINE 25 MG TAB PO SCH ×2 (08:13→14:07)
[2021-01-30] MEDS: Gabapentin 300 MG CAP PO SCH (08:13)
[2021-01-30] MEDS: Metolazone 5 MG TAB PO SCH (08:13)
[2021-01-30] MEDS: Amiodarone 200 MG TAB PO SCH (08:13)
[2021-01-30] MEDS: Aspirin 81 mg Enteric Coated Tablet PO SCH (08:14)
[2021-01-30] MEDS: FLUoxetine HCl 20 MG CAP PO SCH (08:14)
[2021-01-30] MEDS: Carvedilol 6.25 MG TAB PO SCH (08:14)
[2021-01-30] MEDS: Enoxaparin Sodium 30 MG/0.3 ML SYRINGE SC SCH (08:17)
[2021-01-30] MEDS: Lantus 1000 UNITS/10 ML VIAL SC SCH (08:18)
[2021-01-30] MEDS: Mometasone 200 MCG/Formoterol 5 MCG 120 PUFF INHALER INH SCH (08:30)
[2021-01-30] MEDS ORDERED: Amlodipine 10 MG TAB PO SCH (09:00)
[2021-01-30 09:57] VITALS: BP 192/68
== END 2021-01-30 15:22 | disposition home health service (06) | DRG 291 ==
LOC: ERS 13:23 → ERHOLD 16:05 → IMCU/EMU 20:58
PROVIDERS: ADMIT Internal Medicine; ATTEND Internal Medicine
PROC: 5A09357 Assistance with Respiratory Ventilation, Less than 24 Consecutive Hours, Continuous Positive Airway Pressure (ICD-10-PCS; principal; 2021-01-27)
DX: I13.0 Hypertensive heart and chronic kidney disease with heart failure and stage 1 through stage 4 chronic kidney disease, or unspecified chronic kidney disease (principal); I50.33 Acute on chronic diastolic (congestive) heart failure; J96.21 Acute and chronic respiratory failure with hypoxia; N18.4 Chronic kidney disease, stage 4 (severe); J44.1 Chronic obstructive pulmonary disease with (acute) exacerbation; Z68.41 Body mass index [BMI] 40.0-44.9, adult; E66.01 Morbid (severe) obesity due to excess calories; E11.22 Type 2 diabetes mellitus with diabetic chronic kidney disease; G31.84 Mild cognitive impairment of uncertain or unknown etiology; G47.33 Obstructive sleep apnea (adult) (pediatric); E11.65 Type 2 diabetes mellitus with hyperglycemia; I25.10 Atherosclerotic heart disease of native coronary artery without angina pectoris; G25.81 Restless legs syndrome; F17.210 Nicotine dependence, cigarettes, uncomplicated; Z20.822 Contact with and (suspected) exposure to COVID-19; I48.0 Paroxysmal atrial fibrillation; Z88.5 Allergy status to narcotic agent; Z90.710 Acquired absence of both cervix and uterus; Z95.1 Presence of aortocoronary bypass graft; Z79.82 Long term (current) use of aspirin; Z79.4 Long term (current) use of insulin; Z79.899 Other long term (current) drug therapy; Z86.73 Personal history of transient ischemic attack (TIA), and cerebral infarction without residual deficits
CPT/HCPCS: 0240U; 36415; 36416; 36600; 51702; 71045; 80048; 80053; 82805; 83605; 83735; 83880; 84100; 84484; 85025; 93005; 93306; 93798; 94640; 94660; 96365; 96375; J1650; J1815; J1940; J2930; J3475; J7620; S0028

== ENCOUNTER 2021-05-01 16:12 | Emergency (ER) | payer MEDICARE, OTHER | END 2021-05-01 19:29 | disposition left against medical advice (07) | LOC: ERS 16:12 | DX: Z53.21 Procedure and treatment not carried out due to patient leaving prior to being seen by health care provider (principal) ==

== ENCOUNTER 2021-05-30 22:43 | Inpatient (IN) | payer MEDICARE, OTHER ==
[2021-05-30 23:17] LABS: #Eosinphils 0.2 thou/uL (0.0-0.7); #Lymphocytes 0.7 thou/uL (1.20-3.40); #Monocytes 0.7 thou/uL (0.11-0.59); #Neutrophils 11.8 thou/uL (1.40-6.50); %Eosinophils 1.4 % (0.0-10.0); %Neutrophils 88.6 % (42.0-75.0); Hemoglobin 10.4 g/dL (12.0-16.0); Mean Corpuscular HGB CONC 33.2 g/dL (32.0-36.0); Mean Corpuscular Hemoglobin 26.8 pg (27.0-31.0); Mean Corpuscular Volume 80.8 fL (78.0-98.0); Mean Platelet Volume 9.5 fL (7.4-10.4); Platelet Count 213 thou/uL (130-400); RBC Distribution Width 16.8 % (11.5-14.5); Red Blood Cell (RBC) Count 3.88 mill/uL (4.20-5.40); White Blood Cell (WBC) Count 13.3 thou/uL (4.8-10.8)
[2021-05-30 23:30] LABS: ALT (SGPT) 11 U/L (8-55); AST (SGOT) 18 U/L (5-34); Albumin 3.1 g/dL (3.4-4.8); Alkaline Phosphatase 151 U/L (40-110); Anion Gap 14 mmol/L (10-20); BUN (Urea Nitrogen) 22 mg/dL (9.8-20.1); Bilirubin, Total 0.3 mg/dL (0.2-1.2); Calc. Creatinine Clearance 0 mL/min (70-130); Calcium 9.2 mg/dL (7.8-10.44); Carbon Dioxide 19 mmol/L (23-31); Chloride 111 mmol/L (98-107); Glucose 151 mg/dL (80-115); Potassium 4.5 mmol/L (3.5-5.1); Protein, Total 6.1 g/dL (5.8-8.1); Sodium 139 mmol/L (136-145)
[2021-05-31] MEDS ORDERED: Furosemide 40 MG/4 ML VIAL ONE (00:33)
[2021-05-31 01:03] LABS: SARS-CoV-2 NAA Rapid Test Not Detected (NotDetected)
[2021-05-31] MEDS ORDERED: Acetaminophen 325 MG TAB PO PRN (01:24)
[2021-05-31] MEDS ORDERED: Ondansetron ODT 4 MG TAB PO PRN (01:24)
[2021-05-31] MEDS ORDERED: Ondansetron PF 4 MG/2 ML Vial IVP PRN (01:24)
[2021-05-31] MEDS ORDERED: Acetaminophen 650 MG Suppository PR PRN (01:24)
[2021-05-31 03:50] VITALS: BMI 38.9
[2021-05-31 04:08] LABS: #Lymphocytes 0.2 thou/uL (1.20-3.40); #Monocytes 0.1 thou/uL (0.11-0.59); #Neutrophils 9.1 thou/uL (1.40-6.50); %Basophils 0.1 % (0.0-1.0); %Lymphocytes 2.1 % (21.0-51.0); %Monocytes 0.9 % (0.0-10.0); %Neutrophils 96.9 % (42.0-75.0); Mean Corpuscular HGB CONC 31.8 g/dL (32.0-36.0); Mean Corpuscular Hemoglobin 26.1 pg (27.0-31.0); Mean Corpuscular Volume 82.1 fL (78.0-98.0); Mean Platelet Volume 10.4 fL (7.4-10.4); Platelet Count 165 thou/uL (130-400); RBC Distribution Width 16.9 % (11.5-14.5); Red Blood Cell (RBC) Count 3.44 mill/uL (4.20-5.40); White Blood Cell (WBC) Count 9.4 thou/uL (4.8-10.8)
[2021-05-31] MEDS: Azithromycin 500 MG in Sodium Chloride 0.9% 250 ML 250 ML IVPB SCH (04:22)
[2021-05-31] MEDS: Cefepime 2 GM in Sodium Chloride 0.9% 100 ML IVPB SCH (04:22)
[2021-05-31 04:24] LABS: Anion Gap 14 mmol/L (10-20); BUN (Urea Nitrogen) 22 mg/dL (9.8-20.1); Calc. Creatinine Clearance 31 mL/min (70-130); Carbon Dioxide 22 mmol/L (23-31); Chloride 107 mmol/L (98-107); Glucose 198 mg/dL (80-115); Potassium 4.3 mmol/L (3.5-5.1); Sodium 139 mmol/L (136-145)
[2021-05-31 07:14] LABS: Troponin I 0.036 ng/mL (< 0.028)
[2021-05-31] MEDS: Furosemide 40 MG/4 ML VIAL SLOW IVP SCH (08:53)
[2021-05-31] MEDS ORDERED: Enoxaparin Sodium 30 MG/0.3 ML SYRINGE SC SCH (09:00)
[2021-05-31] MEDS ORDERED: methylPREDNISolone Sod Succ 40 MG VIAL IVP SCH (09:00)
[2021-05-31] MEDS ORDERED: Levalbuterol HCl 1.25 MG/0.5 ML NEB NEB PRN (09:46)
[2021-05-31] MEDS ORDERED: Dextrose 5% in Water 1,000 ML IV PRN (09:48)
[2021-05-31] MEDS ORDERED: Dextrose 50% Abboject 50 ML SYRINGE SLOW IVP PRN (09:48)
[2021-05-31] MEDS: HumaLOG 300 UNITS/3 ML VIAL SC PRN ×2 (10:42→17:04)
[2021-05-31] MEDS: hydrALAZINE 25 MG TAB PO SCH ×2 (17:04→19:51)
[2021-05-31] MEDS: Carvedilol 6.25 MG TAB PO SCH (19:48)
[2021-05-31] MEDS ORDERED: Non-Formulary Item 1 EACH (Carvedilol [Coreg] 12.5 MG Tablet) PO SCH (21:00)
[2021-05-31] MEDS: Lantus 1000 UNITS/10 ML VIAL SC SCH (22:12)
[2021-06-01] MEDS: Azithromycin 500 MG in Sodium Chloride 0.9% 250 ML 250 ML IVPB SCH (01:08)
[2021-06-01] MEDS: Cefepime 2 GM in Sodium Chloride 0.9% 100 ML IVPB SCH (02:46)
[2021-06-01 03:39] LABS: #Lymphocytes 0.4 thou/uL (1.20-3.40); #Monocytes 0.6 thou/uL (0.11-0.59); %Eosinophils 0.1 % (0.0-10.0); %Lymphocytes 4.4 % (21.0-51.0); %Monocytes 7.6 % (0.0-10.0); %Neutrophils 87.9 % (42.0-75.0); Hemoglobin 9.4 g/dL (12.0-16.0); Mean Corpuscular HGB CONC 32.8 g/dL (32.0-36.0); Mean Corpuscular Hemoglobin 27.3 pg (27.0-31.0); Mean Platelet Volume 9.9 fL (7.4-10.4); Platelet Count 158 thou/uL (130-400); RBC Distribution Width 16.7 % (11.5-14.5); Red Blood Cell (RBC) Count 3.43 mill/uL (4.20-5.40)
[2021-06-01 04:09] LABS: Anion Gap 12 mmol/L (10-20); BUN (Urea Nitrogen) 38 mg/dL (9.8-20.1); Calc. Creatinine Clearance 28 mL/min (70-130); Calcium 8.7 mg/dL (7.8-10.44); Carbon Dioxide 21 mmol/L (23-31); Chloride 104 mmol/L (98-107); Glucose 171 mg/dL (80-115); Potassium 4.6 mmol/L (3.5-5.1); Sodium 132 mmol/L (136-145)
[2021-06-01] MEDS: Carvedilol 6.25 MG TAB PO SCH ×2 (09:38→22:04)
[2021-06-01] MEDS: Heparin 5,000 UNITS/ML VIAL SC SCH ×2 (09:39→22:05)
[2021-06-01] MEDS: Furosemide 40 MG/4 ML VIAL SLOW IVP SCH (09:39)
[2021-06-01] MEDS: hydrALAZINE 25 MG TAB PO SCH ×3 (09:39→22:05)
[2021-06-01] MEDS: predniSONE 20 MG TAB PO SCH (09:39)
[2021-06-01] MEDS: Lantus 1000 UNITS/10 ML VIAL SC SCH ×2 (09:44→22:05)
[2021-06-01] MEDS ORDERED: LIDOCAINE TOP PRN (12:48)
[2021-06-01] MEDS ORDERED: Docusate 100 MG CAP PO PRN (12:57)
[2021-06-01] MEDS ORDERED: Mometasone 200 MCG/Formoterol 5 MCG 120 PUFF INHALER INH SCH (13:15)
[2021-06-01] MEDS: HumaLOG 300 UNITS/3 ML VIAL SC PRN (18:38)
[2021-06-01] MEDS: Mometasone 200 MCG/Formoterol 5 MCG 120 PUFF INHALER INH SCH (19:17)
[2021-06-01] MEDS: Carvedilol 3.125 MG TAB PO SCH (22:03)
[2021-06-01] MEDS: Atorvastatin Calcium 40 MG TAB PO SCH (22:03)
[2021-06-01] MEDS: Gabapentin 300 MG CAP PO SCH (22:04)
[2021-06-01] MEDS: Donepezil HCl 5 MG TAB PO SCH (22:05)
[2021-06-02] MEDS: Cefepime 2 GM in Sodium Chloride 0.9% 100 ML IVPB SCH (03:26)
[2021-06-02] MEDS: Azithromycin 500 MG in Sodium Chloride 0.9% 250 ML 250 ML IVPB SCH (03:26)
[2021-06-02 04:32] LABS: Anion Gap 14 mmol/L (10-20); BUN (Urea Nitrogen) 42 mg/dL (9.8-20.1); Calc. Creatinine Clearance 29 mL/min (70-130); Carbon Dioxide 19 mmol/L (23-31); Chloride 102 mmol/L (98-107); Glucose 81 mg/dL (80-115); Potassium 4.5 mmol/L (3.5-5.1); Sodium 130 mmol/L (136-145)
[2021-06-02] MEDS: Mometasone 200 MCG/Formoterol 5 MCG 120 PUFF INHALER INH SCH ×2 (08:35→19:18)
[2021-06-02] MEDS ORDERED: rOPINIRole HCl 2 MG TAB PO SCH (09:00)
[2021-06-02] MEDS: Isosorbide Dinitrate 20 MG TAB PO SCH (10:41)
[2021-06-02] MEDS: predniSONE 20 MG TAB PO SCH (10:41)
[2021-06-02] MEDS: hydrALAZINE 25 MG TAB PO SCH ×3 (10:42→21:23)
[2021-06-02] MEDS: Gabapentin 300 MG CAP PO SCH ×2 (10:43→21:25)
[2021-06-02] MEDS: Carvedilol 3.125 MG TAB PO SCH ×2 (10:43→21:24)
[2021-06-02] MEDS: Amiodarone 200 MG TAB PO SCH (10:43)
[2021-06-02] MEDS: Amlodipine 10 MG TAB PO SCH (10:43)
[2021-06-02] MEDS: Aspirin 81 mg Enteric Coated Tablet PO SCH (10:43)
[2021-06-02] MEDS: Ferrous Sulfate 325 MG TAB PO SCH (10:44)
[2021-06-02] MEDS: Carvedilol 6.25 MG TAB PO SCH (10:47)
[2021-06-02] MEDS: Furosemide 40 MG/4 ML VIAL SLOW IVP SCH (10:49)
[2021-06-02] MEDS: Heparin 5,000 UNITS/ML VIAL SC SCH ×2 (10:49→21:25)
[2021-06-02] MEDS: Lantus 1000 UNITS/10 ML VIAL SC SCH ×2 (10:51→21:41)
[2021-06-02] MEDS: Azithromycin 250 MG TAB PO SCH (15:56)
[2021-06-02] MEDS: HumaLOG 300 UNITS/3 ML VIAL SC PRN ×2 (18:14→21:41)
[2021-06-02] MEDS: Donepezil HCl 5 MG TAB PO SCH (21:24)
[2021-06-02] MEDS: rOPINIRole HCl 2 MG TAB PO SCH (21:24)
[2021-06-02] MEDS: Atorvastatin Calcium 40 MG TAB PO SCH (21:24)
[2021-06-03] MEDS: Cefepime 2 GM in Sodium Chloride 0.9% 100 ML IVPB SCH (03:01)
[2021-06-03 04:04] LABS: #Lymphocytes 0.6 thou/uL (1.20-3.40); #Monocytes 0.6 thou/uL (0.11-0.59); #Neutrophils 5.4 thou/uL (1.40-6.50); %Basophils 0.6 % (0.0-1.0); %Eosinophils 0.2 % (0.0-10.0); %Lymphocytes 8.4 % (21.0-51.0); %Monocytes 8.7 % (0.0-10.0); %Neutrophils 82.2 % (42.0-75.0); Hemoglobin 8.7 g/dL (12.0-16.0); Mean Corpuscular HGB CONC 32.9 g/dL (32.0-36.0); Mean Corpuscular Hemoglobin 26.9 pg (27.0-31.0); Mean Corpuscular Volume 81.8 fL (78.0-98.0); Mean Platelet Volume 9.8 fL (7.4-10.4); Platelet Count 168 thou/uL (130-400); RBC Distribution Width 16.5 % (11.5-14.5); Red Blood Cell (RBC) Count 3.23 mill/uL (4.20-5.40); White Blood Cell (WBC) Count 6.5 thou/uL (4.8-10.8)
[2021-06-03 04:25] LABS: Anion Gap 12 mmol/L (10-20); BUN (Urea Nitrogen) 42 mg/dL (9.8-20.1); Calc. Creatinine Clearance 28 mL/min (70-130); Calcium 8.9 mg/dL (7.8-10.44); Carbon Dioxide 22 mmol/L (23-31); Chloride 102 mmol/L (98-107); Glucose 160 mg/dL (80-115); Potassium 4.8 mmol/L (3.5-5.1); Sodium 131 mmol/L (136-145)
[2021-06-03] MEDS: Mometasone 200 MCG/Formoterol 5 MCG 120 PUFF INHALER INH SCH ×2 (08:42→20:20)
[2021-06-03] MEDS: Aspirin 81 mg Enteric Coated Tablet PO SCH (09:12)
[2021-06-03] MEDS: Furosemide 40 MG TAB PO SCH (09:12)
[2021-06-03] MEDS: Gabapentin 300 MG CAP PO SCH ×2 (09:12→20:38)
[2021-06-03] MEDS: Ferrous Sulfate 325 MG TAB PO SCH (09:12)
[2021-06-03] MEDS: Isosorbide Dinitrate 20 MG TAB PO SCH (09:12)
[2021-06-03] MEDS: predniSONE 20 MG TAB PO SCH (09:13)
[2021-06-03] MEDS: hydrALAZINE 25 MG TAB PO SCH ×3 (09:13→20:37)
[2021-06-03] MEDS: Heparin 5,000 UNITS/ML VIAL SC SCH ×2 (09:14→20:38)
[2021-06-03] MEDS: Carvedilol 3.125 MG TAB PO SCH ×2 (09:14→20:38)
[2021-06-03] MEDS: Amiodarone 200 MG TAB PO SCH (09:14)
[2021-06-03] MEDS: Amlodipine 10 MG TAB PO SCH (09:15)
[2021-06-03] MEDS: Lantus 1000 UNITS/10 ML VIAL SC SCH ×3 (09:16→20:40)
[2021-06-03] MEDS: Azithromycin 250 MG TAB PO SCH (15:42)
[2021-06-03] MEDS: HumaLOG 300 UNITS/3 ML VIAL SC PRN ×2 (17:38→20:39)
[2021-06-03] MEDS: Atorvastatin Calcium 40 MG TAB PO SCH (20:37)
[2021-06-03] MEDS: Donepezil HCl 5 MG TAB PO SCH (20:37)
[2021-06-03] MEDS: rOPINIRole HCl 2 MG TAB PO SCH (20:38)
[2021-06-04 04:48] LABS: Anion Gap 10 mmol/L (10-20); BUN (Urea Nitrogen) 47 mg/dL (9.8-20.1); Calc. Creatinine Clearance 29 mL/min (70-130); Carbon Dioxide 24 mmol/L (23-31); Chloride 101 mmol/L (98-107); Glucose 215 mg/dL (80-115); Potassium 4.9 mmol/L (3.5-5.1); Sodium 130 mmol/L (136-145)
[2021-06-04] MEDS: Mometasone 200 MCG/Formoterol 5 MCG 120 PUFF INHALER INH SCH (07:39)
[2021-06-04 09:07] VITALS: TEMP 98.5
[2021-06-04] MEDS: Furosemide 40 MG TAB PO SCH (09:21)
[2021-06-04] MEDS: Ferrous Sulfate 325 MG TAB PO SCH (09:21)
[2021-06-04] MEDS: predniSONE 20 MG TAB PO SCH (09:21)
[2021-06-04] MEDS: hydrALAZINE 25 MG TAB PO SCH (09:21)
[2021-06-04] MEDS: Amlodipine 10 MG TAB PO SCH (09:22)
[2021-06-04] MEDS: Amiodarone 200 MG TAB PO SCH (09:22)
[2021-06-04] MEDS: Aspirin 81 mg Enteric Coated Tablet PO SCH (09:22)
[2021-06-04] MEDS: Gabapentin 300 MG CAP PO SCH (09:22)
[2021-06-04] MEDS: Isosorbide Dinitrate 20 MG TAB PO SCH (09:22)
[2021-06-04] MEDS: Lantus 1000 UNITS/10 ML VIAL SC SCH (09:23)
[2021-06-04] MEDS: Heparin 5,000 UNITS/ML VIAL SC SCH (09:23)
[2021-06-04] MEDS: Carvedilol 3.125 MG TAB PO SCH (09:23)
[2021-06-04 13:48] VITALS: BP 153/95
== END 2021-06-04 14:45 | disposition home or self-care (01) | DRG 193 ==
LOC: ERS 22:43 → IMCU/EMU 05-31 00:28
PROVIDERS: ADMIT Student in an Organized Health Care Education/Training Program; ATTEND Family Medicine
PROC: 5A09457 Assistance with Respiratory Ventilation, 24-96 Consecutive Hours, Continuous Positive Airway Pressure (ICD-10-PCS; principal; 2021-05-31)
DX: J15.9 Unspecified bacterial pneumonia (principal); J96.21 Acute and chronic respiratory failure with hypoxia; I50.33 Acute on chronic diastolic (congestive) heart failure; N17.9 Acute kidney failure, unspecified; J44.0 Chronic obstructive pulmonary disease with (acute) lower respiratory infection; N18.4 Chronic kidney disease, stage 4 (severe); I13.0 Hypertensive heart and chronic kidney disease with heart failure and stage 1 through stage 4 chronic kidney disease, or unspecified chronic kidney disease; I25.10 Atherosclerotic heart disease of native coronary artery without angina pectoris; E11.22 Type 2 diabetes mellitus with diabetic chronic kidney disease; F41.9 Anxiety disorder, unspecified; F31.9 Bipolar disorder, unspecified; F17.210 Nicotine dependence, cigarettes, uncomplicated; T38.0X5A Adverse effect of glucocorticoids and synthetic analogues, initial encounter; Z20.822 Contact with and (suspected) exposure to COVID-19; E11.65 Type 2 diabetes mellitus with hyperglycemia; I48.91 Unspecified atrial fibrillation; G25.81 Restless legs syndrome; Z86.16 Personal history of COVID-19; Z95.1 Presence of aortocoronary bypass graft; I25.2 Old myocardial infarction; Z86.73 Personal history of transient ischemic attack (TIA), and cerebral infarction without residual deficits; Z88.5 Allergy status to narcotic agent; Z88.2 Allergy status to sulfonamides; Z79.4 Long term (current) use of insulin; Z88.8 Allergy status to other drugs, medicaments and biological substances; Z79.82 Long term (current) use of aspirin; Z79.899 Other long term (current) drug therapy
CPT/HCPCS: 0240U; 36415; 36416; 71045; 80048; 80053; 82553; 83605; 83880; 84484; 85025; 87040; 93005; 94640; 96365; 96366; 96375; J0456; J0692; J1644; J1650; J1815; J1940; J1956; J2920; J3490; J7050; J7512; J7620

== ENCOUNTER 2021-06-06 23:57 | Emergency (ER) | payer MEDICARE, OTHER ==
[2021-06-07] MEDS ORDERED: Magnesium 2 GM/50 ML BAG (IN WATER) ONE (00:12)
[2021-06-07] MEDS ORDERED: methylPREDNISolone Sod Succ/PF 125 MG/2 ML VIAL ONE (00:12)
[2021-06-07 00:52] LABS: #Eosinphils 0.2 thou/uL (0.0-0.7); #Lymphocytes 1.7 thou/uL (1.20-3.40); #Monocytes 0.8 thou/uL (0.11-0.59); #Neutrophils 7.6 thou/uL (1.40-6.50); %Basophils 0.2 % (0.0-1.0); %Eosinophils 1.8 % (0.0-10.0); %Lymphocytes 16.2 % (21.0-51.0); %Monocytes 7.8 % (0.0-10.0); %Neutrophils 73.9 % (42.0-75.0); Hemoglobin 9.4 g/dL (12.0-16.0); Mean Corpuscular HGB CONC 33.4 g/dL (32.0-36.0); Mean Corpuscular Hemoglobin 27.6 pg (27.0-31.0); Mean Corpuscular Volume 82.6 fL (78.0-98.0); Mean Platelet Volume 9.8 fL (7.4-10.4); Platelet Count 209 thou/uL (130-400); RBC Distribution Width 17.1 % (11.5-14.5); Red Blood Cell (RBC) Count 3.42 mill/uL (4.20-5.40); White Blood Cell (WBC) Count 10.3 thou/uL (4.8-10.8)
[2021-06-07 01:19] LABS: ALT (SGPT) 19 U/L (8-55); AST (SGOT) 17 U/L (5-34); Alkaline Phosphatase 131 U/L (40-110); Anion Gap 13 mmol/L (10-20); BUN (Urea Nitrogen) 42 mg/dL (9.8-20.1); Bilirubin, Total 0.2 mg/dL (0.2-1.2); Calc. Creatinine Clearance 0 mL/min (70-130); Calcium 9.1 mg/dL (7.8-10.44); Carbon Dioxide 25 mmol/L (23-31); Chloride 107 mmol/L (98-107); Globulin 2.5 g/dL (2.4-3.5); Glucose 136 mg/dL (80-115); Potassium 5.1 mmol/L (3.5-5.1); Protein, Total 5.5 g/dL (5.8-8.1); Sodium 140 mmol/L (136-145)
[2021-06-07 01:40] LABS: CKMB 1.7 ng/mL (0-6.6)
== END 2021-06-07 03:11 ==
LOC: ERS 23:57
DX: J44.1 Chronic obstructive pulmonary disease with (acute) exacerbation (principal); I50.9 Heart failure, unspecified; E11.9 Type 2 diabetes mellitus without complications; I25.2 Old myocardial infarction; F17.210 Nicotine dependence, cigarettes, uncomplicated; Z86.73 Personal history of transient ischemic attack (TIA), and cerebral infarction without residual deficits; Z79.82 Long term (current) use of aspirin; Z79.899 Other long term (current) drug therapy
CPT/HCPCS: 71045; 80053; 82553; 83880; 84484; 85025; 93005; 94640; 94660; J2930; J3475; J7620

== ENCOUNTER 2021-06-07 16:32 | Inpatient (IN) | payer MEDICARE, OTHER ==
[2021-06-07 17:28] LABS: #Lymphocytes 0.3 thou/uL (1.20-3.40); #Monocytes 0.4 thou/uL (0.11-0.59); #Neutrophils 9.6 thou/uL (1.40-6.50); %Basophils 0.2 % (0.0-1.0); %Eosinophils 0.2 % (0.0-10.0); %Lymphocytes 2.9 % (21.0-51.0); %Monocytes 3.8 % (0.0-10.0); Hemoglobin 9.2 g/dL (12.0-16.0); Mean Corpuscular Hemoglobin 27.3 pg (27.0-31.0); Mean Corpuscular Volume 82.8 fL (78.0-98.0); Mean Platelet Volume 9.6 fL (7.4-10.4); Platelet Count 212 thou/uL (130-400); RBC Distribution Width 16.8 % (11.5-14.5); Red Blood Cell (RBC) Count 3.38 mill/uL (4.20-5.40); White Blood Cell (WBC) Count 10.3 thou/uL (4.8-10.8)
[2021-06-07 17:47] LABS: ALT (SGPT) 18 U/L (8-55); AST (SGOT) 12 U/L (5-34); Albumin 3.1 g/dL (3.4-4.8); Alkaline Phosphatase 134 U/L (40-110); Anion Gap 11 mmol/L (10-20); BUN (Urea Nitrogen) 55 mg/dL (9.8-20.1); Bilirubin, Total 0.2 mg/dL (0.2-1.2); Calc. Creatinine Clearance 0 mL/min (70-130); Carbon Dioxide 27 mmol/L (23-31); Chloride 103 mmol/L (98-107); Globulin 2.7 g/dL (2.4-3.5); Glucose 384 mg/dL (80-115); Protein, Total 5.8 g/dL (5.8-8.1); Sodium 136 mmol/L (136-145)
[2021-06-07 18:14] LABS: CKMB 2.3 ng/mL (0-6.6)
[2021-06-07] MEDS ORDERED: Furosemide 40 MG/4 ML VIAL ONE (18:15)
[2021-06-07] MEDS ORDERED: Ondansetron PF 4 MG/2 ML Vial IVP PRN (19:44)
[2021-06-07] MEDS ORDERED: Acetaminophen 325 MG TAB PO PRN (19:44)
[2021-06-07] MEDS ORDERED: Dextrose 5% in Water 1,000 ML IV PRN (19:48)
[2021-06-07] MEDS ORDERED: Dextrose 50% Abboject 50 ML SYRINGE SLOW IVP PRN (19:48)
[2021-06-07] MEDS ORDERED: HumaLOG 300 UNITS/3 ML VIAL SC PRN ×2 (19:48)
[2021-06-07] MEDS ORDERED: Aspirin 81 mg Enteric Coated Tablet PO SCH (20:15)
[2021-06-07 20:55] LABS: SARS-CoV-2 NAA Rapid Test Not Detected (NotDetected)
[2021-06-07] MEDS ORDERED: Heparin 5,000 UNITS/ML VIAL SC SCH (21:00)
[2021-06-07] MEDS ORDERED: Lantus 1000 UNITS/10 ML VIAL SC SCH (21:00)
[2021-06-07 23:19] VITALS: BP 134/89; TEMP 99
[2021-06-07 23:23] VITALS: BMI 39.6
[2021-06-08] MEDS ORDERED: Furosemide 40 MG/4 ML VIAL SLOW IVP SCH (06:00)
[2021-06-08] MEDS ORDERED: Mometasone 200 MCG/Formoterol 5 MCG 120 PUFF INHALER INH SCH (06:30)
[2021-06-08] MEDS ORDERED: prednisoLONE 10 MG ODT TAB PO SCH (09:00)
[2021-06-08] MEDS ORDERED: Lantus 1000 UNITS/10 ML VIAL SC SCH (09:00)
== END 2021-06-07 22:45 | disposition left against medical advice (07) | DRG 291 ==
LOC: ERS 16:32 → 2NO 18:36
PROVIDERS: ADMIT Internal Medicine; ATTEND Internal Medicine
DX: I13.0 Hypertensive heart and chronic kidney disease with heart failure and stage 1 through stage 4 chronic kidney disease, or unspecified chronic kidney disease (principal); I50.33 Acute on chronic diastolic (congestive) heart failure; J96.21 Acute and chronic respiratory failure with hypoxia; J44.1 Chronic obstructive pulmonary disease with (acute) exacerbation; N18.4 Chronic kidney disease, stage 4 (severe); I25.10 Atherosclerotic heart disease of native coronary artery without angina pectoris; E11.65 Type 2 diabetes mellitus with hyperglycemia; E11.22 Type 2 diabetes mellitus with diabetic chronic kidney disease; F17.210 Nicotine dependence, cigarettes, uncomplicated; F31.9 Bipolar disorder, unspecified; Z88.5 Allergy status to narcotic agent
CPT/HCPCS: 36415; 36416; 71045; 80053; 82553; 83880; 84484; 85025; 93005; 94640; 94660; J1815; J1940; J2930; J3475; J7620; U0002

== ENCOUNTER 2021-07-06 13:35 | Inpatient (IN) | payer MEDICARE, OTHER ==
[2021-07-06] MEDS ORDERED: Albuterol Sulfate 2.5 mg/0.5 ml Neb ONE (13:47)
[2021-07-06] MEDS ORDERED: Albuterol Sulfate 1.25 MG/3 ML NEB ONE (13:47)
[2021-07-06] MEDS ORDERED: Magnesium 2 GM/50 ML BAG (IN WATER) ONE (14:33)
[2021-07-06] MEDS ORDERED: Furosemide 20 MG/2 ML VIAL ONE (14:33)
[2021-07-06] MEDS ORDERED: methylPREDNISolone Sod Succ/PF 125 MG/2 ML VIAL ONE (14:34)
[2021-07-06] MEDS ORDERED: Furosemide 40 MG/4 ML VIAL ONE (14:34)
[2021-07-06 14:39] LABS: #Lymphocytes 0.5 thou/uL (1.20-3.40); #Monocytes 0.4 thou/uL (0.11-0.59); #Neutrophils 5.4 thou/uL (1.40-6.50); %Basophils 0.2 % (0.0-1.0); %Eosinophils 0.7 % (0.0-10.0); %Lymphocytes 7.8 % (21.0-51.0); %Monocytes 6.8 % (0.0-10.0); %Neutrophils 84.5 % (42.0-75.0); Hemoglobin 7.6 g/dL (12.0-16.0); Mean Corpuscular HGB CONC 33.1 g/dL (32.0-36.0); Mean Corpuscular Hemoglobin 27.9 pg (27.0-31.0); Mean Corpuscular Volume 84.3 fL (78.0-98.0); Mean Platelet Volume 8.6 fL (7.4-10.4); Platelet Count 186 thou/uL (130-400); RBC Distribution Width 16.1 % (11.5-14.5); Red Blood Cell (RBC) Count 2.74 mill/uL (4.20-5.40); White Blood Cell (WBC) Count 6.3 thou/uL (4.8-10.8)
[2021-07-06 14:43] LABS: Bacteria/HPF None Seen HPF (None Seen); Bilirubin Negative (Negative); Blood, Urine Negative (Negative); Clarity Clear (Clear); Glucose, Urine (Dipstick) 50 mg/dL (Negative); Ketone, Urine Negative (Negative); Leukocyte Negative Leu/uL (Negative); Nitrite Negative (Negative); Protein, Urine (Dipstick) 300 mg/dL (Neg-Trace); RBC/HPF 0-3 HPF (0-3); Specific Gravity, Urine 1.016 (1.002-1.036); Squamous Epithelial 0-3 HPF (0-3); Urobilinogen Normal mg/dL (Less than 2); WBC/HPF 0-3 HPF (0-3)
[2021-07-06 14:53] LABS: ALT (SGPT) 16 U/L (8-55); AST (SGOT) 19 U/L (5-34); Albumin 3.1 g/dL (3.4-4.8); Alkaline Phosphatase 103 U/L (40-110); Anion Gap 13 mmol/L (10-20); BUN (Urea Nitrogen) 34 mg/dL (9.8-20.1); Bilirubin, Total 0.3 mg/dL (0.2-1.2); Calc. Creatinine Clearance 0 mL/min (70-130); Calcium 8.9 mg/dL (7.8-10.44); Carbon Dioxide 26 mmol/L (23-31); Chloride 100 mmol/L (98-107); Globulin 2.5 g/dL (2.4-3.5); Glucose 129 mg/dL (80-115); Magnesium 1.7 mg/dL (1.6-2.6); Potassium 4.5 mmol/L (3.5-5.1); Protein, Total 5.6 g/dL (5.8-8.1); Sodium 134 mmol/L (136-145)
[2021-07-06] MEDS ORDERED: Fentanyl 100 MCG/2 ML VIAL ONE (15:02)
[2021-07-06] MEDS ORDERED: Nitroglycerin 2% Ointment 1 INCH/1 GM Packet ONE (15:02)
[2021-07-06 15:16] LABS: CKMB 2.7 ng/mL (0-6.6)
[2021-07-06 17:08] LABS: SARS-CoV-2 NAA Rapid Test Not Detected (NotDetected)
[2021-07-06 18:09] LABS: Troponin I 0.033 ng/mL (< 0.028)
[2021-07-06] MEDS: Fentanyl 100 MCG/2 ML VIAL SLOW IVP PRN (21:42)
[2021-07-06] MEDS ORDERED: Acetaminophen 325 MG TAB PO PRN (22:20)
[2021-07-06] MEDS ORDERED: Furosemide 100 MG/10 ML VIAL SLOW IVP SCH (22:30)
[2021-07-07 04:19] LABS: #Lymphocytes 0.3 thou/uL (1.20-3.40); #Neutrophils 4.2 thou/uL (1.40-6.50); %Eosinophils 0.1 % (0.0-10.0); %Lymphocytes 5.7 % (21.0-51.0); %Monocytes 0.7 % (0.0-10.0); %Neutrophils 93.5 % (42.0-75.0); Hemoglobin 8.2 g/dL (12.0-16.0); Mean Corpuscular HGB CONC 31.8 g/dL (32.0-36.0); Mean Corpuscular Volume 85.1 fL (78.0-98.0); Platelet Count 200 thou/uL (130-400); RBC Distribution Width 16.1 % (11.5-14.5); Red Blood Cell (RBC) Count 3.04 mill/uL (4.20-5.40); White Blood Cell (WBC) Count 4.5 thou/uL (4.8-10.8)
[2021-07-07 04:40] LABS: Anion Gap 13 mmol/L (10-20); BUN (Urea Nitrogen) 38 mg/dL (9.8-20.1); Calc. Creatinine Clearance 28 mL/min (70-130); Calcium 9.5 mg/dL (7.8-10.44); Carbon Dioxide 25 mmol/L (23-31); Chloride 100 mmol/L (98-107); Glucose 291 mg/dL (80-115); Potassium 4.4 mmol/L (3.5-5.1); Sodium 134 mmol/L (136-145)
[2021-07-07] MEDS ORDERED: Dextrose 5% in Water 1,000 ML IV PRN (06:17)
[2021-07-07] MEDS ORDERED: Dextrose 50% Abboject 50 ML SYRINGE SLOW IVP PRN (06:17)
[2021-07-07] MEDS: HumaLOG 300 UNITS/3 ML VIAL SC PRN ×2 (06:49→10:46)
[2021-07-07 06:55] LABS: Hemoglobin A1c 6.5 % (4.0-6.0)
[2021-07-07] MEDS ORDERED: Furosemide 40 MG/4 ML VIAL SLOW IVP SCH ×2 (07:00→14:00)
[2021-07-07] MEDS ORDERED: predniSONE 20 MG TAB PO SCH (08:00)
[2021-07-07] MEDS: Heparin 5,000 UNITS/ML VIAL SC SCH ×3 (08:56→21:14)
[2021-07-07] MEDS ORDERED: Enoxaparin Sodium 30 MG/0.3 ML SYRINGE SC SCH (09:00)
[2021-07-07] MEDS ORDERED: methylPREDNISolone Sod Succ 40 MG VIAL IVP SCH (09:00)
[2021-07-07] MEDS: Fentanyl 100 MCG/2 ML VIAL SLOW IVP PRN ×3 (10:44→21:42)
[2021-07-07] MEDS ORDERED: Epoetin (ESRD) 20,000 UNITS/ML SC SCH (11:00)
[2021-07-07] MEDS: EPOETIN ALFA-EPBX (ESRD) 4,000 UNIT/ML VIAL SC SCH (13:36)
[2021-07-07] MEDS: Albumin 25% 25 GM/100 ML BOT IVPB SCH ×2 (13:40→19:06)
[2021-07-07] MEDS ORDERED: Albuterol Sulfate 2.5 mg/3 ml Neb NEB PRN (15:00)
[2021-07-07] MEDS ORDERED: Furosemide 100 MG/10 ML VIAL SLOW IVP SCH (17:15)
[2021-07-07] MEDS: hydrALAZINE 25 MG TAB PO SCH (21:11)
[2021-07-07] MEDS ORDERED: Naloxone HCl 2 MG in Sodium Chloride 0.9% 500 ML IV PRN (21:11)
[2021-07-07] MEDS ORDERED: Naloxone HCl 0.4 mg/ml Vial IV PRN (21:11)
[2021-07-07] MEDS: Atorvastatin Calcium 40 MG TAB PO SCH (21:12)
[2021-07-07] MEDS: Carvedilol 6.25 MG TAB PO SCH (21:12)
[2021-07-07] MEDS: Gabapentin 300 MG CAP PO SCH (21:13)
[2021-07-07] MEDS: methylPREDNISolone Sod Succ 40 MG VIAL IVP SCH (21:14)
[2021-07-07] MEDS: rOPINIRole HCl 2 MG TAB PO SCH (21:19)
[2021-07-07] MEDS ORDERED: Naloxone HCl 2 MG, Admixture Fee 1 EACH in Sodium Chloride 0.9% 500 ML IV PRN (21:45)
[2021-07-08] MEDS: Albumin 25% 25 GM/100 ML BOT IVPB SCH ×4 (00:07→18:15)
[2021-07-08] MEDS ORDERED: hydrOXYzine 25 MG TAB PO SCH (02:00)
[2021-07-08 04:03] LABS: #Lymphocytes 0.2 thou/uL (1.20-3.40); #Neutrophils 6.2 thou/uL (1.40-6.50); %Basophils 0.5 % (0.0-1.0); %Lymphocytes 3.3 % (21.0-51.0); %Monocytes 0.6 % (0.0-10.0); %Neutrophils 95.5 % (42.0-75.0); Hemoglobin 7.7 g/dL (12.0-16.0); Mean Corpuscular HGB CONC 32.3 g/dL (32.0-36.0); Mean Corpuscular Hemoglobin 27.1 pg (27.0-31.0); Mean Corpuscular Volume 84.1 fL (78.0-98.0); Mean Platelet Volume 8.8 fL (7.4-10.4); Platelet Count 203 thou/uL (130-400); Red Blood Cell (RBC) Count 2.84 mill/uL (4.20-5.40); White Blood Cell (WBC) Count 6.5 thou/uL (4.8-10.8)
[2021-07-08] MEDS: Fentanyl 100 MCG/2 ML VIAL SLOW IVP PRN ×3 (04:04→15:30)
[2021-07-08 04:33] LABS: ALT (SGPT) 17 U/L (8-55); AST (SGOT) 21 U/L (5-34); Albumin 3.8 g/dL (3.4-4.8); Alkaline Phosphatase 90 U/L (40-110); Anion Gap 16 mmol/L (10-20); BUN (Urea Nitrogen) 43 mg/dL (9.8-20.1); Bilirubin, Total 0.3 mg/dL (0.2-1.2); Calc. Creatinine Clearance 28 mL/min (70-130); Calcium 9.6 mg/dL (7.8-10.44); Carbon Dioxide 22 mmol/L (23-31); Chloride 100 mmol/L (98-107); Globulin 2.9 g/dL (2.4-3.5); Glucose 308 mg/dL (80-115); Potassium 4.8 mmol/L (3.5-5.1); Protein, Total 6.7 g/dL (5.8-8.1); Sodium 133 mmol/L (136-145)
[2021-07-08] MEDS: HumaLOG 300 UNITS/3 ML VIAL SC PRN ×3 (06:04→21:04)
[2021-07-08] MEDS: Furosemide 40 MG/4 ML VIAL SLOW IVP SCH ×2 (07:15→15:21)
[2021-07-08] MEDS: Sildenafil Citrate 20 MG TAB PO SCH (08:54)
[2021-07-08] MEDS: Iron Polysaccharides Complex 150 MG CAP PO SCH (08:54)
[2021-07-08] MEDS: methylPREDNISolone Sod Succ 40 MG VIAL IVP SCH ×2 (08:56→21:05)
[2021-07-08] MEDS: Cholecalciferol 1,000 UNITS (25 MCG) TAB PO SCH (08:56)
[2021-07-08] MEDS: Carvedilol 6.25 MG TAB PO SCH ×2 (08:56→21:02)
[2021-07-08] MEDS: Amiodarone 200 MG TAB PO SCH (08:57)
[2021-07-08] MEDS: hydrALAZINE 25 MG TAB PO SCH ×3 (08:57→21:03)
[2021-07-08] MEDS: Gabapentin 300 MG CAP PO SCH ×2 (08:57→21:03)
[2021-07-08] MEDS: Aspirin 81 mg Enteric Coated Tablet PO SCH (08:57)
[2021-07-08] MEDS: Heparin 5,000 UNITS/ML VIAL SC SCH ×3 (08:57→21:04)
[2021-07-08] MEDS ORDERED: methylPREDNISolone Sod Succ 40 MG VIAL IVP SCH (09:00)
[2021-07-08] MEDS ORDERED: rOPINIRole HCl 2 MG TAB PO SCH (09:00)
[2021-07-08] MEDS ORDERED: ISOSORBIDE DINITRATE 30 MG PO SCH (09:00)
[2021-07-08] MEDS ORDERED: Albumin 25% 25 GM/100 ML BOT IVPB SCH (10:00)
[2021-07-08 11:21] LABS: Actual Bicarbonate (HCO3a) 23.6 mEq/L (22-28); Base Excess (BEa) -2.2 mEq/L (-2.0 to +3.0); Calcium, Ionized (arterial) 1.22 mmol/L (1.12-1.30); Carboxyhemoglobin (COHb) 0.3 gm% (0.0-3.0); Hemoglobin (Hb) 8.6 g/dL (12.0-16.0); O2 Tension (PaO2), arterial 113.8 mmHg (> 80.0); Potassium - ABG Lab 4.81 mmol/L (3.70-5.30); pH, Arterial 7.34 (7.35-7.45)
[2021-07-08 11:23] LABS: Puncture Site RRA
[2021-07-08] MEDS: hydrOXYzine 25 MG TAB PO PRN (18:30)
[2021-07-08] MEDS: Atorvastatin Calcium 40 MG TAB PO SCH (21:02)
[2021-07-08] MEDS: rOPINIRole HCl 2 MG TAB PO SCH (21:04)
[2021-07-09] MEDS: Fentanyl 100 MCG/2 ML VIAL SLOW IVP PRN ×5 (00:17→20:20)
[2021-07-09] MEDS: Albumin 25% 25 GM/100 ML BOT IVPB SCH ×2 (00:18→06:14)
[2021-07-09 03:46] LABS: #Lymphocytes 0.2 thou/uL (1.20-3.40); #Monocytes 0.1 thou/uL (0.11-0.59); #Neutrophils 5.5 thou/uL (1.40-6.50); %Eosinophils 0.1 % (0.0-10.0); %Lymphocytes 3.9 % (21.0-51.0); Hemoglobin 7.3 g/dL (12.0-16.0); Mean Corpuscular HGB CONC 32.5 g/dL (32.0-36.0); Mean Corpuscular Hemoglobin 27.6 pg (27.0-31.0); Mean Corpuscular Volume 84.9 fL (78.0-98.0); Mean Platelet Volume 8.7 fL (7.4-10.4); Platelet Count 191 thou/uL (130-400); Red Blood Cell (RBC) Count 2.65 mill/uL (4.20-5.40); White Blood Cell (WBC) Count 5.9 thou/uL (4.8-10.8)
[2021-07-09] MEDS: hydrOXYzine 25 MG TAB PO PRN (03:46)
[2021-07-09 04:10] LABS: ALT (SGPT) 15 U/L (8-55); AST (SGOT) 14 U/L (5-34); Alkaline Phosphatase 84 U/L (40-110); Anion Gap 14 mmol/L (10-20); BUN (Urea Nitrogen) 52 mg/dL (9.8-20.1); Bilirubin, Total 0.4 mg/dL (0.2-1.2); Calc. Creatinine Clearance 28 mL/min (70-130); Calcium 9.9 mg/dL (7.8-10.44); Carbon Dioxide 24 mmol/L (23-31); Chloride 99 mmol/L (98-107); Globulin 2.5 g/dL (2.4-3.5); Glucose 300 mg/dL (80-115); Potassium 4.8 mmol/L (3.5-5.1); Protein, Total 6.5 g/dL (5.8-8.1); Sodium 132 mmol/L (136-145)
[2021-07-09] MEDS: HumaLOG 300 UNITS/3 ML VIAL SC PRN ×4 (06:14→21:10)
[2021-07-09] MEDS: Furosemide 40 MG/4 ML VIAL SLOW IVP SCH ×2 (06:14→14:01)
[2021-07-09] MEDS ORDERED: Lantus 1000 UNITS/10 ML VIAL SC SCH (09:00)
[2021-07-09] MEDS: Iron Polysaccharides Complex 150 MG CAP PO SCH (10:11)
[2021-07-09] MEDS: Cholecalciferol 1,000 UNITS (25 MCG) TAB PO SCH (10:12)
[2021-07-09] MEDS: Amiodarone 200 MG TAB PO SCH (10:12)
[2021-07-09] MEDS: Aspirin 81 mg Enteric Coated Tablet PO SCH (10:12)
[2021-07-09] MEDS: Gabapentin 300 MG CAP PO SCH ×2 (10:13→20:29)
[2021-07-09] MEDS: hydrALAZINE 25 MG TAB PO SCH ×3 (10:13→20:27)
[2021-07-09] MEDS: Carvedilol 6.25 MG TAB PO SCH ×2 (10:13→20:28)
[2021-07-09] MEDS: Heparin 5,000 UNITS/ML VIAL SC SCH ×3 (10:13→20:27)
[2021-07-09] MEDS: methylPREDNISolone Sod Succ 40 MG VIAL IVP SCH ×2 (10:14→20:27)
[2021-07-09] MEDS: Sildenafil Citrate 20 MG TAB PO SCH (10:14)
[2021-07-09 13:16] LABS: Hemoglobin 8.2 g/dL (12.0-16.0)
[2021-07-09] MEDS: rOPINIRole HCl 2 MG TAB PO SCH (20:28)
[2021-07-09] MEDS: Atorvastatin Calcium 40 MG TAB PO SCH (20:28)
[2021-07-10] MEDS: Fentanyl 100 MCG/2 ML VIAL SLOW IVP PRN ×4 (01:50→23:25)
[2021-07-10 03:54] LABS: #Lymphocytes 0.3 thou/uL (1.20-3.40); #Monocytes 0.1 thou/uL (0.11-0.59); #Neutrophils 7.8 thou/uL (1.40-6.50); %Eosinophils 0.1 % (0.0-10.0); %Lymphocytes 3.2 % (21.0-51.0); %Monocytes 1.8 % (0.0-10.0); %Neutrophils 94.9 % (42.0-75.0); Hemoglobin 7.9 g/dL (12.0-16.0); Mean Corpuscular HGB CONC 32.2 g/dL (32.0-36.0); Mean Corpuscular Hemoglobin 27.3 pg (27.0-31.0); Mean Corpuscular Volume 84.7 fL (78.0-98.0); Mean Platelet Volume 8.5 fL (7.4-10.4); Platelet Count 225 thou/uL (130-400); RBC Distribution Width 15.8 % (11.5-14.5); Red Blood Cell (RBC) Count 2.88 mill/uL (4.20-5.40); White Blood Cell (WBC) Count 8.3 thou/uL (4.8-10.8)
[2021-07-10 04:22] LABS: ALT (SGPT) 15 U/L (8-55); AST (SGOT) 14 U/L (5-34); Albumin 4.2 g/dL (3.4-4.8); Alkaline Phosphatase 88 U/L (40-110); Anion Gap 14 mmol/L (10-20); BUN (Urea Nitrogen) 57 mg/dL (9.8-20.1); Bilirubin, Total 0.4 mg/dL (0.2-1.2); Calc. Creatinine Clearance 26 mL/min (70-130); Carbon Dioxide 26 mmol/L (23-31); Chloride 97 mmol/L (98-107); Globulin 2.7 g/dL (2.4-3.5); Glucose 255 mg/dL (80-115); Potassium 5.4 mmol/L (3.5-5.1); Protein, Total 6.9 g/dL (5.8-8.1); Sodium 132 mmol/L (136-145)
[2021-07-10] MEDS: hydrOXYzine 25 MG TAB PO PRN (04:42)
[2021-07-10] MEDS: HumaLOG 300 UNITS/3 ML VIAL SC PRN ×2 (04:49→23:13)
[2021-07-10] MEDS: Furosemide 40 MG/4 ML VIAL SLOW IVP SCH ×2 (05:01→15:17)
[2021-07-10] MEDS: Amiodarone 200 MG TAB PO SCH (09:19)
[2021-07-10] MEDS: Iron Polysaccharides Complex 150 MG CAP PO SCH (09:19)
[2021-07-10] MEDS: Gabapentin 300 MG CAP PO SCH ×2 (09:19→23:15)
[2021-07-10] MEDS: methylPREDNISolone Sod Succ 40 MG VIAL IVP SCH ×2 (09:19→23:12)
[2021-07-10] MEDS: Sildenafil Citrate 20 MG TAB PO SCH (09:19)
[2021-07-10] MEDS: Cholecalciferol 1,000 UNITS (25 MCG) TAB PO SCH (09:20)
[2021-07-10] MEDS: hydrALAZINE 25 MG TAB PO SCH ×3 (09:20→23:13)
[2021-07-10] MEDS: Carvedilol 6.25 MG TAB PO SCH ×2 (09:21→23:15)
[2021-07-10] MEDS: Lantus 1000 UNITS/10 ML VIAL SC SCH (09:21)
[2021-07-10] MEDS: Aspirin 81 mg Enteric Coated Tablet PO SCH (09:21)
[2021-07-10] MEDS: Heparin 5,000 UNITS/ML VIAL SC SCH ×3 (09:21→23:12)
[2021-07-10] MEDS ORDERED: Heparin 10,000 UNITS/ 10 ML VIAL ONE ×2 (11:41→16:11)
[2021-07-10] MEDS ORDERED: Sodium Chloride 0.9% 20 ML ONE (16:11)
[2021-07-10] MEDS ORDERED: Lidocaine 1% w/Epinephrine 1:100K 20 ML VIAL ONE (16:11)
[2021-07-10] MEDS ORDERED: Bupivacaine PF 0.5% 30 ML VIAL ONE (16:11)
[2021-07-10] MEDS ORDERED: Fentanyl 100 MCG/2 ML VIAL ONE ×2 (16:29→16:48)
[2021-07-10] MEDS ORDERED: ceFAZolin Sodium (SDC) 2 GM/100 ML BAG ONE (16:36)
[2021-07-10] MEDS ORDERED: Famotidine/PF 20 mg/2ml Vial ONE (16:48)
[2021-07-10] MEDS ORDERED: Ondansetron PF 4 MG/2 ML Vial ONE (17:01)
[2021-07-10] MEDS ORDERED: Dexamethasone 20 MG/5 ML VIAL ONE (17:01)
[2021-07-10] MEDS ORDERED: ePHEDrine 50 MG/ML VIAL ONE (17:01)
[2021-07-10] MEDS ORDERED: PROPOFOL 200 MG/20 ML VIAL ONE (17:01)
[2021-07-10 20:42] LABS: HBSAB Concentration Less than 8.00 mIU/mL; HBSAg Index 0.23 S/CO (0-0.99); Hep B Core Total Ab Non-Reactive (NonReactive); Hep B Core Total Index 0.09 S/CO (0-0.79); Hep B Surf AB Non-Reactive (NonReactive); Hep B Surf Ag Non-Reactive S/CO (NonReactive); Hep C IgG Ab Non-Reactive (NonReactive); Hep C Index 0.04 S/CO (0-0.79)
[2021-07-10] MEDS: rOPINIRole HCl 2 MG TAB PO SCH (23:13)
[2021-07-10] MEDS: Atorvastatin Calcium 40 MG TAB PO SCH (23:14)
[2021-07-11] MEDS: Lorazepam 2 MG/ML VIAL SLOW IVP PRN (01:34)
[2021-07-11 04:47] LABS: #Lymphocytes 0.2 thou/uL (1.20-3.40); #Monocytes 0.2 thou/uL (0.11-0.59); #Neutrophils 5.6 thou/uL (1.40-6.50); %Eosinophils 0.1 % (0.0-10.0); Hemoglobin 6.9 g/dL (12.0-16.0); Mean Corpuscular HGB CONC 32.3 g/dL (32.0-36.0); Mean Corpuscular Hemoglobin 27.2 pg (27.0-31.0); Mean Corpuscular Volume 84.3 fL (78.0-98.0); Mean Platelet Volume 8.7 fL (7.4-10.4); Platelet Count 198 thou/uL (130-400); RBC Distribution Width 15.9 % (11.5-14.5); Red Blood Cell (RBC) Count 2.52 mill/uL (4.20-5.40)
[2021-07-11] MEDS: HumaLOG 300 UNITS/3 ML VIAL SC PRN ×3 (05:48→17:03)
[2021-07-11 05:51] LABS: ALT (SGPT) 16 U/L (8-55); AST (SGOT) 15 U/L (5-34); Albumin 3.9 g/dL (3.4-4.8); Alkaline Phosphatase 76 U/L (40-110); Anion Gap 14 mmol/L (10-20); BUN (Urea Nitrogen) 50 mg/dL (9.8-20.1); Bilirubin, Total 0.3 mg/dL (0.2-1.2); Calc. Creatinine Clearance 32 mL/min (70-130); Calcium 9.6 mg/dL (7.8-10.44); Carbon Dioxide 26 mmol/L (23-31); Chloride 98 mmol/L (98-107); Globulin 2.4 g/dL (2.4-3.5); Glucose 340 mg/dL (80-115); Potassium 4.9 mmol/L (3.5-5.1); Protein, Total 6.3 g/dL (5.8-8.1); Sodium 133 mmol/L (136-145)
[2021-07-11] MEDS: Furosemide 40 MG/4 ML VIAL SLOW IVP SCH ×2 (05:54→15:13)
[2021-07-11] MEDS: Aspirin 81 mg Enteric Coated Tablet PO SCH (09:14)
[2021-07-11] MEDS: hydrALAZINE 25 MG TAB PO SCH ×3 (09:15→19:52)
[2021-07-11] MEDS: Gabapentin 300 MG CAP PO SCH ×2 (09:15→19:53)
[2021-07-11] MEDS: Cholecalciferol 1,000 UNITS (25 MCG) TAB PO SCH (09:15)
[2021-07-11] MEDS: Carvedilol 6.25 MG TAB PO SCH ×2 (09:15→19:52)
[2021-07-11] MEDS: Amiodarone 200 MG TAB PO SCH (09:15)
[2021-07-11] MEDS: Sildenafil Citrate 20 MG TAB PO SCH (09:16)
[2021-07-11] MEDS: methylPREDNISolone Sod Succ 40 MG VIAL IVP SCH ×2 (09:16→19:53)
[2021-07-11] MEDS: Iron Polysaccharides Complex 150 MG CAP PO SCH (09:16)
[2021-07-11] MEDS: Lantus 1000 UNITS/10 ML VIAL SC SCH (09:16)
[2021-07-11] MEDS: Heparin 5,000 UNITS/ML VIAL SC SCH ×3 (09:17→19:54)
[2021-07-11] MEDS ORDERED: Lidocaine 5% Patch TD SCH (13:15)
[2021-07-11] MEDS: Fentanyl 100 MCG/2 ML VIAL SLOW IVP PRN ×2 (14:13→19:50)
[2021-07-11] MEDS: rOPINIRole HCl 2 MG TAB PO SCH (19:52)
[2021-07-11] MEDS: Atorvastatin Calcium 40 MG TAB PO SCH (19:53)
[2021-07-11] MEDS: Transdermal Patch Removal TOP SCH (20:51)
[2021-07-12] MEDS: Fentanyl 100 MCG/2 ML VIAL SLOW IVP PRN (02:56)
[2021-07-12] MEDS: Furosemide 40 MG/4 ML VIAL SLOW IVP SCH (06:01)
[2021-07-12] MEDS: HumaLOG 300 UNITS/3 ML VIAL SC PRN ×3 (06:03→17:01)
[2021-07-12] MEDS: Lorazepam 2 MG/ML VIAL SLOW IVP PRN (06:11)
[2021-07-12 06:47] LABS: #Lymphocytes 0.3 thou/uL (1.20-3.40); #Monocytes 0.6 thou/uL (0.11-0.59); %Lymphocytes 3.2 % (21.0-51.0); %Monocytes 6.7 % (0.0-10.0); %Neutrophils 90.1 % (42.0-75.0); Hemoglobin 6.8 g/dL (12.0-16.0); Mean Corpuscular HGB CONC 31.5 g/dL (32.0-36.0); Mean Corpuscular Hemoglobin 26.7 pg (27.0-31.0); Mean Corpuscular Volume 84.8 fL (78.0-98.0); Mean Platelet Volume 8.5 fL (7.4-10.4); Platelet Count 218 thou/uL (130-400); RBC Distribution Width 15.7 % (11.5-14.5); Red Blood Cell (RBC) Count 2.53 mill/uL (4.20-5.40); White Blood Cell (WBC) Count 8.9 thou/uL (4.8-10.8)
[2021-07-12 07:08] LABS: ALT (SGPT) 10 U/L (8-55); AST (SGOT) 14 U/L (5-34); Alkaline Phosphatase 84 U/L (40-110); Anion Gap 13 mmol/L (10-20); BUN (Urea Nitrogen) 58 mg/dL (9.8-20.1); Bilirubin, Total 0.4 mg/dL (0.2-1.2); Calc. Creatinine Clearance 27 mL/min (70-130); Calcium 9.8 mg/dL (7.8-10.44); Carbon Dioxide 27 mmol/L (23-31); Chloride 96 mmol/L (98-107); Globulin 2.3 g/dL (2.4-3.5); Glucose 346 mg/dL (80-115); Phosphorus 4.6 mg/dL (2.3-4.7); Potassium 5.1 mmol/L (3.5-5.1); Protein, Total 6.3 g/dL (5.8-8.1); Sodium 131 mmol/L (136-145)
[2021-07-12] MEDS: Cholecalciferol 1,000 UNITS (25 MCG) TAB PO SCH (08:24)
[2021-07-12] MEDS: hydrALAZINE 25 MG TAB PO SCH ×3 (08:24→22:01)
[2021-07-12] MEDS: Amiodarone 200 MG TAB PO SCH (08:25)
[2021-07-12] MEDS: Aspirin 81 mg Enteric Coated Tablet PO SCH (08:25)
[2021-07-12] MEDS: Sildenafil Citrate 20 MG TAB PO SCH (08:25)
[2021-07-12] MEDS: Iron Polysaccharides Complex 150 MG CAP PO SCH (08:25)
[2021-07-12] MEDS: Carvedilol 6.25 MG TAB PO SCH ×2 (08:25→22:02)
[2021-07-12] MEDS: methylPREDNISolone Sod Succ 40 MG VIAL IVP SCH ×2 (08:26→22:03)
[2021-07-12] MEDS: Gabapentin 300 MG CAP PO SCH ×2 (08:26→22:02)
[2021-07-12] MEDS: Lidocaine 5% Patch TD SCH (08:27)
[2021-07-12] MEDS: Heparin 5,000 UNITS/ML VIAL SC SCH ×3 (08:28→22:03)
[2021-07-12] MEDS: Lantus 1000 UNITS/10 ML VIAL SC SCH (08:34)
[2021-07-12] MEDS ORDERED: Lantus 1000 UNITS/10 ML VIAL SC SCH ×2 (09:58→10:45)
[2021-07-12 10:26] LABS: Magnesium 2.2 mg/dL (1.6-2.6)
[2021-07-12] MEDS: traMADol HCl 50 MG TAB PO PRN ×3 (10:54→23:58)
[2021-07-12] MEDS ORDERED: Heparin 10,000 UNITS/ 10 ML VIAL ONE (11:40)
[2021-07-12] MEDS: Acetaminophen 325 MG TAB PO SCH ×2 (12:44→18:46)
[2021-07-12] MEDS ORDERED: Fentanyl 100 MCG/2 ML VIAL SLOW IVP SCH (18:30)
[2021-07-12] MEDS: Atorvastatin Calcium 40 MG TAB PO SCH (22:01)
[2021-07-12] MEDS: hydrOXYzine 25 MG TAB PO PRN (22:01)
[2021-07-12] MEDS: Transdermal Patch Removal TOP SCH ×2 (22:01→23:07)
[2021-07-12] MEDS: rOPINIRole HCl 2 MG TAB PO SCH (22:01)
[2021-07-12] MEDS: Melatonin 3 MG TAB PO PRN (22:02)
[2021-07-13] MEDS ORDERED: Fentanyl 100 MCG/2 ML VIAL SLOW IVP SCH (02:30)
[2021-07-13] MEDS: Acetaminophen 325 MG TAB PO SCH ×4 (02:47→20:19)
[2021-07-13 04:23] LABS: #Lymphocytes 0.3 thou/uL (1.20-3.40); #Monocytes 0.3 thou/uL (0.11-0.59); #Neutrophils 6.7 thou/uL (1.40-6.50); %Basophils 0.1 % (0.0-1.0); %Eosinophils 0.1 % (0.0-10.0); %Lymphocytes 3.6 % (21.0-51.0); %Neutrophils 92.2 % (42.0-75.0); Hemoglobin 8.8 g/dL (12.0-16.0); Mean Corpuscular HGB CONC 33.2 g/dL (32.0-36.0); Mean Corpuscular Hemoglobin 28.2 pg (27.0-31.0); Mean Corpuscular Volume 84.7 fL (78.0-98.0); Mean Platelet Volume 8.8 fL (7.4-10.4); Platelet Count 173 thou/uL (130-400); RBC Distribution Width 15.6 % (11.5-14.5); Red Blood Cell (RBC) Count 3.13 mill/uL (4.20-5.40); White Blood Cell (WBC) Count 7.3 thou/uL (4.8-10.8)
[2021-07-13 04:43] LABS: ALT (SGPT) 10 U/L (8-55); AST (SGOT) 18 U/L (5-34); Albumin 3.7 g/dL (3.4-4.8); Alkaline Phosphatase 89 U/L (40-110); Anion Gap 12 mmol/L (10-20); BUN (Urea Nitrogen) 40 mg/dL (9.8-20.1); Bilirubin, Total 0.7 mg/dL (0.2-1.2); Calc. Creatinine Clearance 37 mL/min (70-130); Calcium 9.3 mg/dL (7.8-10.44); Carbon Dioxide 29 mmol/L (23-31); Chloride 96 mmol/L (98-107); Globulin 2.5 g/dL (2.4-3.5); Glucose 243 mg/dL (80-115); Potassium 4.3 mmol/L (3.5-5.1); Protein, Total 6.2 g/dL (5.8-8.1); Sodium 133 mmol/L (136-145)
[2021-07-13] MEDS: HumaLOG 300 UNITS/3 ML VIAL SC PRN ×4 (06:07→22:18)
[2021-07-13] MEDS: Aspirin 81 mg Enteric Coated Tablet PO SCH (08:16)
[2021-07-13] MEDS: Iron Polysaccharides Complex 150 MG CAP PO SCH (08:16)
[2021-07-13] MEDS: traMADol HCl 50 MG TAB PO PRN ×2 (08:17→20:20)
[2021-07-13] MEDS: hydrALAZINE 25 MG TAB PO SCH ×3 (08:18→20:17)
[2021-07-13] MEDS: Sildenafil Citrate 20 MG TAB PO SCH (08:18)
[2021-07-13] MEDS: Amiodarone 200 MG TAB PO SCH (08:19)
[2021-07-13] MEDS: Cholecalciferol 1,000 UNITS (25 MCG) TAB PO SCH (08:19)
[2021-07-13] MEDS: Gabapentin 300 MG CAP PO SCH ×2 (08:19→20:18)
[2021-07-13] MEDS: methylPREDNISolone Sod Succ 40 MG VIAL IVP SCH ×2 (08:19→20:15)
[2021-07-13] MEDS: Carvedilol 6.25 MG TAB PO SCH ×2 (08:19→20:18)
[2021-07-13] MEDS: Heparin 5,000 UNITS/ML VIAL SC SCH ×3 (08:20→20:16)
[2021-07-13] MEDS: Lidocaine 5% Patch TD SCH (08:20)
[2021-07-13] MEDS ORDERED: Lantus 1000 UNITS/10 ML VIAL SC SCH (09:00)
[2021-07-13] MEDS: Lantus 1000 UNITS/10 ML VIAL SC SCH (09:06)
[2021-07-13] MEDS ORDERED: Tuberculin PPD 0.1 ML VIAL I-DERMAL SCH (09:30)
[2021-07-13] MEDS: Polyethylene Glycol 3350 17 GM Packet PO SCH (09:44)
[2021-07-13] MEDS: Atorvastatin Calcium 40 MG TAB PO SCH (20:18)
[2021-07-13] MEDS: rOPINIRole HCl 2 MG TAB PO SCH (20:19)
[2021-07-13] MEDS: Melatonin 3 MG TAB PO PRN (20:20)
[2021-07-13] MEDS: hydrOXYzine 25 MG TAB PO PRN (20:22)
[2021-07-13] MEDS: Transdermal Patch Removal TOP SCH ×2 (20:23→20:34)
[2021-07-14] MEDS: Acetaminophen 325 MG TAB PO SCH ×4 (00:45→18:11)
[2021-07-14] MEDS: traMADol HCl 50 MG TAB PO PRN ×4 (04:01→20:54)
[2021-07-14 05:27] LABS: #Lymphocytes 0.2 thou/uL (1.20-3.40); #Monocytes 0.4 thou/uL (0.11-0.59); #Neutrophils 6.2 thou/uL (1.40-6.50); %Basophils 0.5 % (0.0-1.0); %Lymphocytes 3.5 % (21.0-51.0); Hemoglobin 9.3 g/dL (12.0-16.0); Mean Corpuscular HGB CONC 31.9 g/dL (32.0-36.0); Mean Corpuscular Hemoglobin 27.4 pg (27.0-31.0); Mean Corpuscular Volume 85.8 fL (78.0-98.0); Mean Platelet Volume 8.8 fL (7.4-10.4); Platelet Count 179 thou/uL (130-400); RBC Distribution Width 15.6 % (11.5-14.5); Red Blood Cell (RBC) Count 3.39 mill/uL (4.20-5.40); White Blood Cell (WBC) Count 6.8 thou/uL (4.8-10.8)
[2021-07-14] MEDS: HumaLOG 300 UNITS/3 ML VIAL SC PRN ×4 (05:51→21:02)
[2021-07-14 05:52] LABS: ALT (SGPT) 11 U/L (8-55); AST (SGOT) 17 U/L (5-34); Albumin 3.7 g/dL (3.4-4.8); Alkaline Phosphatase 98 U/L (40-110); Anion Gap 9 mmol/L (10-20); BUN (Urea Nitrogen) 27 mg/dL (9.8-20.1); Bilirubin, Total 0.5 mg/dL (0.2-1.2); Calc. Creatinine Clearance 46 mL/min (70-130); Calcium 9.3 mg/dL (7.8-10.44); Carbon Dioxide 32 mmol/L (23-31); Chloride 97 mmol/L (98-107); Globulin 2.5 g/dL (2.4-3.5); Glucose 340 mg/dL (80-115); Potassium 4.1 mmol/L (3.5-5.1); Protein, Total 6.2 g/dL (5.8-8.1); Sodium 134 mmol/L (136-145)
[2021-07-14] MEDS: Iron Polysaccharides Complex 150 MG CAP PO SCH (08:07)
[2021-07-14] MEDS: methylPREDNISolone Sod Succ 40 MG VIAL IVP SCH ×2 (08:11→21:08)
[2021-07-14] MEDS: Aspirin 81 mg Enteric Coated Tablet PO SCH (08:12)
[2021-07-14] MEDS: Cholecalciferol 1,000 UNITS (25 MCG) TAB PO SCH (08:15)
[2021-07-14] MEDS: hydrALAZINE 25 MG TAB PO SCH ×3 (08:15→20:57)
[2021-07-14] MEDS: Gabapentin 300 MG CAP PO SCH ×2 (08:16→20:55)
[2021-07-14] MEDS: Polyethylene Glycol 3350 17 GM Packet PO SCH ×2 (08:19→20:53)
[2021-07-14] MEDS: Amiodarone 200 MG TAB PO SCH (08:19)
[2021-07-14] MEDS: Lidocaine 5% Patch TD SCH (08:19)
[2021-07-14] MEDS: Sildenafil Citrate 20 MG TAB PO SCH (09:00)
[2021-07-14] MEDS: Carvedilol 6.25 MG TAB PO SCH ×2 (09:18→20:56)
[2021-07-14] MEDS: Lantus 1000 UNITS/10 ML VIAL SC SCH (09:19)
[2021-07-14] MEDS: Heparin 5,000 UNITS/ML VIAL SC SCH (10:12)
[2021-07-14] MEDS: EPOETIN ALFA-EPBX (ESRD) 4,000 UNIT/ML VIAL SC SCH (12:04)
[2021-07-14 15:54] LABS: SARS-CoV-2 PCR by NAA Not Detected (NotDetected)
[2021-07-14] MEDS: rOPINIRole HCl 2 MG TAB PO SCH (20:56)
[2021-07-14] MEDS: Atorvastatin Calcium 40 MG TAB PO SCH (20:57)
[2021-07-14] MEDS: Transdermal Patch Removal TOP SCH ×2 (23:03→23:08)
[2021-07-14] MEDS ORDERED: Morphine 4 MG/ML VIAL SLOW IVP SCH (23:45)
[2021-07-14] MEDS: Melatonin 3 MG TAB PO PRN (23:50)
[2021-07-15] MEDS: Acetaminophen 325 MG TAB PO SCH (02:13)
[2021-07-15] MEDS: traMADol HCl 50 MG TAB PO PRN ×3 (04:32→16:42)
[2021-07-15] MEDS ORDERED: Labetalol HCl 100 MG/20 ML VIAL SLOW IVP PRN (05:01)
[2021-07-15] MEDS ORDERED: Morphine 4 MG/ML VIAL SLOW IVP SCH (05:45)
[2021-07-15] MEDS: HumaLOG 300 UNITS/3 ML VIAL SC PRN ×4 (05:54→21:07)
[2021-07-15 06:18] LABS: #Lymphocytes 0.3 thou/uL (1.20-3.40); #Monocytes 0.3 thou/uL (0.11-0.59); #Neutrophils 6.4 thou/uL (1.40-6.50); %Basophils 0.2 % (0.0-1.0); %Eosinophils 0.1 % (0.0-10.0); %Lymphocytes 4.3 % (21.0-51.0); %Monocytes 4.2 % (0.0-10.0); %Neutrophils 91.2 % (42.0-75.0); Hemoglobin 9.1 g/dL (12.0-16.0); Mean Corpuscular HGB CONC 32.5 g/dL (32.0-36.0); Mean Corpuscular Hemoglobin 27.9 pg (27.0-31.0); Mean Corpuscular Volume 85.8 fL (78.0-98.0); Mean Platelet Volume 8.5 fL (7.4-10.4); Platelet Count 168 thou/uL (130-400); RBC Distribution Width 15.6 % (11.5-14.5); Red Blood Cell (RBC) Count 3.24 mill/uL (4.20-5.40)
[2021-07-15 06:41] LABS: ALT (SGPT) 12 U/L (8-55); AST (SGOT) 16 U/L (5-34); Albumin 3.5 g/dL (3.4-4.8); Alkaline Phosphatase 93 U/L (40-110); Anion Gap 13 mmol/L (10-20); BUN (Urea Nitrogen) 37 mg/dL (9.8-20.1); Bilirubin, Total 0.5 mg/dL (0.2-1.2); Calc. Creatinine Clearance 39 mL/min (70-130); Calcium 9.5 mg/dL (7.8-10.44); Carbon Dioxide 29 mmol/L (23-31); Chloride 94 mmol/L (98-107); Globulin 2.3 g/dL (2.4-3.5); Glucose 231 mg/dL (80-115); Potassium 4.5 mmol/L (3.5-5.1); Protein, Total 5.8 g/dL (5.8-8.1); Sodium 131 mmol/L (136-145)
[2021-07-15] MEDS: methylPREDNISolone Sod Succ 40 MG VIAL IVP SCH (07:57)
[2021-07-15] MEDS: hydrALAZINE 25 MG TAB PO SCH ×3 (07:59→21:06)
[2021-07-15] MEDS: Cholecalciferol 1,000 UNITS (25 MCG) TAB PO SCH (08:03)
[2021-07-15] MEDS: Acetaminophen 500 MG TAB PO SCH ×2 (08:03→13:25)
[2021-07-15] MEDS: Gabapentin 300 MG CAP PO SCH ×2 (08:04→21:05)
[2021-07-15] MEDS: Aspirin 81 mg Enteric Coated Tablet PO SCH (08:05)
[2021-07-15] MEDS: Amiodarone 200 MG TAB PO SCH (08:05)
[2021-07-15] MEDS: Carvedilol 6.25 MG TAB PO SCH (08:05)
[2021-07-15] MEDS: Lidocaine 5% Patch TD SCH (08:06)
[2021-07-15] MEDS: Iron Polysaccharides Complex 150 MG CAP PO SCH (08:23)
[2021-07-15] MEDS: Lantus 1000 UNITS/10 ML VIAL SC SCH (08:23)
[2021-07-15] MEDS ORDERED: Lantus 1000 UNITS/10 ML VIAL SC SCH ×2 (09:32→09:45)
[2021-07-15] MEDS: Sildenafil Citrate 20 MG TAB PO SCH (10:31)
[2021-07-15] MEDS: Polyethylene Glycol 3350 17 GM Packet PO SCH ×2 (10:31→21:05)
[2021-07-15] MEDS ORDERED: Amlodipine 10 MG TAB PO SCH (10:45)
[2021-07-15] MEDS ORDERED: Carvedilol 25 MG TAB PO SCH ×2 (10:45→17:00)
[2021-07-15] MEDS ORDERED: Fentanyl 100 MCG/2 ML VIAL SLOW IVP PRN (13:23)
[2021-07-15] MEDS: BIOTENE MOUTH SPRAY 44.3 ML PO SCH ×2 (16:04→21:07)
[2021-07-15] MEDS: Carvedilol 25 MG TAB PO SCH (16:41)
[2021-07-15] MEDS: HYDROcodone/Acetaminophen 5/325 mg Tablet PO PRN (21:04)
[2021-07-15] MEDS: Senokot S 8.6-50 MG TAB PO SCH (21:06)
[2021-07-15] MEDS: rOPINIRole HCl 2 MG TAB PO SCH (21:06)
[2021-07-15] MEDS: Atorvastatin Calcium 40 MG TAB PO SCH (21:07)
[2021-07-15] MEDS: Transdermal Patch Removal TOP SCH ×2 (21:14→21:17)
[2021-07-16] MEDS: Labetalol HCl 100 MG/20 ML VIAL SLOW IVP PRN (00:13)
[2021-07-16] MEDS: BIOTENE MOUTH SPRAY 44.3 ML PO SCH ×5 (00:27→21:29)
[2021-07-16] MEDS: Ondansetron PF 4 MG/2 ML Vial IVP PRN (02:51)
[2021-07-16 05:00] LABS: #Basophils 0.1 thou/uL (0.0-0.2); #Eosinphils 0.2 thou/uL (0.0-0.7); #Lymphocytes 0.8 thou/uL (1.20-3.40); #Monocytes 0.9 thou/uL (0.11-0.59); %Eosinophils 1.7 % (0.0-10.0); %Lymphocytes 8.6 % (21.0-51.0); %Neutrophils 78.8 % (42.0-75.0); Hemoglobin 9.2 g/dL (12.0-16.0); Mean Corpuscular HGB CONC 32.2 g/dL (32.0-36.0); Mean Corpuscular Hemoglobin 27.8 pg (27.0-31.0); Mean Corpuscular Volume 86.4 fL (78.0-98.0); Mean Platelet Volume 8.8 fL (7.4-10.4); Platelet Count 179 thou/uL (130-400); RBC Distribution Width 15.7 % (11.5-14.5); White Blood Cell (WBC) Count 8.9 thou/uL (4.8-10.8)
[2021-07-16 05:25] LABS: ALT (SGPT) 12 U/L (8-55); AST (SGOT) 18 U/L (5-34); Albumin 3.5 g/dL (3.4-4.8); Alkaline Phosphatase 93 U/L (40-110); Anion Gap 12 mmol/L (10-20); BUN (Urea Nitrogen) 39 mg/dL (9.8-20.1); Bilirubin, Total 0.5 mg/dL (0.2-1.2); Calc. Creatinine Clearance 36 mL/min (70-130); Calcium 9.3 mg/dL (7.8-10.44); Carbon Dioxide 28 mmol/L (23-31); Chloride 92 mmol/L (98-107); Globulin 2.4 g/dL (2.4-3.5); Glucose 142 mg/dL (80-115); Protein, Total 5.9 g/dL (5.8-8.1); Sodium 128 mmol/L (136-145)
[2021-07-16] MEDS: HYDROcodone/Acetaminophen 5/325 mg Tablet PO PRN (09:32)
[2021-07-16] MEDS ORDERED: Heparin 10,000 UNITS/ 10 ML VIAL ONE (09:35)
[2021-07-16] MEDS ORDERED: Glycerin Adult Supp. (24 ct jar) PR SCH (11:00)
[2021-07-16] MEDS ORDERED: HYDROcodone/Acetaminophen 7.5/325 mg Tablet PO PRN (12:06)
[2021-07-16] MEDS ORDERED: Fentanyl 100 MCG/2 ML VIAL SLOW IVP PRN (12:09)
[2021-07-16] MEDS: HYDROcodone/Acetaminophen 7.5/325 mg Tablet PO PRN ×2 (14:17→20:33)
[2021-07-16] MEDS: hydrOXYzine 25 MG TAB PO PRN (14:18)
[2021-07-16] MEDS: Amlodipine 10 MG TAB PO SCH (14:19)
[2021-07-16] MEDS: Gabapentin 300 MG CAP PO SCH ×2 (14:19→20:32)
[2021-07-16] MEDS: Amiodarone 200 MG TAB PO SCH (14:20)
[2021-07-16] MEDS: Carvedilol 25 MG TAB PO SCH ×2 (14:20→20:19)
[2021-07-16] MEDS: predniSONE 20 MG TAB PO SCH (14:21)
[2021-07-16] MEDS: hydrALAZINE 25 MG TAB PO SCH ×3 (14:22→20:35)
[2021-07-16] MEDS: Aspirin 81 mg Enteric Coated Tablet PO SCH (14:24)
[2021-07-16] MEDS: Cholecalciferol 1,000 UNITS (25 MCG) TAB PO SCH (14:24)
[2021-07-16] MEDS: Lidocaine 5% Patch TD SCH (14:24)
[2021-07-16] MEDS: Lantus 1000 UNITS/10 ML VIAL SC SCH (14:24)
[2021-07-16] MEDS: Calcitriol 0.25 MCG CAP PO SCH (14:24)
[2021-07-16] MEDS: Iron Polysaccharides Complex 150 MG CAP PO SCH (14:24)
[2021-07-16] MEDS: Polyethylene Glycol 3350 17 GM Packet PO SCH ×2 (14:25→20:40)
[2021-07-16] MEDS: Senokot S 8.6-50 MG TAB PO SCH ×2 (14:25→20:34)
[2021-07-16] MEDS: Sildenafil Citrate 20 MG TAB PO SCH (14:26)
[2021-07-16] MEDS: rOPINIRole HCl 2 MG TAB PO SCH (20:35)
[2021-07-16] MEDS: Atorvastatin Calcium 40 MG TAB PO SCH (20:35)
[2021-07-16] MEDS: Transdermal Patch Removal TOP SCH ×2 (20:41→20:42)
[2021-07-16] MEDS: HumaLOG 300 UNITS/3 ML VIAL SC PRN (20:45)
[2021-07-16] MEDS ORDERED: Lorazepam 0.5 MG TAB PO SCH (21:15)
[2021-07-16] MEDS: diphenhydrAMINE 50 MG/ML VIAL IVP SCH (21:27)
[2021-07-17] MEDS: BIOTENE MOUTH SPRAY 44.3 ML PO SCH ×5 (01:43→20:42)
[2021-07-17] MEDS ORDERED: CEFAZOLIN 2 GM in Sodium Chloride 0.9% 100 ML IVPB SCH (05:00)
[2021-07-17 07:52] LABS: #Eosinphils 0.1 thou/uL (0.0-0.7); #Lymphocytes 0.6 thou/uL (1.20-3.40); #Monocytes 0.8 thou/uL (0.11-0.59); #Neutrophils 6.7 thou/uL (1.40-6.50); %Eosinophils 0.7 % (0.0-10.0); %Monocytes 9.7 % (0.0-10.0); %Neutrophils 82.7 % (42.0-75.0); Mean Corpuscular HGB CONC 31.5 g/dL (32.0-36.0); Mean Corpuscular Hemoglobin 27.5 pg (27.0-31.0); Mean Corpuscular Volume 87.4 fL (78.0-98.0); Platelet Count 141 thou/uL (130-400); RBC Distribution Width 16.1 % (11.5-14.5); Red Blood Cell (RBC) Count 3.25 mill/uL (4.20-5.40); White Blood Cell (WBC) Count 8.1 thou/uL (4.8-10.8)
[2021-07-17 08:15] LABS: ALT (SGPT) 12 U/L (8-55); AST (SGOT) 13 U/L (5-34); Albumin 3.3 g/dL (3.4-4.8); Alkaline Phosphatase 101 U/L (40-110); Anion Gap 11 mmol/L (10-20); BUN (Urea Nitrogen) 27 mg/dL (9.8-20.1); Bilirubin, Total 0.5 mg/dL (0.2-1.2); Calc. Creatinine Clearance 47 mL/min (70-130); Calcium 8.7 mg/dL (7.8-10.44); Carbon Dioxide 32 mmol/L (23-31); Chloride 98 mmol/L (98-107); Globulin 1.9 g/dL (2.4-3.5); Glucose 169 mg/dL (80-115); Potassium 4.4 mmol/L (3.5-5.1); Protein, Total 5.2 g/dL (5.8-8.1); Sodium 137 mmol/L (136-145)
[2021-07-17] MEDS: HYDROcodone/Acetaminophen 7.5/325 mg Tablet PO PRN (08:17)
[2021-07-17] MEDS: Aspirin 81 mg Enteric Coated Tablet PO SCH (08:25)
[2021-07-17] MEDS: Carvedilol 25 MG TAB PO SCH ×2 (08:25→16:20)
[2021-07-17] MEDS: hydrALAZINE 25 MG TAB PO SCH ×3 (08:26→20:40)
[2021-07-17] MEDS: Amlodipine 10 MG TAB PO SCH (08:26)
[2021-07-17] MEDS: Cholecalciferol 1,000 UNITS (25 MCG) TAB PO SCH (08:28)
[2021-07-17] MEDS: predniSONE 20 MG TAB PO SCH (08:29)
[2021-07-17] MEDS: Amiodarone 200 MG TAB PO SCH (08:29)
[2021-07-17] MEDS: Calcitriol 0.25 MCG CAP PO SCH (08:29)
[2021-07-17] MEDS: Gabapentin 300 MG CAP PO SCH ×2 (08:29→20:40)
[2021-07-17] MEDS ORDERED: Heparin 5,000 UNITS/ML VIAL ONE (10:06)
[2021-07-17] MEDS ORDERED: Bupivacaine PF 0.5% 30 ML VIAL ONE ×2 (10:06→10:20)
[2021-07-17] MEDS ORDERED: Lidocaine 1% w/Epinephrine 1:100K 20 ML VIAL ONE (10:06)
[2021-07-17] MEDS ORDERED: Protamine Sulfate 50 MG/5 ML VIAL ONE (10:06)
[2021-07-17] MEDS ORDERED: Bacitracin Zinc Ointment 30 gm TUBE ONE (12:03)
[2021-07-17] MEDS ORDERED: Acetaminophen 500 MG TAB PO PRN (12:25)
[2021-07-17] MEDS: Lantus 1000 UNITS/10 ML VIAL SC SCH (12:59)
[2021-07-17] MEDS: Polyethylene Glycol 3350 17 GM Packet PO SCH ×2 (13:01→20:41)
[2021-07-17] MEDS: Senokot S 8.6-50 MG TAB PO SCH ×2 (13:01→20:41)
[2021-07-17] MEDS: diphenhydrAMINE 50 MG/ML VIAL IVP SCH (14:01)
[2021-07-17] MEDS: HYDROcodone/Acetaminophen 7.5/325 mg Tablet PO SCH ×3 (14:02→20:39)
[2021-07-17] MEDS: Iron Polysaccharides Complex 150 MG CAP PO SCH (14:04)
[2021-07-17] MEDS: Lidocaine 5% Patch TD SCH (14:06)
[2021-07-17] MEDS: Sildenafil Citrate 20 MG TAB PO SCH (14:17)
[2021-07-17] MEDS ORDERED: HOLD VANCOMYCIN FOR LEVEL >20 FS SCH (16:00)
[2021-07-17] MEDS ORDERED: Vancomycin HCl 1.5 GM in Sodium Chloride 0.9% 250 ML 300 ML IVPB SCH (16:00)
[2021-07-17] MEDS ORDERED: VANCOMYCIN 2 GRAM/400 ML BAG 2 GM in Premix Bag 1 BAG IVPB SCH (16:00)
[2021-07-17] MEDS ORDERED: Vancomycin HCl 750 MG in Sodium Chloride 0.9% 250 ML 250 ML IVPB SCH (16:00)
[2021-07-17] MEDS ORDERED: Vancomycin 1 GM in Premix Bag 1 BAG IVPB SCH ×2 (16:00→21:00)
[2021-07-17] MEDS ORDERED: Vancomycin HCl 1.25 GM in Sodium Chloride 0.9% 250 ML 250 ML IVPB SCH (16:00)
[2021-07-17] MEDS: HumaLOG 300 UNITS/3 ML VIAL SC PRN ×2 (18:05→21:44)
[2021-07-17] MEDS: rOPINIRole HCl 2 MG TAB PO SCH (20:40)
[2021-07-17] MEDS: Atorvastatin Calcium 40 MG TAB PO SCH (20:40)
[2021-07-17] MEDS: Transdermal Patch Removal TOP SCH ×2 (20:41)
[2021-07-18] MEDS: HYDROcodone/Acetaminophen 7.5/325 mg Tablet PO SCH ×7 (00:05→23:46)
[2021-07-18] MEDS: BIOTENE MOUTH SPRAY 44.3 ML PO SCH ×5 (00:06→20:36)
[2021-07-18 04:49] LABS: #Lymphocytes 0.6 thou/uL (1.20-3.40); #Monocytes 0.9 thou/uL (0.11-0.59); #Neutrophils 8.6 thou/uL (1.40-6.50); %Eosinophils 0.3 % (0.0-10.0); %Lymphocytes 5.7 % (21.0-51.0); %Monocytes 8.4 % (0.0-10.0); %Neutrophils 85.6 % (42.0-75.0); Hemoglobin 9.2 g/dL (12.0-16.0); Mean Corpuscular HGB CONC 31.7 g/dL (32.0-36.0); Mean Corpuscular Hemoglobin 27.6 pg (27.0-31.0); Mean Platelet Volume 9.5 fL (7.4-10.4); Platelet Count 149 thou/uL (130-400); RBC Distribution Width 16.4 % (11.5-14.5); Red Blood Cell (RBC) Count 3.33 mill/uL (4.20-5.40); White Blood Cell (WBC) Count 10.1 thou/uL (4.8-10.8)
[2021-07-18 05:08] LABS: ALT (SGPT) 13 U/L (8-55); AST (SGOT) 17 U/L (5-34); Albumin 3.5 g/dL (3.4-4.8); Alkaline Phosphatase 113 U/L (40-110); Anion Gap 13 mmol/L (10-20); BUN (Urea Nitrogen) 34 mg/dL (9.8-20.1); Bilirubin, Total 0.5 mg/dL (0.2-1.2); Calc. Creatinine Clearance 41 mL/min (70-130); Calcium 9.7 mg/dL (7.8-10.44); Carbon Dioxide 29 mmol/L (23-31); Chloride 95 mmol/L (98-107); Globulin 2.6 g/dL (2.4-3.5); Glucose 264 mg/dL (80-115); Potassium 4.6 mmol/L (3.5-5.1); Protein, Total 6.1 g/dL (5.8-8.1); Sodium 132 mmol/L (136-145)
[2021-07-18] MEDS: Labetalol HCl 100 MG/20 ML VIAL SLOW IVP PRN (05:21)
[2021-07-18] MEDS: HumaLOG 300 UNITS/3 ML VIAL SC PRN ×3 (05:22→20:57)
[2021-07-18 08:45] LABS: Vancomycin, Random 18.7 ug/mL (See Comment)
[2021-07-18] MEDS ORDERED: Heparin 10,000 UNITS/ 10 ML VIAL ONE (08:57)
[2021-07-18] MEDS ORDERED: Vancomycin HCl 750 MG in Sodium Chloride 0.9% 250 ML 250 ML IVPB SCH (09:30)
[2021-07-18] MEDS ORDERED: Naloxone HCl 0.4 mg/ml Vial IVP PRN (10:08)
[2021-07-18] MEDS: Lidocaine 5% Patch TD SCH (12:08)
[2021-07-18] MEDS: Iron Polysaccharides Complex 150 MG CAP PO SCH (14:32)
[2021-07-18] MEDS: hydrALAZINE 25 MG TAB PO SCH ×3 (14:34→20:35)
[2021-07-18] MEDS: Sildenafil Citrate 20 MG TAB PO SCH (14:34)
[2021-07-18] MEDS: Senokot S 8.6-50 MG TAB PO SCH ×2 (14:35→20:35)
[2021-07-18] MEDS: Polyethylene Glycol 3350 17 GM Packet PO SCH ×2 (14:35→20:35)
[2021-07-18] MEDS: Cholecalciferol 1,000 UNITS (25 MCG) TAB PO SCH (14:35)
[2021-07-18] MEDS: Calcitriol 0.25 MCG CAP PO SCH (14:35)
[2021-07-18] MEDS: Aspirin 81 mg Enteric Coated Tablet PO SCH (14:35)
[2021-07-18] MEDS: Amlodipine 10 MG TAB PO SCH (14:36)
[2021-07-18] MEDS: Gabapentin 300 MG CAP PO SCH ×2 (14:36→20:35)
[2021-07-18] MEDS: Lantus 1000 UNITS/10 ML VIAL SC SCH (14:37)
[2021-07-18] MEDS: predniSONE 5 MG TAB PO SCH (14:37)
[2021-07-18] MEDS: Amiodarone 200 MG TAB PO SCH (14:38)
[2021-07-18] MEDS: Carvedilol 25 MG TAB PO SCH ×2 (14:38→16:35)
[2021-07-18] MEDS: Atorvastatin Calcium 40 MG TAB PO SCH (20:34)
[2021-07-18] MEDS: rOPINIRole HCl 2 MG TAB PO SCH (20:35)
[2021-07-18] MEDS: Transdermal Patch Removal TOP SCH ×2 (20:36→20:39)
[2021-07-19] MEDS: BIOTENE MOUTH SPRAY 44.3 ML PO SCH ×6 (01:36→23:23)
[2021-07-19] MEDS: hydrOXYzine 25 MG TAB PO PRN ×3 (02:04→20:57)
[2021-07-19] MEDS: HYDROcodone/Acetaminophen 7.5/325 mg Tablet PO SCH ×6 (04:13→23:55)
[2021-07-19 05:53] LABS: #Eosinphils 0.1 thou/uL (0.0-0.7); #Lymphocytes 0.7 thou/uL (1.20-3.40); #Monocytes 0.7 thou/uL (0.11-0.59); #Neutrophils 8.2 thou/uL (1.40-6.50); %Eosinophils 0.6 % (0.0-10.0); %Lymphocytes 7.3 % (21.0-51.0); %Monocytes 7.5 % (0.0-10.0); %Neutrophils 84.6 % (42.0-75.0); Hemoglobin 8.6 g/dL (12.0-16.0); Mean Corpuscular HGB CONC 31.1 g/dL (32.0-36.0); Mean Corpuscular Hemoglobin 27.1 pg (27.0-31.0); Mean Corpuscular Volume 87.2 fL (78.0-98.0); Mean Platelet Volume 9.5 fL (7.4-10.4); Platelet Count 137 thou/uL (130-400); RBC Distribution Width 16.5 % (11.5-14.5); Red Blood Cell (RBC) Count 3.18 mill/uL (4.20-5.40); White Blood Cell (WBC) Count 9.7 thou/uL (4.8-10.8)
[2021-07-19 06:13] LABS: ALT (SGPT) 9 U/L (8-55); AST (SGOT) 18 U/L (5-34); Albumin 3.3 g/dL (3.4-4.8); Alkaline Phosphatase 109 U/L (40-110); Anion Gap 8 mmol/L (10-20); BUN (Urea Nitrogen) 19 mg/dL (9.8-20.1); Bilirubin, Total 0.5 mg/dL (0.2-1.2); Calc. Creatinine Clearance 52 mL/min (70-130); Calcium 9.1 mg/dL (7.8-10.44); Carbon Dioxide 33 mmol/L (23-31); Chloride 98 mmol/L (98-107); Globulin 2.4 g/dL (2.4-3.5); Glucose 199 mg/dL (80-115); Potassium 4.2 mmol/L (3.5-5.1); Protein, Total 5.7 g/dL (5.8-8.1); Sodium 135 mmol/L (136-145)
[2021-07-19] MEDS: HumaLOG 300 UNITS/3 ML VIAL SC PRN ×2 (06:35→16:18)
[2021-07-19] MEDS: Polyethylene Glycol 3350 17 GM Packet PO SCH ×2 (08:22→21:04)
[2021-07-19] MEDS: Senokot S 8.6-50 MG TAB PO SCH ×2 (08:22→21:04)
[2021-07-19] MEDS: Carvedilol 25 MG TAB PO SCH ×2 (08:57→16:18)
[2021-07-19] MEDS: Amlodipine 10 MG TAB PO SCH (08:58)
[2021-07-19] MEDS: predniSONE 5 MG TAB PO SCH (08:58)
[2021-07-19] MEDS: Sildenafil Citrate 20 MG TAB PO SCH (08:58)
[2021-07-19] MEDS: Calcitriol 0.25 MCG CAP PO SCH (08:58)
[2021-07-19] MEDS: Gabapentin 300 MG CAP PO SCH ×2 (08:59→20:57)
[2021-07-19] MEDS: hydrALAZINE 25 MG TAB PO SCH ×3 (08:59→20:58)
[2021-07-19] MEDS: Cholecalciferol 1,000 UNITS (25 MCG) TAB PO SCH (08:59)
[2021-07-19] MEDS: Amiodarone 200 MG TAB PO SCH (08:59)
[2021-07-19] MEDS: Aspirin 81 mg Enteric Coated Tablet PO SCH (09:00)
[2021-07-19] MEDS: Iron Polysaccharides Complex 150 MG CAP PO SCH (09:00)
[2021-07-19] MEDS: Lantus 1000 UNITS/10 ML VIAL SC SCH ×2 (09:01→21:07)
[2021-07-19] MEDS: Lidocaine 5% Patch TD SCH (09:02)
[2021-07-19] MEDS: Ondansetron PF 4 MG/2 ML Vial IVP PRN ×2 (12:44→19:26)
[2021-07-19] MEDS: Atorvastatin Calcium 40 MG TAB PO SCH (20:57)
[2021-07-19] MEDS: rOPINIRole HCl 2 MG TAB PO SCH (20:57)
[2021-07-19] MEDS: Transdermal Patch Removal TOP SCH ×2 (21:07)
[2021-07-20] MEDS: Melatonin 3 MG TAB PO PRN (01:35)
[2021-07-20] MEDS: Ondansetron PF 4 MG/2 ML Vial IVP PRN (01:40)
[2021-07-20] MEDS: HYDROcodone/Acetaminophen 7.5/325 mg Tablet PO SCH ×5 (04:07→20:23)
[2021-07-20 05:25] LABS: #Eosinphils 0.2 thou/uL (0.0-0.7); #Neutrophils 9.3 thou/uL (1.40-6.50); %Basophils 0.4 % (0.0-1.0); %Eosinophils 1.4 % (0.0-10.0); %Lymphocytes 8.5 % (21.0-51.0); %Monocytes 8.7 % (0.0-10.0); %Neutrophils 81.2 % (42.0-75.0); Hemoglobin 9.2 g/dL (12.0-16.0); Mean Corpuscular Hemoglobin 27.6 pg (27.0-31.0); Mean Corpuscular Volume 89.1 fL (78.0-98.0); Mean Platelet Volume 9.8 fL (7.4-10.4); Platelet Count 142 thou/uL (130-400); RBC Distribution Width 16.7 % (11.5-14.5); Red Blood Cell (RBC) Count 3.33 mill/uL (4.20-5.40); White Blood Cell (WBC) Count 11.5 thou/uL (4.8-10.8)
[2021-07-20 05:58] LABS: ALT (SGPT) 9 U/L (8-55); AST (SGOT) 20 U/L (5-34); Albumin 3.6 g/dL (3.4-4.8); Alkaline Phosphatase 120 U/L (40-110); Anion Gap 14 mmol/L (10-20); BUN (Urea Nitrogen) 25 mg/dL (9.8-20.1); Bilirubin, Total 0.5 mg/dL (0.2-1.2); Calc. Creatinine Clearance 42 mL/min (70-130); Calcium 9.9 mg/dL (7.8-10.44); Carbon Dioxide 29 mmol/L (23-31); Chloride 95 mmol/L (98-107); Globulin 2.4 g/dL (2.4-3.5); Glucose 113 mg/dL (80-115); Potassium 4.5 mmol/L (3.5-5.1); Sodium 133 mmol/L (136-145)
[2021-07-20] MEDS: BIOTENE MOUTH SPRAY 44.3 ML PO SCH ×4 (07:36→20:54)
[2021-07-20] MEDS: Polyethylene Glycol 3350 17 GM Packet PO SCH ×2 (07:37→20:55)
[2021-07-20] MEDS: Senokot S 8.6-50 MG TAB PO SCH ×2 (07:37→20:55)
[2021-07-20 07:57] LABS: Vancomycin, Random 11.4 ug/mL (See Comment)
[2021-07-20] MEDS ORDERED: Heparin 10,000 UNITS/ 10 ML VIAL ONE (12:03)
[2021-07-20] MEDS: hydrALAZINE 25 MG TAB PO SCH ×3 (13:06→20:55)
[2021-07-20] MEDS: Carvedilol 25 MG TAB PO SCH ×2 (13:06→17:54)
[2021-07-20] MEDS: Amlodipine 10 MG TAB PO SCH (13:07)
[2021-07-20] MEDS: Aspirin 81 mg Enteric Coated Tablet PO SCH (13:07)
[2021-07-20] MEDS: Cholecalciferol 1,000 UNITS (25 MCG) TAB PO SCH (13:07)
[2021-07-20] MEDS: Calcitriol 0.25 MCG CAP PO SCH (13:07)
[2021-07-20] MEDS: Amiodarone 200 MG TAB PO SCH (13:08)
[2021-07-20] MEDS: Gabapentin 300 MG CAP PO SCH ×2 (13:08→20:24)
[2021-07-20] MEDS: Iron Polysaccharides Complex 150 MG CAP PO SCH (13:09)
[2021-07-20] MEDS: Lantus 1000 UNITS/10 ML VIAL SC SCH ×2 (13:09→20:55)
[2021-07-20] MEDS: Lidocaine 5% Patch TD SCH (13:09)
[2021-07-20] MEDS: Sildenafil Citrate 20 MG TAB PO SCH (13:09)
[2021-07-20] MEDS: hydrOXYzine 25 MG TAB PO PRN ×2 (13:34→20:26)
[2021-07-20] MEDS: Atorvastatin Calcium 40 MG TAB PO SCH (20:26)
[2021-07-20] MEDS: rOPINIRole HCl 2 MG TAB PO SCH (20:26)
[2021-07-20] MEDS: Transdermal Patch Removal TOP SCH ×2 (22:10)
[2021-07-21] MEDS: BIOTENE MOUTH SPRAY 44.3 ML PO SCH ×5 (00:14→20:51)
[2021-07-21] MEDS: HYDROcodone/Acetaminophen 7.5/325 mg Tablet PO SCH ×6 (00:15→20:54)
[2021-07-21] MEDS: hydrOXYzine 25 MG TAB PO PRN ×2 (01:21→20:55)
[2021-07-21 04:46] LABS: ALT (SGPT) 8 U/L (8-55); AST (SGOT) 19 U/L (5-34); Albumin 3.2 g/dL (3.4-4.8); Alkaline Phosphatase 103 U/L (40-110); Anion Gap 11 mmol/L (10-20); BUN (Urea Nitrogen) 14 mg/dL (9.8-20.1); Bilirubin, Total 0.5 mg/dL (0.2-1.2); Calc. Creatinine Clearance 56 mL/min (70-130); Calcium 9.2 mg/dL (7.8-10.44); Carbon Dioxide 31 mmol/L (23-31); Chloride 98 mmol/L (98-107); Globulin 2.3 g/dL (2.4-3.5); Glucose 139 mg/dL (80-115); Potassium 3.9 mmol/L (3.5-5.1); Protein, Total 5.5 g/dL (5.8-8.1); Sodium 136 mmol/L (136-145)
[2021-07-21 05:08] LABS: #Eosinphils 0.2 thou/uL (0.0-0.7); #Lymphocytes 0.7 thou/uL (1.20-3.40); #Monocytes 0.8 thou/uL (0.11-0.59); #Neutrophils 7.1 thou/uL (1.40-6.50); %Basophils 0.4 % (0.0-1.0); %Monocytes 8.7 % (0.0-10.0); %Neutrophils 80.9 % (42.0-75.0); Hemoglobin 8.6 g/dL (12.0-16.0); Mean Corpuscular HGB CONC 31.4 g/dL (32.0-36.0); Mean Corpuscular Hemoglobin 27.9 pg (27.0-31.0); Mean Corpuscular Volume 88.8 fL (78.0-98.0); Mean Platelet Volume 9.7 fL (7.4-10.4); Platelet Count 119 thou/uL (130-400); Platelet Morphology Comment Appears Decreased; RBC Distribution Width 16.7 % (11.5-14.5); Red Blood Cell (RBC) Count 3.07 mill/uL (4.20-5.40); White Blood Cell (WBC) Count 8.8 thou/uL (4.8-10.8)
[2021-07-21] MEDS: HumaLOG 300 UNITS/3 ML VIAL SC PRN (06:21)
[2021-07-21] MEDS: Aspirin 81 mg Enteric Coated Tablet PO SCH (08:44)
[2021-07-21] MEDS: Amiodarone 200 MG TAB PO SCH (08:44)
[2021-07-21] MEDS: hydrALAZINE 25 MG TAB PO SCH ×3 (08:44→20:51)
[2021-07-21] MEDS: Calcitriol 0.25 MCG CAP PO SCH (08:45)
[2021-07-21] MEDS: Amlodipine 10 MG TAB PO SCH (08:45)
[2021-07-21] MEDS: Carvedilol 25 MG TAB PO SCH ×2 (08:46→16:39)
[2021-07-21] MEDS: Gabapentin 300 MG CAP PO SCH ×2 (08:46→20:52)
[2021-07-21] MEDS: Senokot S 8.6-50 MG TAB PO SCH ×2 (08:48→20:53)
[2021-07-21] MEDS: Polyethylene Glycol 3350 17 GM Packet PO SCH ×2 (08:48→20:53)
[2021-07-21] MEDS: Sildenafil Citrate 20 MG TAB PO SCH (08:49)
[2021-07-21] MEDS: Lidocaine 5% Patch TD SCH ×2 (08:51→09:00)
[2021-07-21] MEDS: Iron Polysaccharides Complex 150 MG CAP PO SCH (08:54)
[2021-07-21] MEDS: Lantus 1000 UNITS/10 ML VIAL SC SCH ×2 (09:05→20:53)
[2021-07-21] MEDS: Cholecalciferol 1,000 UNITS (25 MCG) TAB PO SCH (09:50)
[2021-07-21] MEDS: EPOETIN ALFA-EPBX (ESRD) 4,000 UNIT/ML VIAL SC SCH (16:40)
[2021-07-21] MEDS: Atorvastatin Calcium 40 MG TAB PO SCH (20:51)
[2021-07-21] MEDS: rOPINIRole HCl 2 MG TAB PO SCH (20:51)
[2021-07-21] MEDS: Transdermal Patch Removal TOP SCH ×2 (20:54)
[2021-07-21] MEDS: Melatonin 3 MG TAB PO PRN (20:55)
[2021-07-22] MEDS: HYDROcodone/Acetaminophen 7.5/325 mg Tablet PO SCH ×7 (00:43→23:30)
[2021-07-22] MEDS: BIOTENE MOUTH SPRAY 44.3 ML PO SCH ×5 (00:49→20:40)
[2021-07-22] MEDS: Cholecalciferol 1,000 UNITS (25 MCG) TAB PO SCH (08:42)
[2021-07-22] MEDS: Amiodarone 200 MG TAB PO SCH (08:42)
[2021-07-22] MEDS: Amlodipine 10 MG TAB PO SCH (08:42)
[2021-07-22] MEDS: Senokot S 8.6-50 MG TAB PO SCH ×2 (08:42→20:41)
[2021-07-22] MEDS: hydrALAZINE 25 MG TAB PO SCH ×3 (08:43→20:40)
[2021-07-22] MEDS: Aspirin 81 mg Enteric Coated Tablet PO SCH (08:44)
[2021-07-22] MEDS: Calcitriol 0.25 MCG CAP PO SCH (08:44)
[2021-07-22] MEDS: Carvedilol 25 MG TAB PO SCH ×2 (08:44→16:16)
[2021-07-22] MEDS: Gabapentin 300 MG CAP PO SCH ×2 (08:45→20:39)
[2021-07-22] MEDS: Polyethylene Glycol 3350 17 GM Packet PO SCH ×2 (08:46→20:41)
[2021-07-22] MEDS: Lidocaine 5% Patch TD SCH (08:46)
[2021-07-22] MEDS ORDERED: Cefuroxime Axetil 250 MG TAB PO SCH ×2 (09:00)
[2021-07-22] MEDS: Iron Polysaccharides Complex 150 MG CAP PO SCH (10:10)
[2021-07-22] MEDS: Sildenafil Citrate 20 MG TAB PO SCH (10:10)
[2021-07-22] MEDS: Cefuroxime Axetil 250 MG TAB PO SCH (10:12)
[2021-07-22] MEDS: Lantus 1000 UNITS/10 ML VIAL SC SCH ×2 (10:17→20:40)
[2021-07-22 10:43] LABS: Anion Gap 10 mmol/L (10-20); BUN (Urea Nitrogen) 22 mg/dL (9.8-20.1); Calc. Creatinine Clearance 42 mL/min (70-130); Calcium 9.1 mg/dL (7.8-10.44); Carbon Dioxide 29 mmol/L (23-31); Chloride 95 mmol/L (98-107); Glucose 124 mg/dL (80-115); Potassium 4.4 mmol/L (3.5-5.1); Sodium 130 mmol/L (136-145)
[2021-07-22] MEDS ORDERED: Nystatin Powder 15 GM BOT TOP PRN (10:57)
[2021-07-22 11:06] LABS: #Eosinphils 0.1 thou/uL (0.0-0.7); #Lymphocytes 0.6 thou/uL (1.20-3.40); #Monocytes 0.7 thou/uL (0.11-0.59); #Neutrophils 6.2 thou/uL (1.40-6.50); %Basophils 0.1 % (0.0-1.0); %Eosinophils 1.9 % (0.0-10.0); %Lymphocytes 7.6 % (21.0-51.0); %Monocytes 8.7 % (0.0-10.0); %Neutrophils 81.8 % (42.0-75.0); Hemoglobin 7.9 g/dL (12.0-16.0); Mean Corpuscular Hemoglobin 26.8 pg (27.0-31.0); Mean Corpuscular Volume 89.4 fL (78.0-98.0); Mean Platelet Volume 9.9 fL (7.4-10.4); Platelet Count 100 thou/uL (130-400); RBC Distribution Width 16.4 % (11.5-14.5); Red Blood Cell (RBC) Count 2.93 mill/uL (4.20-5.40); White Blood Cell (WBC) Count 7.6 thou/uL (4.8-10.8)
[2021-07-22 11:09] LABS: Hypochromia SLIGHT = 6-15 cells (100X) (0-5/hpf); MDiff Complete? YES; Platelet Morphology Comment Appears Decreased; Polychromasia SLIGHT = 2-3 cells (100X) (0-2/hpf)
[2021-07-22 11:49] LABS: SARS-CoV-2 PCR by NAA Not Detected (NotDetected)
[2021-07-22] MEDS: rOPINIRole HCl 2 MG TAB PO SCH (20:38)
[2021-07-22] MEDS: Atorvastatin Calcium 40 MG TAB PO SCH (20:39)
[2021-07-22] MEDS: Transdermal Patch Removal TOP SCH ×2 (20:41)
[2021-07-22] MEDS: hydrOXYzine 25 MG TAB PO PRN (20:54)
[2021-07-23] MEDS: BIOTENE MOUTH SPRAY 44.3 ML PO SCH ×5 (01:18→20:18)
[2021-07-23] MEDS: hydrOXYzine 25 MG TAB PO PRN ×2 (03:32→20:09)
[2021-07-23] MEDS: HYDROcodone/Acetaminophen 7.5/325 mg Tablet PO SCH ×6 (03:32→23:28)
[2021-07-23 05:56] LABS: #Basophils 0.1 thou/uL (0.0-0.2); #Eosinphils 0.2 thou/uL (0.0-0.7); #Lymphocytes 0.6 thou/uL (1.20-3.40); #Monocytes 0.8 thou/uL (0.11-0.59); #Neutrophils 7.8 thou/uL (1.40-6.50); %Basophils 0.6 % (0.0-1.0); %Eosinophils 1.9 % (0.0-10.0); %Lymphocytes 6.6 % (21.0-51.0); %Monocytes 8.5 % (0.0-10.0); %Neutrophils 82.4 % (42.0-75.0); Hemoglobin 8.6 g/dL (12.0-16.0); Mean Corpuscular HGB CONC 30.6 g/dL (32.0-36.0); Mean Corpuscular Hemoglobin 27.4 pg (27.0-31.0); Mean Corpuscular Volume 89.7 fL (78.0-98.0); Mean Platelet Volume 10.1 fL (7.4-10.4); Platelet Count 104 thou/uL (130-400); RBC Distribution Width 16.5 % (11.5-14.5); Red Blood Cell (RBC) Count 3.15 mill/uL (4.20-5.40); White Blood Cell (WBC) Count 9.4 thou/uL (4.8-10.8)
[2021-07-23 06:12] LABS: Anion Gap 12 mmol/L (10-20); BUN (Urea Nitrogen) 26 mg/dL (9.8-20.1); Calc. Creatinine Clearance 37 mL/min (70-130); Calcium 9.5 mg/dL (7.8-10.44); Carbon Dioxide 30 mmol/L (23-31); Chloride 91 mmol/L (98-107); Glucose 130 mg/dL (80-115); Potassium 4.9 mmol/L (3.5-5.1); Sodium 128 mmol/L (136-145)
[2021-07-23] MEDS: Amlodipine 10 MG TAB PO SCH (08:54)
[2021-07-23] MEDS: hydrALAZINE 25 MG TAB PO SCH ×3 (08:54→20:09)
[2021-07-23] MEDS: Sildenafil Citrate 20 MG TAB PO SCH (08:55)
[2021-07-23] MEDS: Cefuroxime Axetil 250 MG TAB PO SCH (08:56)
[2021-07-23] MEDS: Gabapentin 300 MG CAP PO SCH ×2 (08:56→20:06)
[2021-07-23] MEDS: Aspirin 81 mg Enteric Coated Tablet PO SCH (08:56)
[2021-07-23] MEDS: Calcitriol 0.25 MCG CAP PO SCH (09:00)
[2021-07-23] MEDS: Amiodarone 200 MG TAB PO SCH (09:00)
[2021-07-23] MEDS: Carvedilol 25 MG TAB PO SCH ×2 (09:00→15:36)
[2021-07-23] MEDS: Iron Polysaccharides Complex 150 MG CAP PO SCH (09:00)
[2021-07-23] MEDS: Cholecalciferol 1,000 UNITS (25 MCG) TAB PO SCH (09:01)
[2021-07-23] MEDS: Lidocaine 5% Patch TD SCH (09:01)
[2021-07-23] MEDS: Lantus 1000 UNITS/10 ML VIAL SC SCH ×2 (09:01→20:23)
[2021-07-23] MEDS: Senokot S 8.6-50 MG TAB PO SCH ×2 (09:02→20:27)
[2021-07-23] MEDS: Polyethylene Glycol 3350 17 GM Packet PO SCH ×2 (09:02→20:18)
[2021-07-23] MEDS ORDERED: Heparin 10,000 UNITS/ 10 ML VIAL ONE (12:49)
[2021-07-23] MEDS: Acetaminophen 500 MG TAB PO PRN (17:31)
[2021-07-23] MEDS ORDERED: Ondansetron ODT 4 MG TAB PO PRN (18:34)
[2021-07-23] MEDS ORDERED: VANCOMYCIN 2 GRAM/400 ML BAG 2 GM in Premix Bag 1 BAG IVPB SCH (19:15)
[2021-07-23] MEDS ORDERED: Vancomycin 1 GM in Premix Bag 1 BAG IVPB SCH (19:15)
[2021-07-23] MEDS: Atorvastatin Calcium 40 MG TAB PO SCH (20:05)
[2021-07-23] MEDS: Melatonin 3 MG TAB PO PRN (20:12)
[2021-07-23] MEDS: rOPINIRole HCl 2 MG TAB PO SCH (20:12)
[2021-07-23] MEDS: Transdermal Patch Removal TOP SCH ×2 (20:27)
[2021-07-24] MEDS: BIOTENE MOUTH SPRAY 44.3 ML PO SCH ×5 (00:18→20:10)
[2021-07-24] MEDS: HYDROcodone/Acetaminophen 7.5/325 mg Tablet PO SCH ×5 (05:01→20:03)
[2021-07-24 05:52] LABS: #Eosinphils 0.1 thou/uL (0.0-0.7); #Lymphocytes 0.5 thou/uL (1.20-3.40); #Monocytes 0.6 thou/uL (0.11-0.59); #Neutrophils 6.3 thou/uL (1.40-6.50); %Basophils 0.5 % (0.0-1.0); %Eosinophils 1.4 % (0.0-10.0); %Lymphocytes 6.6 % (21.0-51.0); %Monocytes 8.3 % (0.0-10.0); %Neutrophils 83.2 % (42.0-75.0); Hemoglobin 8.2 g/dL (12.0-16.0); Mean Corpuscular HGB CONC 30.8 g/dL (32.0-36.0); Mean Corpuscular Hemoglobin 27.4 pg (27.0-31.0); Mean Platelet Volume 10.4 fL (7.4-10.4); Platelet Count 96 thou/uL (130-400); RBC Distribution Width 16.5 % (11.5-14.5); White Blood Cell (WBC) Count 7.6 thou/uL (4.8-10.8)
[2021-07-24] MEDS: Cholecalciferol 1,000 UNITS (25 MCG) TAB PO SCH (09:07)
[2021-07-24] MEDS: Iron Polysaccharides Complex 150 MG CAP PO SCH (09:07)
[2021-07-24] MEDS: hydrALAZINE 25 MG TAB PO SCH ×3 (09:08→20:06)
[2021-07-24] MEDS: Aspirin 81 mg Enteric Coated Tablet PO SCH (09:09)
[2021-07-24] MEDS: Amiodarone 200 MG TAB PO SCH (09:09)
[2021-07-24] MEDS: Senokot S 8.6-50 MG TAB PO SCH ×2 (09:09→20:10)
[2021-07-24] MEDS: Sildenafil Citrate 20 MG TAB PO SCH (09:09)
[2021-07-24] MEDS: Gabapentin 300 MG CAP PO SCH ×2 (09:09→20:05)
[2021-07-24] MEDS: Cefuroxime Axetil 250 MG TAB PO SCH (09:09)
[2021-07-24] MEDS: Calcitriol 0.25 MCG CAP PO SCH (09:09)
[2021-07-24] MEDS: Polyethylene Glycol 3350 17 GM Packet PO SCH ×2 (09:10→20:12)
[2021-07-24] MEDS: Carvedilol 25 MG TAB PO SCH ×2 (09:10→16:52)
[2021-07-24] MEDS: Lantus 1000 UNITS/10 ML VIAL SC SCH ×2 (09:15→20:10)
[2021-07-24] MEDS: Amlodipine 10 MG TAB PO SCH (09:16)
[2021-07-24] MEDS: Lidocaine 5% Patch TD SCH (09:19)
[2021-07-24 09:34] LABS: Anion Gap 12 mmol/L (10-20); BUN (Urea Nitrogen) 18 mg/dL (9.8-20.1); Calc. Creatinine Clearance 42 mL/min (70-130); Calcium 9.3 mg/dL (7.8-10.44); Carbon Dioxide 28 mmol/L (23-31); Chloride 92 mmol/L (98-107); Glucose 113 mg/dL (80-115); Potassium 4.4 mmol/L (3.5-5.1); Sodium 128 mmol/L (136-145)
[2021-07-24] MEDS: hydrOXYzine 25 MG TAB PO PRN ×2 (12:50→20:06)
[2021-07-24] MEDS ORDERED: HOLD VANCOMYCIN FOR LEVEL >20 FS SCH (13:00)
[2021-07-24] MEDS ORDERED: Vancomycin 1 GM in Premix Bag 1 BAG IVPB SCH (13:00)
[2021-07-24] MEDS ORDERED: VANCOMYCIN 2 GRAM/400 ML BAG 2 GM in Premix Bag 1 BAG IVPB SCH (13:00)
[2021-07-24] MEDS ORDERED: Vancomycin HCl 750 MG in Sodium Chloride 0.9% 250 ML 250 ML IVPB SCH (13:00)
[2021-07-24] MEDS ORDERED: Vancomycin HCl 1.25 GM in Sodium Chloride 0.9% 250 ML 250 ML IVPB SCH (13:00)
[2021-07-24] MEDS ORDERED: Vancomycin HCl 1.5 GM in Sodium Chloride 0.9% 250 ML 300 ML IVPB SCH (13:00)
[2021-07-24] MEDS ORDERED: hydrALAZINE 20 MG/ML VIAL SLOW IVP PRN (15:47)
[2021-07-24] MEDS: Atorvastatin Calcium 40 MG TAB PO SCH (20:05)
[2021-07-24] MEDS: Melatonin 3 MG TAB PO PRN (20:06)
[2021-07-24] MEDS: rOPINIRole HCl 2 MG TAB PO SCH (20:06)
[2021-07-24] MEDS: Transdermal Patch Removal TOP SCH ×2 (20:12)
[2021-07-24] MEDS ORDERED: Oxymetazoline HCl 0.05% (30 ML BOT) NS SCH (23:00)
[2021-07-25] MEDS: HYDROcodone/Acetaminophen 7.5/325 mg Tablet PO SCH ×7 (01:05→23:48)
[2021-07-25] MEDS: BIOTENE MOUTH SPRAY 44.3 ML PO SCH ×6 (01:09→23:51)
[2021-07-25 07:26] LABS: #Eosinphils 0.1 thou/uL (0.0-0.7); #Lymphocytes 0.7 thou/uL (1.20-3.40); #Monocytes 0.7 thou/uL (0.11-0.59); #Neutrophils 5.4 thou/uL (1.40-6.50); %Basophils 0.3 % (0.0-1.0); %Eosinophils 1.7 % (0.0-10.0); %Lymphocytes 10.5 % (21.0-51.0); %Monocytes 10.1 % (0.0-10.0); %Neutrophils 77.3 % (42.0-75.0); Hemoglobin 8.5 g/dL (12.0-16.0); Mean Corpuscular Hemoglobin 27.6 pg (27.0-31.0); Mean Corpuscular Volume 89.3 fL (78.0-98.0); Mean Platelet Volume 10.1 fL (7.4-10.4); Platelet Count 105 thou/uL (130-400); RBC Distribution Width 16.4 % (11.5-14.5); Red Blood Cell (RBC) Count 3.05 mill/uL (4.20-5.40); White Blood Cell (WBC) Count 6.9 thou/uL (4.8-10.8)
[2021-07-25 07:29] LABS: Anion Gap 14 mmol/L (10-20); BUN (Urea Nitrogen) 23 mg/dL (9.8-20.1); Calc. Creatinine Clearance 36 mL/min (70-130); Calcium 9.5 mg/dL (7.8-10.44); Carbon Dioxide 27 mmol/L (23-31); Chloride 90 mmol/L (98-107); Glucose 99 mg/dL (80-115); Potassium 4.3 mmol/L (3.5-5.1); Sodium 127 mmol/L (136-145); Vancomycin, Random 20.8 ug/mL (See Comment)
[2021-07-25] MEDS: Sildenafil Citrate 20 MG TAB PO SCH (08:12)
[2021-07-25] MEDS: Cholecalciferol 1,000 UNITS (25 MCG) TAB PO SCH (08:13)
[2021-07-25] MEDS: Gabapentin 300 MG CAP PO SCH ×2 (08:13→20:05)
[2021-07-25] MEDS: Amlodipine 10 MG TAB PO SCH (08:14)
[2021-07-25] MEDS: hydrALAZINE 25 MG TAB PO SCH ×3 (08:15→20:03)
[2021-07-25] MEDS: Aspirin 81 mg Enteric Coated Tablet PO SCH (08:15)
[2021-07-25] MEDS: Iron Polysaccharides Complex 150 MG CAP PO SCH (08:15)
[2021-07-25] MEDS: Amiodarone 200 MG TAB PO SCH (08:15)
[2021-07-25] MEDS: Calcitriol 0.25 MCG CAP PO SCH (08:16)
[2021-07-25] MEDS: Polyethylene Glycol 3350 17 GM Packet PO SCH ×2 (08:17→21:34)
[2021-07-25] MEDS: Senokot S 8.6-50 MG TAB PO SCH ×2 (08:17→20:04)
[2021-07-25] MEDS: Lidocaine 5% Patch TD SCH (08:17)
[2021-07-25] MEDS: Lantus 1000 UNITS/10 ML VIAL SC SCH ×2 (08:17→21:34)
[2021-07-25] MEDS: Carvedilol 25 MG TAB PO SCH ×2 (08:20→16:51)
[2021-07-25] MEDS ORDERED: Heparin 10,000 UNITS/ 10 ML VIAL ONE (09:04)
[2021-07-25] MEDS: hydrOXYzine 25 MG TAB PO PRN (15:38)
[2021-07-25] MEDS: Donepezil HCl 5 MG TAB PO SCH (20:03)
[2021-07-25] MEDS: Atorvastatin Calcium 40 MG TAB PO SCH (20:03)
[2021-07-25] MEDS: rOPINIRole HCl 2 MG TAB PO SCH (20:04)
[2021-07-25] MEDS: Melatonin 3 MG TAB PO PRN (20:05)
[2021-07-25] MEDS: Transdermal Patch Removal TOP SCH ×2 (21:35)
[2021-07-26] MEDS: HYDROcodone/Acetaminophen 7.5/325 mg Tablet PO SCH ×5 (04:13→21:15)
[2021-07-26 06:32] LABS: Anion Gap 12 mmol/L (10-20); BUN (Urea Nitrogen) 15 mg/dL (9.8-20.1); Calc. Creatinine Clearance 39 mL/min (70-130); Calcium 9.1 mg/dL (7.8-10.44); Carbon Dioxide 27 mmol/L (23-31); Chloride 94 mmol/L (98-107); Glucose 140 mg/dL (80-115); Sodium 129 mmol/L (136-145)
[2021-07-26] MEDS: Polyethylene Glycol 3350 17 GM Packet PO SCH ×2 (08:35→21:19)
[2021-07-26] MEDS: Cholecalciferol 1,000 UNITS (25 MCG) TAB PO SCH (08:35)
[2021-07-26] MEDS: Lantus 1000 UNITS/10 ML VIAL SC SCH (08:35)
[2021-07-26] MEDS: Lidocaine 5% Patch TD SCH (08:35)
[2021-07-26] MEDS: BIOTENE MOUTH SPRAY 44.3 ML PO SCH ×5 (08:35→23:10)
[2021-07-26] MEDS: Gabapentin 300 MG CAP PO SCH ×2 (08:43→21:17)
[2021-07-26] MEDS: Iron Polysaccharides Complex 150 MG CAP PO SCH (08:44)
[2021-07-26] MEDS: Calcitriol 0.25 MCG CAP PO SCH (08:44)
[2021-07-26] MEDS: Aspirin 81 mg Enteric Coated Tablet PO SCH (08:44)
[2021-07-26] MEDS: Senokot S 8.6-50 MG TAB PO SCH ×2 (08:44→21:19)
[2021-07-26] MEDS: hydrOXYzine 25 MG TAB PO PRN ×2 (08:50→18:03)
[2021-07-26] MEDS: Amiodarone 200 MG TAB PO SCH (10:31)
[2021-07-26] MEDS: Sildenafil Citrate 20 MG TAB PO SCH (10:31)
[2021-07-26] MEDS: Carvedilol 25 MG TAB PO SCH ×2 (10:32→18:03)
[2021-07-26] MEDS: hydrALAZINE 25 MG TAB PO SCH ×3 (10:32→21:17)
[2021-07-26] MEDS: Amlodipine 10 MG TAB PO SCH (10:32)
[2021-07-26] MEDS: Atorvastatin Calcium 40 MG TAB PO SCH (21:16)
[2021-07-26] MEDS: Donepezil HCl 5 MG TAB PO SCH (21:17)
[2021-07-26] MEDS: Transdermal Patch Removal TOP SCH ×2 (21:20)
[2021-07-26] MEDS: rOPINIRole HCl 2 MG TAB PO SCH (21:22)
[2021-07-26] MEDS: Melatonin 3 MG TAB PO PRN (22:22)
[2021-07-27] MEDS: HYDROcodone/Acetaminophen 7.5/325 mg Tablet PO SCH ×4 (02:31→11:25)
[2021-07-27] MEDS: hydrOXYzine 25 MG TAB PO PRN ×2 (05:23→22:57)
[2021-07-27 06:32] LABS: Anion Gap 12 mmol/L (10-20); BUN (Urea Nitrogen) 18 mg/dL (9.8-20.1); Calc. Creatinine Clearance 34 mL/min (70-130); Calcium 9.6 mg/dL (7.8-10.44); Carbon Dioxide 27 mmol/L (23-31); Chloride 92 mmol/L (98-107); Glucose 95 mg/dL (80-115); Potassium 4.3 mmol/L (3.5-5.1); Sodium 127 mmol/L (136-145)
[2021-07-27] MEDS: BIOTENE MOUTH SPRAY 44.3 ML PO SCH ×4 (07:45→20:20)
[2021-07-27] MEDS: Sildenafil Citrate 20 MG TAB PO SCH (08:11)
[2021-07-27] MEDS: Senokot S 8.6-50 MG TAB PO SCH ×2 (08:11→20:21)
[2021-07-27] MEDS: Cholecalciferol 1,000 UNITS (25 MCG) TAB PO SCH (08:11)
[2021-07-27] MEDS: Calcitriol 0.25 MCG CAP PO SCH (08:11)
[2021-07-27] MEDS: Aspirin 81 mg Enteric Coated Tablet PO SCH (08:11)
[2021-07-27] MEDS: Gabapentin 300 MG CAP PO SCH ×2 (08:11→20:21)
[2021-07-27] MEDS: Iron Polysaccharides Complex 150 MG CAP PO SCH (08:11)
[2021-07-27] MEDS: Amiodarone 200 MG TAB PO SCH (08:12)
[2021-07-27] MEDS: Ondansetron PF 4 MG/2 ML Vial IVP PRN ×2 (08:16→18:12)
[2021-07-27] MEDS: Carvedilol 25 MG TAB PO SCH ×2 (08:20→17:26)
[2021-07-27] MEDS: hydrALAZINE 25 MG TAB PO SCH ×3 (08:21→20:21)
[2021-07-27] MEDS: Amlodipine 10 MG TAB PO SCH (08:21)
[2021-07-27] MEDS: Lidocaine 5% Patch TD SCH (08:22)
[2021-07-27] MEDS: Polyethylene Glycol 3350 17 GM Packet PO SCH (08:22)
[2021-07-27] MEDS ORDERED: Heparin 10,000 UNITS/ 10 ML VIAL ONE (09:21)
[2021-07-27] MEDS ORDERED: Vancomycin 1 GM in Premix Bag 1 BAG IVPB SCH (12:00)
[2021-07-27] MEDS: HYDROcodone/Acetaminophen 7.5/325 mg Tablet PO PRN ×2 (15:44→20:22)
[2021-07-27] MEDS ORDERED: Polyethylene Glycol 3350 17 GM Packet PO PRN (18:37)
[2021-07-27] MEDS ORDERED: Carvedilol 25 MG TAB PO SCH (19:30)
[2021-07-27] MEDS: Atorvastatin Calcium 40 MG TAB PO SCH (20:20)
[2021-07-27] MEDS: Donepezil HCl 5 MG TAB PO SCH (20:20)
[2021-07-27] MEDS: Transdermal Patch Removal TOP SCH ×2 (20:25→20:26)
[2021-07-27] MEDS: rOPINIRole HCl 2 MG TAB PO SCH (21:31)
[2021-07-28] MEDS: BIOTENE MOUTH SPRAY 44.3 ML PO SCH ×5 (00:28→20:33)
[2021-07-28] MEDS: HYDROcodone/Acetaminophen 7.5/325 mg Tablet PO PRN ×4 (02:23→20:26)
[2021-07-28 04:26] LABS: Anion Gap 10 mmol/L (10-20); BUN (Urea Nitrogen) 9 mg/dL (9.8-20.1); Calc. Creatinine Clearance 52 mL/min (70-130); Calcium 8.3 mg/dL (7.8-10.44); Carbon Dioxide 30 mmol/L (23-31); Chloride 98 mmol/L (98-107); Glucose 111 mg/dL (80-115); Potassium 3.5 mmol/L (3.5-5.1); Sodium 134 mmol/L (136-145)
[2021-07-28] MEDS: Acetaminophen 500 MG TAB PO PRN (05:20)
[2021-07-28] MEDS: hydrOXYzine 25 MG TAB PO PRN ×3 (05:21→20:26)
[2021-07-28 05:31] VITALS: BMI 44.1
[2021-07-28] MEDS: Ondansetron PF 4 MG/2 ML Vial IVP PRN ×2 (08:28→20:18)
[2021-07-28] MEDS: Aspirin 81 mg Enteric Coated Tablet PO SCH (08:36)
[2021-07-28] MEDS: Calcitriol 0.25 MCG CAP PO SCH (08:36)
[2021-07-28] MEDS: Cholecalciferol 1,000 UNITS (25 MCG) TAB PO SCH (08:36)
[2021-07-28] MEDS: Gabapentin 300 MG CAP PO SCH ×2 (08:39→20:27)
[2021-07-28] MEDS: Carvedilol 25 MG TAB PO SCH ×2 (08:40→18:31)
[2021-07-28] MEDS: hydrALAZINE 25 MG TAB PO SCH ×3 (08:40→20:30)
[2021-07-28] MEDS: Amiodarone 200 MG TAB PO SCH (08:41)
[2021-07-28] MEDS: Senokot S 8.6-50 MG TAB PO SCH ×2 (08:42→20:33)
[2021-07-28] MEDS: Sildenafil Citrate 20 MG TAB PO SCH (08:42)
[2021-07-28] MEDS: Lidocaine 5% Patch TD SCH (08:44)
[2021-07-28] MEDS: Iron Polysaccharides Complex 150 MG CAP PO SCH (08:44)
[2021-07-28] MEDS: EPOETIN ALFA-EPBX (ESRD) 4,000 UNIT/ML VIAL SC SCH (12:33)
[2021-07-28] MEDS ORDERED: Ondansetron PF 4 MG/2 ML Vial IVP SCH (13:00)
[2021-07-28] MEDS ORDERED: diphenhydrAMINE 50 MG/ML VIAL IVP SCH (18:45)
[2021-07-28] MEDS: Donepezil HCl 5 MG TAB PO SCH (20:25)
[2021-07-28] MEDS: Melatonin 3 MG TAB PO PRN (20:27)
[2021-07-28] MEDS: Atorvastatin Calcium 40 MG TAB PO SCH (20:29)
[2021-07-28] MEDS: Transdermal Patch Removal TOP SCH ×2 (20:34→20:37)
[2021-07-28] MEDS: rOPINIRole HCl 2 MG TAB PO SCH (20:36)
[2021-07-29] MEDS: BIOTENE MOUTH SPRAY 44.3 ML PO SCH ×5 (00:49→21:13)
[2021-07-29] MEDS: HYDROcodone/Acetaminophen 7.5/325 mg Tablet PO PRN ×4 (00:50→18:54)
[2021-07-29] MEDS: Ondansetron PF 4 MG/2 ML Vial IVP PRN ×2 (06:14→12:51)
[2021-07-29] MEDS: Cholecalciferol 1,000 UNITS (25 MCG) TAB PO SCH (08:26)
[2021-07-29] MEDS: Sildenafil Citrate 20 MG TAB PO SCH (08:26)
[2021-07-29] MEDS: Amiodarone 200 MG TAB PO SCH (08:27)
[2021-07-29] MEDS: Gabapentin 300 MG CAP PO SCH ×2 (08:27→21:11)
[2021-07-29] MEDS: Calcitriol 0.25 MCG CAP PO SCH (08:27)
[2021-07-29] MEDS: Aspirin 81 mg Enteric Coated Tablet PO SCH (08:27)
[2021-07-29] MEDS: hydrALAZINE 25 MG TAB PO SCH ×3 (08:27→21:10)
[2021-07-29] MEDS: Lidocaine 5% Patch TD SCH (08:28)
[2021-07-29] MEDS: Senokot S 8.6-50 MG TAB PO SCH ×2 (08:28→21:17)
[2021-07-29] MEDS: Carvedilol 25 MG TAB PO SCH ×2 (08:29→18:32)
[2021-07-29] MEDS: Iron Polysaccharides Complex 150 MG CAP PO SCH (10:32)
[2021-07-29 13:15] LABS: #Eosinphils 0.1 thou/uL (0.0-0.7); #Lymphocytes 0.6 thou/uL (1.20-3.40); #Monocytes 0.6 thou/uL (0.11-0.59); #Neutrophils 4.5 thou/uL (1.40-6.50); %Basophils 0.3 % (0.0-1.0); %Eosinophils 1.2 % (0.0-10.0); %Lymphocytes 9.6 % (21.0-51.0); %Monocytes 9.7 % (0.0-10.0); %Neutrophils 79.1 % (42.0-75.0); Hemoglobin 7.6 g/dL (12.0-16.0); Mean Corpuscular HGB CONC 32.3 g/dL (32.0-36.0); Mean Corpuscular Volume 89.8 fL (78.0-98.0); Mean Platelet Volume 8.4 fL (7.4-10.4); Platelet Count 112 thou/uL (130-400); RBC Distribution Width 16.4 % (11.5-14.5); Red Blood Cell (RBC) Count 2.64 mill/uL (4.20-5.40); White Blood Cell (WBC) Count 5.7 thou/uL (4.8-10.8)
[2021-07-29 13:53] LABS: Anion Gap 11 mmol/L (10-20); BUN (Urea Nitrogen) 16 mg/dL (9.8-20.1); Calc. Creatinine Clearance 35 mL/min (70-130); Carbon Dioxide 30 mmol/L (23-31); Chloride 91 mmol/L (98-107); Glucose 103 mg/dL (80-115); Potassium 4.1 mmol/L (3.5-5.1); Sodium 128 mmol/L (136-145)
[2021-07-29] MEDS: hydrOXYzine 25 MG TAB PO PRN ×2 (17:00→21:10)
[2021-07-29] MEDS: rOPINIRole HCl 2 MG TAB PO SCH (21:08)
[2021-07-29] MEDS: Atorvastatin Calcium 40 MG TAB PO SCH (21:09)
[2021-07-29] MEDS: Melatonin 3 MG TAB PO PRN (21:09)
[2021-07-29] MEDS: Donepezil HCl 5 MG TAB PO SCH (21:10)
[2021-07-29] MEDS: Transdermal Patch Removal TOP SCH ×2 (21:17→21:18)
[2021-07-30 00:17] LABS: SARS-CoV-2 PCR by NAA Not Detected (NotDetected)
[2021-07-30] MEDS: BIOTENE MOUTH SPRAY 44.3 ML PO SCH ×3 (01:01→16:27)
[2021-07-30 04:50] LABS: Anion Gap 10 mmol/L (10-20); BUN (Urea Nitrogen) 18 mg/dL (9.8-20.1); Calc. Creatinine Clearance 34 mL/min (70-130); Calcium 8.4 mg/dL (7.8-10.44); Carbon Dioxide 28 mmol/L (23-31); Chloride 95 mmol/L (98-107); Glucose 97 mg/dL (80-115); Potassium 3.9 mmol/L (3.5-5.1); Sodium 129 mmol/L (136-145)
[2021-07-30 07:53] VITALS: BP 154/54; TEMP 97.3
[2021-07-30] MEDS ORDERED: Heparin 10,000 UNITS/ 10 ML VIAL ONE (09:45)
[2021-07-30] MEDS: HYDROcodone/Acetaminophen 7.5/325 mg Tablet PO PRN (13:43)
[2021-07-30] MEDS: Sildenafil Citrate 20 MG TAB PO SCH (13:45)
[2021-07-30] MEDS: Iron Polysaccharides Complex 150 MG CAP PO SCH (13:45)
[2021-07-30] MEDS: Cholecalciferol 1,000 UNITS (25 MCG) TAB PO SCH (13:45)
[2021-07-30] MEDS: Senokot S 8.6-50 MG TAB PO SCH (13:46)
[2021-07-30] MEDS: Carvedilol 25 MG TAB PO SCH ×2 (13:46→16:27)
[2021-07-30] MEDS: Gabapentin 300 MG CAP PO SCH (13:47)
[2021-07-30] MEDS: Amiodarone 200 MG TAB PO SCH (13:47)
[2021-07-30] MEDS: hydrALAZINE 25 MG TAB PO SCH ×2 (13:47→16:27)
[2021-07-30] MEDS: Aspirin 81 mg Enteric Coated Tablet PO SCH (13:48)
[2021-07-30] MEDS: Calcitriol 0.25 MCG CAP PO SCH (13:49)
[2021-07-30] MEDS: Lidocaine 5% Patch TD SCH (13:49)
[2021-08-04] MEDS ORDERED: EPOETIN ALFA-EPBX (ESRD) 10,000 UNIT/ML VIAL SC SCH (09:00)
== END 2021-07-30 17:34 | DRG 264 ==
LOC: ERS 13:35 → EEVIPCON 13:35 → IMCU/EMU 16:21 → OBSVTOIN 07-07 03:29 → 2NO 07-13 18:44 → T4-B 07-22 16:46
PROVIDERS: ADMIT Emergency Medicine; ATTEND Emergency Medicine
PROC: 5A09357 Assistance with Respiratory Ventilation, Less than 24 Consecutive Hours, Continuous Positive Airway Pressure (ICD-10-PCS; 2021-07-07)
PROC: 5A1D70Z Performance of Urinary Filtration, Intermittent, Less than 6 Hours Per Day (ICD-10-PCS; principal; 2021-07-10)
PROC: 0JH60XZ Insertion of Tunneled Vascular Access Device into Chest Subcutaneous Tissue and Fascia, Open Approach (ICD-10-PCS; 2021-07-10)
PROC: 02HV33Z Insertion of Infusion Device into Superior Vena Cava, Percutaneous Approach (ICD-10-PCS; 2021-07-10)
PROC: B5181ZA Fluoroscopy of Superior Vena Cava using Low Osmolar Contrast, Guidance (ICD-10-PCS; 2021-07-10)
PROC: 02HV33Z Insertion of Infusion Device into Superior Vena Cava, Percutaneous Approach (ICD-10-PCS; 2021-07-10)
PROC: B548ZZA Ultrasonography of Superior Vena Cava, Guidance (ICD-10-PCS; 2021-07-10)
PROC: 30233N1 Transfusion of Nonautologous Red Blood Cells into Peripheral Vein, Percutaneous Approach (ICD-10-PCS; 2021-07-12)
PROC: 031B0ZF Bypass Right Radial Artery to Lower Arm Vein, Open Approach (ICD-10-PCS; 2021-07-17)
DX: I13.2 Hypertensive heart and chronic kidney disease with heart failure and with stage 5 chronic kidney disease, or end stage renal disease (principal); Z20.822 Contact with and (suspected) exposure to COVID-19; Z51.5 Encounter for palliative care; N18.6 End stage renal disease; I50.33 Acute on chronic diastolic (congestive) heart failure; J96.21 Acute and chronic respiratory failure with hypoxia; J96.22 Acute and chronic respiratory failure with hypercapnia; Z68.41 Body mass index [BMI] 40.0-44.9, adult; J44.1 Chronic obstructive pulmonary disease with (acute) exacerbation; N17.9 Acute kidney failure, unspecified; T82.848A Pain due to vascular prosthetic devices, implants and grafts, initial encounter; E87.1 Hypo-osmolality and hyponatremia; L03.311 Cellulitis of abdominal wall; F05 Delirium due to known physiological condition; N25.81 Secondary hyperparathyroidism of renal origin; E11.22 Type 2 diabetes mellitus with diabetic chronic kidney disease; F41.9 Anxiety disorder, unspecified; F31.9 Bipolar disorder, unspecified; I44.7 Left bundle-branch block, unspecified; S92.322A Displaced fracture of second metatarsal bone, left foot, initial encounter for closed fracture; S92.332A Displaced fracture of third metatarsal bone, left foot, initial encounter for closed fracture; S92.342A Displaced fracture of fourth metatarsal bone, left foot, initial encounter for closed fracture; D63.1 Anemia in chronic kidney disease; E11.65 Type 2 diabetes mellitus with hyperglycemia; W18.30XA Fall on same level, unspecified, initial encounter; E11.40 Type 2 diabetes mellitus with diabetic neuropathy, unspecified; I48.91 Unspecified atrial fibrillation; E66.01 Morbid (severe) obesity due to excess calories; I34.0 Nonrheumatic mitral (valve) insufficiency; Y83.8 Other surgical procedures as the cause of abnormal reaction of the patient, or of later complication, without mention of misadventure at the time of the procedure; K59.00 Constipation, unspecified; Z99.89 Dependence on other enabling machines and devices; Z99.81 Dependence on supplemental oxygen; Z88.5 Allergy status to narcotic agent; Z91.018 Allergy to other foods; Z79.899 Other long term (current) drug therapy; Z79.4 Long term (current) use of insulin; Z79.82 Long term (current) use of aspirin; Z79.51 Long term (current) use of inhaled steroids; Z86.73 Personal history of transient ischemic attack (TIA), and cerebral infarction without residual deficits; Z95.0 Presence of cardiac pacemaker; Z95.5 Presence of coronary angioplasty implant and graft; Z95.1 Presence of aortocoronary bypass graft; Z87.891 Personal history of nicotine dependence
CPT/HCPCS: 36415; 36416; 36430; 36600; 51702; 71045; 76705; 80048; 80053; 80202; 81003; 81015; 82553; 82805; 83036; 83735; 83880; 83930; 83935; 83970; 84100; 84300; 84443; 84484; 85025; 85379; 86580; 86704; 86706; 86803; 86850; 86870; 86900; 86901; 86905; 86922; 87340; 90935; 93005; 93970; 94640; 94660; 96365; 96375; 96376; C1751; C1752; C1776; G0257; G0378; J0690; J1100; J1200; J1644; J1815; J1940; J2060; J2270; J2405; J2704; J2720; J2920; J2930; J3010; J3370; J3475; J3490; J7050; J7512; J7611; J7620; P9016; P9047; Q5105; S0020; S0028; U0002; U0003; U0005

== ENCOUNTER 2021-08-01 07:25 | Emergency (ER) | payer MEDICARE, OTHER ==
[2021-08-01] MEDS ORDERED: Fentanyl 100 MCG/2 ML VIAL ONE (07:47)
[2021-08-01] MEDS ORDERED: methylPREDNISolone Sod Succ/PF 125 MG/2 ML VIAL ONE (07:47)
[2021-08-01 07:58] LABS: #Eosinphils 0.1 thou/uL (0.0-0.7); #Lymphocytes 0.5 thou/uL (1.20-3.40); #Monocytes 0.5 thou/uL (0.11-0.59); %Eosinophils 1.5 % (0.0-10.0); %Lymphocytes 8.7 % (21.0-51.0); %Monocytes 7.5 % (0.0-10.0); %Neutrophils 82.3 % (42.0-75.0); Hemoglobin 8.9 g/dL (12.0-16.0); Mean Corpuscular HGB CONC 31.4 g/dL (32.0-36.0); Mean Corpuscular Volume 89.2 fL (78.0-98.0); Mean Platelet Volume 7.7 fL (7.4-10.4); Platelet Count 173 thou/uL (130-400); Red Blood Cell (RBC) Count 3.17 mill/uL (4.20-5.40)
[2021-08-01 08:30] LABS: ALT (SGPT) 9 U/L (8-55); AST (SGOT) 16 U/L (5-34); Albumin 3.2 g/dL (3.4-4.8); Alkaline Phosphatase 146 U/L (40-110); Anion Gap 11 mmol/L (10-20); BUN (Urea Nitrogen) 16 mg/dL (9.8-20.1); Bilirubin, Total 0.4 mg/dL (0.2-1.2); Calc. Creatinine Clearance 0 mL/min (70-130); Calcium 9.4 mg/dL (7.8-10.44); Carbon Dioxide 31 mmol/L (23-31); Chloride 96 mmol/L (98-107); Globulin 2.4 g/dL (2.4-3.5); Glucose 105 mg/dL (80-115); Potassium 4.3 mmol/L (3.5-5.1); Protein, Total 5.6 g/dL (5.8-8.1); Sodium 134 mmol/L (136-145)
[2021-08-01] MEDS ORDERED: Heparin 10,000 UNITS/ 10 ML VIAL ONE (10:57)
[2021-08-01] MEDS ORDERED: Gabapentin 300 MG CAP PO SCH (11:30)
[2021-08-01] MEDS ORDERED: methylPREDNISolone Sod Succ/PF 125 MG/2 ML VIAL IVP SCH (11:30)
== END 2021-08-01 19:31 | disposition home or self-care (01) ==
LOC: ERS 07:25
DX: R09.02 Hypoxemia (principal); I50.9 Heart failure, unspecified; N18.6 End stage renal disease; E11.9 Type 2 diabetes mellitus without complications; J44.9 Chronic obstructive pulmonary disease, unspecified; I25.2 Old myocardial infarction; Z86.73 Personal history of transient ischemic attack (TIA), and cerebral infarction without residual deficits; Z99.2 Dependence on renal dialysis; Z87.891 Personal history of nicotine dependence; Z79.4 Long term (current) use of insulin; Z79.899 Other long term (current) drug therapy
CPT/HCPCS: 36415; 71045; 71275; 80053; 83880; 84484; 85025; 85379; 90935; 93005; 94640; 96374; 96375; G0257; J1644; J2930; J3010; J7620

== ENCOUNTER 2021-12-09 15:58 | Emergency (ER) | payer MEDICARE, OTHER ==
[2021-12-09 17:34] LABS: #Eosinphils 0.1 thou/uL (0.0-0.7); #Lymphocytes 1.1 thou/uL (1.20-3.40); #Monocytes 0.5 thou/uL (0.11-0.59); #Neutrophils 5.7 thou/uL (1.40-6.50); %Basophils 0.1 % (0.0-1.0); %Eosinophils 0.9 % (0.0-10.0); %Lymphocytes 14.7 % (21.0-51.0); %Monocytes 6.8 % (0.0-10.0); %Neutrophils 77.5 % (42.0-75.0); Hemoglobin 10.7 g/dL (12.0-16.0); Mean Corpuscular HGB CONC 32.3 g/dL (32.0-36.0); Mean Corpuscular Hemoglobin 28.7 pg (27.0-31.0); Mean Corpuscular Volume 88.7 fL (78.0-98.0); Mean Platelet Volume 8.5 fL (7.4-10.4); Platelet Count 220 thou/uL (130-400); RBC Distribution Width 15.8 % (11.5-14.5); Red Blood Cell (RBC) Count 3.72 mill/uL (4.20-5.40); White Blood Cell (WBC) Count 7.3 thou/uL (4.8-10.8)
[2021-12-09 17:54] LABS: ALT (SGPT) 18 U/L (8-55); AST (SGOT) 17 U/L (5-34); Albumin 3.5 g/dL (3.4-4.8); Alkaline Phosphatase 167 U/L (40-110); Anion Gap 14 mmol/L (10-20); BUN (Urea Nitrogen) 21 mg/dL (9.8-20.1); Bilirubin, Total 0.4 mg/dL (0.2-1.2); Calc. Creatinine Clearance 0 mL/min (70-130); Calcium 9.1 mg/dL (7.8-10.44); Carbon Dioxide 23 mmol/L (23-31); Chloride 106 mmol/L (98-107); Globulin 3.5 g/dL (2.4-3.5); Glucose 126 mg/dL (80-115); Sodium 139 mmol/L (136-145)
[2021-12-09 17:56] LABS: Acetaminophen Less than 10.0 mcg/mL (10.0-30.0); Alcohol Less than 10 mg/dL (Less than 10); Salicylate Less than 8.0 mg/dL (15.0-30.0)
[2021-12-09 19:06] LABS: Amphetamine Not Detected (NotDetected); Barbiturates Screen Not Detected (NotDetected); Benzodiazepine Screen Not Detected (NotDetected); Cocaine Metabolite Screen Not Detected (NotDetected); Methadone Not Detected (NotDetected); Methamphetamine Not Detected (NotDetected); Opiate Screen Not Detected (NotDetected); Oxycodone Screen Not Detected (NotDetected); Phencyclidine (PCP) Not Detected (NotDetected); THC/Cannabinoid Screen Not Detected (NotDetected); Tricyclic Screen Not Detected (NotDetected)
[2021-12-09 19:21] LABS: Bacteria/HPF None Seen HPF (None Seen); Bilirubin Negative (Negative); Blood, Urine Trace (Negative); Clarity Clear (Clear); Glucose, Urine (Dipstick) 100 mg/dL (Negative); Ketone, Urine Negative (Negative); Leukocyte 250 Leu/uL (Negative); Nitrite Negative (Negative); Protein, Urine (Dipstick) 300 mg/dL (Neg-Trace); RBC/HPF 0-3 HPF (0-3); Specific Gravity, Urine 1.014 (1.002-1.036); Squamous Epithelial 0-3 HPF (0-3); Urobilinogen Normal mg/dL (Less than 2)
== END 2021-12-09 23:20 | disposition home or self-care (01) ==
LOC: ERS 15:58
DX: F32.A Depression, unspecified (principal); I25.2 Old myocardial infarction; I50.9 Heart failure, unspecified; J44.9 Chronic obstructive pulmonary disease, unspecified; F17.200 Nicotine dependence, unspecified, uncomplicated; Z86.73 Personal history of transient ischemic attack (TIA), and cerebral infarction without residual deficits
CPT/HCPCS: 36415; 80053; 80306; 80307; 81003; 81015; 84443; 85025; 99285